=== PATIENT | male | born 1965 | race Caucasian/White ===

== ENCOUNTER 2020-03-29 07:06 | Inpatient (IN) | payer OTHER ==
[2020-03-29 07:54] LABS: Basophils % 0.8 % (0-1.3); Hematocrit 29.8 % (39.6-49.0); Lymphocytes % 14.6 % (15.3-44.8); MPV 10.1 fL (7.6-11.3); RBC Red Blood Cell Count 2.81 M/uL (4.33-5.43)
[2020-03-29 08:13] LABS: Albumin 3.3 g/dL (3.4-5.0); Bilirubin Direct 0.7 mg/dL (0-0.2); Bilirubin Total 1.1 mg/dL (0.2-1.0); Potassium 3.7 mmol/L (3.5-5.1); Protein, Total 8.2 g/dL (6.4-8.2)
--- NOTE | 2020-03-29 09:00 | RAD REPORT ---
EXAM DESCRIPTION: CT - Chest Abd Pelvis Wo Con - 03/29/2020 8:40 am CLINICAL HISTORY: Chest and abdominal pain COMPARISON: None TECHNIQUE: Computed axial tomography of the chest, abdomen and pelvis was obtained. Oral contrast wa s given. IV contrast was not requested. All CT scans are performed using dose optimization technique as appropriate and may include automated exposure control or mA/KV adjustment according to patient size. FINDINGS: The evaluation of mediastinum, matthieu, vessels and solid organs is limited secondary to the lack of IV contrast administration No mediastinal or hilar lymphadenopathy is seen. A pleural effusion is not present. A pericardial effusion is not seen. A lung consolidation is not present. The lungs are essentially clear. The the liver is enlarged. Fatty infiltration is present. Several gallstones. Spleen, pancreas, adrenals and left kidney appear grossly normal. 23 millimeter right renal cyst susp ected There is no evidence of diverticulitis. . Limited evaluation of the appendix due to lack of oral cont rast. Mild stranding is present within the fat adjacent to the hepatic flexure of the colon. The adjacent c olon wall thickness and caliber appears normal IMPRESSION: Moderate hepatomegaly with fatty infiltration Cholelithiasis
--- NOTE | 2020-03-29 09:00 | RAD REPORT ---
EXAM DESCRIPTION: [place] Single View03/29/2020 7:47 am CLINICAL HISTORY: Chest pain COMPARISON: 2015 FINDINGS: The lungs appear clear of acute infiltrate. The heart is normal size IMPRESSION: No acute abnormalities displayed
[2020-03-29 09:10] LABS: Anisocytosis SLIGHT; Blood Morphology Comment NOTED (NOT SEEN); Macrocytosis 1+; Platelet Estimate ADEQ
--- NOTE | 2020-03-29 09:11 | EDPHYS ---
Physician Documentation [facility] Name: Koko Iniguez Age: 55 yrs Sex: Male : 1965 Arrival Date: 03/29/2020 Time: 07:06 Bed 4 Private MD: ED Physician Kash Michael HPI: 03/29 07:21 This 55 yrs old Male presents to ER via Unassigned with complaints of Side rn Pain. 07:21 The patient presents with abdominal pain in the right upper quadrant. Onset: The rn symptoms/episode began/occurred at 00:00. The symptoms do not radiate. Associated signs and symptoms: Pertinent positives: nausea and vomiting, Pertinent negatives: blood in stools, chest pain, fever, testicular pain, vomiting, vomiting blood. The symptoms are described as constant, sharp. Modifying factors: The symptoms are alleviated by nothing, the symptoms are aggravated by movement, touching the area. Severity of pain: At its worst the pain was moderate in the emergency department the pain is unchanged. The patient has not experienced similar symptoms in the past. The patient has not recently seen a physician. Reports woke up at midnight, right sided pain, no radiation, threw up once, no blood. No hx of gallbladder problems. Yesterday no fever or cough. Reports pain worse with inspiration, and touching area. Fell 2 days ago but fell onto left side. No bruising. No sob. . Historical: - Allergies: 07:21 No Known Allergies; aa5 - PMHx: 07:21 Hypertension; Thyroid problem; aa5 - Immunization history:: Adult Immunizations up to date. - Social history:: Smoking status: Patient denies any tobacco usage or history of. - Family history:: not pertinent. - Hospitalizations: : No recent hospitalization is reported. ROS: 07:21 Constitutional: Negative for fever, chills, and weight loss, Eyes: Negative for injury, rn pain, redness, and discharge, Neck: Negative for injury, pain, and swelling, Cardiovascular: Negative for chest pain, palpitations, and edema, Respiratory: Negative for shortness of breath, cough, wheezing Abdomen/GI: + RUQ abd pain MS/Extremity: Negative for injury and deformity, Skin: Negative for injury, rash, and discoloration, Neuro: Negative for headache, weakness, numbness, tingling, and seizure. Exam: 07:24 Constitutional: This is a well developed, well nourished patient who is awake, alert, rn and in no acute distress. Ambulatory to room without assistance or distress Head/Face: Normocephalic, atraumatic. Chest/axilla: Normal chest wall appearance and motion. Nontender with no deformity. No lesions are appreciated. Cardiovascular: Tachycardic, regular Respiratory: Lungs have equal breath sounds bilaterally, clear to auscultation. No increased work of breathing, no retractions or nasal flaring. Abdomen/GI: Soft, + RUQ tenderness, no rebound, neg padilla MS/ Extremity: Pulses equal, no cyanosis. Neurovascular intact. Full, normal range of motion. Equal circumference. Neuro: Awake and alert, GCS 15, oriented to person, place, time, and situation. Cranial nerves II-XII grossly intact. Motor strength 5/5 in all extremities. Sensory grossly intact. Cerebellar exam normal. Normal gait. 07:45 ECG was reviewed by the Attending Physician. rn Vital Signs: 07:07 BP 138 / 91; Pulse 109; Resp 18 S; Temp 98.3(O); Pulse Ox 100% on R/A; Weight 103.42 kg aa5 (R); Height 5 ft. 11 in. (180.34 cm) (R); Pain 8/10; 08:00 BP 131 / 73; Pulse 99; Resp 17; Pulse Ox 99% ; bp 09:00 BP 125 / 69; Pulse 103; Resp 18; Pulse Ox 99% ; bp 10:00 BP 119 / 77; Pulse 96; Resp 16; Pulse Ox 99% ; bp 11:00 BP 121 / 81; Pulse 99; Resp 16; Pulse Ox 99% ; bp 12:00 BP 113 / 88; Pulse 102; Resp 16; Pulse Ox 100% ; bp 13:28 BP 120 / 66; Pulse 97; Resp 17; Pulse Ox 100% on R/A; rb1 07:07 Body Mass Index 31.80 (103.42 kg, 180.34 cm) aa5 MDM: 07:07 Patient medically screened. rn 09:08 Differential diagnosis: cholecystitis, Cholelithiasis, gastritis, gastroesophageal rn reflux disease, Hepatitis, non-specific abd pain, pancreatitis, Peptic Ulcer Disease. Data reviewed: vital signs, nurses notes, lab test result(s), radiologic studies, CT scan, plain films, and as a result, I will admit patient. Counseling: I had a detailed discussion with the patient and/or guardian regarding: the historical points, exam findings, and any diagnostic results supporting the discharge/admit diagnosis, lab results, radiology results, the need for further work-up and treatment in the hospital. Admission orders: after a detailed discussion of the patient's condition and case, the admit orders are written by me. ED course: Pt admitted to Dr. Bearden for cholelithiasis, and more notably, KALYN, creatine 3.5. NO evidence of cholecystitis, awaiting call back from Dr. Zimmerman for consultation. . 09:24 ED course: Consulted with Dr. Zimmerman, will consult on patient. . rn 03/29 07:20 Order name: Basic Metabolic Panel; Complete Time: 08:17 rn 03/29 07:20 Order name: CBC with Diff; Complete Time: 09:11 rn 03/29 07:20 Order name: Hepatic Function; Complete Time: 08:17 rn 03/29 07:20 Order name: Lipase; Complete Time: 08:17 rn 03/29 09:10 Order name: Manual Differential; Complete Time: 09:11 EDLA 03/29 09:14 Order name: Hepatitis Panel eb 03/29 07:20 Order name: IV Saline Lock; Complete Time: 07:39 rn 03/29 07:20 Order name: XRAY Chest (1 view); Complete Time: 09:03 rn 03/29 07:20 Order name: EKG; Complete Time: 07:21 rn 03/29 08:20 Order name: Chest Abd Pelvis Wo Con; Complete Time: 09:03 EDLA 03/29 07:20 Order name: Labs collected and sent; Complete Time: 07:39 rn 03/29 07:20 Order name: EKG - Nurse/Tech; Complete Time: 07:39 rn EC:45 Rate is 101 beats/min. Rhythm is regular. QRS [place] is Normal. DE interval is normal. rn QRS interval is normal. QT interval is normal. No Q waves. T waves are Normal. No ST changes noted. Clinical impression: Sinus tachycardia. Interpreted by me. Reviewed by me. Administered Medications: 10:20 Drug: NS 0.9% 1000 ml Route: IV; Rate: 1000 ml; Site: right antecubital; bp 11:05 Follow up: IV Status: Completed infusion; IV Intake: 1000ml bp 11:21 Drug: Flagyl 500 mg Volume: 100 ml; Route: IVPB; Rate: 200 ml/hr; Infused Over: 30 bp mins; Site: right antecubital; 11:54 Follow up: IV Status: Completed infusion; IV Intake: 100ml bp 11:54 Drug: Cipro 400 mg Volume: 200 ml; Route: IVPB; Infused Over: 60 mins; Site: right bp antecubital; 13:39 Follow up: IV Status: Completed infusion; IV Intake: 200ml bp Disposition: 03/29/20 09:10 Hospitalization ordered by Kasie Bearden for Inpatient Admission. Preliminary diagnosis are Cholelithiasis, Acute kidney failure. - Bed requested for Telemetry/MedSurg (Inpatient). - Status is Inpatient Admission. bp - Condition is Stable. - Problem is new. - Symptoms are unchanged. Signatures: Dispatcher [employer] EDMS Kash Michael MD MD rn Calderon, Audri, RN RN aa5 Luiz Donahue RN RN Apolonia Crowell Corrections: (The following items were deleted from the chart) 08:20 07:21 Abdomen Pelvis W Con+CT.RAD.BRZ ordered. EDLA EDLA 13:00 09:10 Hospitalization Ordered by Kasie Bearden MD for Inpatient Admission. Preliminary eb diagnosis is Cholelithiasis; Acute kidney failure. Bed requested for Telemetry/MedSurg (Inpatient). Status is Inpatient Admission. Condition is Stable. Problem is new. Symptoms are unchanged. rn 13:20 13:00 03/29/2020 09:10 Hospitalization Ordered by Kasie Bearden MD for Inpatient eb Admission. Preliminary diagnosis is Cholelithiasis; Acute kidney failure. Bed requested for [facility] ER HOLD. Status is Inpatient Admission. Condition is Stable. Problem is new. Symptoms are unchanged. eb 14:15 13:20 03/29/2020 09:10 Hospitalization Ordered by Kasie Bearden MD for Inpatient bp Admission. Preliminary diagnosis is Cholelithiasis; Acute kidney failure. Bed requested for Telemetry/MedSurg (Inpatient). Status is Inpatient Admission. Condition is Stable. Problem is new. Symptoms are unchanged. eb
--- NOTE | 2020-03-29 09:11 | ER ---
Nurse's Notes [facility] Name: Koko Iniguez Age: 55 yrs Sex: Male : 1965 Arrival Date: 03/29/2020 Time: 07:06 Bed 4 Private MD: Diagnosis: Cholelithiasis;Acute kidney failure Presentation: 03/29 07:07 Chief complaint: Patient states: RUQ pain that woke him up at 0000. Pt denies aa5 nausea/vomiting. Pt states "I don't want pain medicine". Pt states "I also have an appointment with a home health care physician about 2 weeks from now because I've had a few fainting episodes". 07:07 Coronavirus screen: Proceed with normal triage. Patient denies a cough. Patient denies aa5 shortness of breath or difficulty breathing. Patient denies measured and/or subjective temperature greater than 100.4F prior to today's visit. Patient denies travel on a cruise ship or to a country the [facility] currently lists as an affected area. Patient denies contact with known and/or suspected case of COVID-19. Ebola Screen: Patient negative for fever greater than or equal to 101.5 degrees Fahrenheit, and additional compatible Ebola Virus Disease symptoms. Initial Sepsis Screen: Does the patient meet any 2 criteria? No. Patient's initial sepsis screen is negative. Does the patient have a suspected source of infection? No. Patient's initial sepsis screen is negative. Risk Assessment: Do you want to hurt yourself or someone else? Patient reports no desire to harm self or others. Onset of symptoms was March 29, 2020. 07:07 Acuity: VIRGILIO 3 aa5 07:07 Method Of Arrival: Ambulatory aa5 Triage Assessment: 07:10 General: Appears in no apparent distress. comfortable, Behavior is cooperative, bp appropriate for age, anxious. Pain: Complains of pain in posterior aspect of right lateral abdomen and right upper quadrant. EENT: No deficits noted. Neuro: No deficits noted. Cardiovascular: No deficits noted. Respiratory: No deficits noted. GI: No signs and/or symptoms were reported involving the gastrointestinal system. : No signs and/or symptoms were reported regarding the genitourinary system. Derm: No deficits noted. Musculoskeletal: No deficits noted. Historical: - Allergies: 07:21 No Known Allergies; aa5 - PMHx: 07:21 Hypertension; Thyroid problem; aa5 - Immunization history:: Adult Immunizations up to date. - Social history:: Smoking status: Patient denies any tobacco usage or history of. - Family history:: not pertinent. - Hospitalizations: : No recent hospitalization is reported. Screenin:10 Abuse screen: Denies threats or abuse. Denies injuries from another. Nutritional bp screening: No deficits noted. Tuberculosis screening: No symptoms or risk factors identified. Fall Risk None identified. Assessment: 07:10 General: SEE TRIAGE NOTE. bp 08:34 Reassessment: PT TO CT. bp 08:44 Reassessment: PT RETURNED FROM CT. bp 10:00 Reassessment: ADMIT INITIATED. VS STABLE ON MONITOR. bp 12:59 Reassessment: Called and left a voicemail for Dr. Bearden asking for pain medication per rb1 pt. request. 13:40 Reassessment: ADMIT COMPLETE. PT RINA TO 211, REPORT TO PRIYANK ALMEIDA. bp Vital Signs: 07:07 BP 138 / 91; Pulse 109; Resp 18 S; Temp 98.3(O); Pulse Ox 100% on R/A; Weight 103.42 kg aa5 (R); Height 5 ft. 11 in. (180.34 cm) (R); Pain 8/10; 08:00 BP 131 / 73; Pulse 99; Resp 17; Pulse Ox 99% ; bp 09:00 BP 125 / 69; Pulse 103; Resp 18; Pulse Ox 99% ; bp 10:00 BP 119 / 77; Pulse 96; Resp 16; Pulse Ox 99% ; bp 11:00 BP 121 / 81; Pulse 99; Resp 16; Pulse Ox 99% ; bp 12:00 BP 113 / 88; Pulse 102; Resp 16; Pulse Ox 100% ; bp 13:28 BP 120 / 66; Pulse 97; Resp 17; Pulse Ox 100% on R/A; rb1 07:07 Body Mass Index 31.80 (103.42 kg, 180.34 cm) aa5 ED Course: 07:06 Patient arrived in ED. ds1 07:07 Kash Michael MD is Attending Physician. rn 07:07 Arm band placed on Patient placed in an exam room, on a stretcher. aa5 07:10 Patient has correct armband on for positive identification. Bed in low position. Call bp light in reach. Side rails up X2. 07:17 Emmanuel Rothman, RN is Primary Nurse. rv 07:22 Primary Nurse role handed off by Emmanuel Rothman RN bp 07:22 Luiz Donahue, ELLE is Primary Nurse. bp 07:24 Triage completed. aa5 07:31 Radiology exam delayed due to lab results not completed at this time. (BUN/Creatinine). bq 07:35 Inserted saline lock: 20 gauge in right antecubital area, using aseptic technique. bp Blood collected. 07:38 EKG done, by ED staff, reviewed by Kash Michael MD. jb1 07:48 XRAY Chest (1 view) In Process Unspecified. EDMS 08:40 Chest Abd Pelvis Wo Con In Process Unspecified. EDMS 08:40 CT completed. Patient tolerated procedure well. Patient moved back from CT. bq 09:10 Kasie Bearden MD is Hospitalizing Provider. rn 13:39 No provider procedures requiring assistance completed. Patient admitted, IV remains in bp place. Administered Medications: 10:20 Drug: NS 0.9% 1000 ml Route: IV; Rate: 1000 ml; Site: right antecubital; bp 11:05 Follow up: IV Status: Completed infusion; IV Intake: 1000ml bp 11:21 Drug: Flagyl 500 mg Volume: 100 ml; Route: IVPB; Rate: 200 ml/hr; Infused Over: 30 bp mins; Site: right antecubital; 11:54 Follow up: IV Status: Completed infusion; IV Intake: 100ml bp 11:54 Drug: Cipro 400 mg Volume: 200 ml; Route: IVPB; Infused Over: 60 mins; Site: right bp antecubital; 13:39 Follow up: IV Status: Completed infusion; IV Intake: 200ml bp Intake: 11:05 IV: 1000ml; Total: 1000ml. bp 11:54 IV: 100ml; Total: 1100ml. bp 13:39 IV: 200ml; Total: 1300ml. bp Outcome: 09:10 Decision to Hospitalize by Provider. rn 13:39 Admitted to Med/surg accompanied by tech, via wheelchair, room 211, with chart, Report bp called to PRIYANK ALMEIDA 13:39 Condition: stable 13:39 Instructed on the need for admit. 14:15 Patient left the ED. bp Signatures: Dispatcher [employer] EDEctor Gómez jb1 Veronica Dorsey, Claudine ds1 Kash Michael MD MD rn Calderon, Penny RN RN aa5 Claudia Ho, RN RN rb1 Luiz Donahue RN RN bp Stephan, ELLE Benitez RN rv
[2020-03-29] MEDS ORDERED: NA CHLORIDE 0.9% 1,000 ML ONE (10:35)
[2020-03-29] MEDS ORDERED: METRONIDAZOLE 500mg IVPB 500 MG/100 ML BAG IV ONE (11:23)
[2020-03-29] MEDS ORDERED: CIPROFLOXACIN 400mg IV 400 MG/200 ML BAG IV ONE (11:23)
--- NOTE | 2020-03-29 14:03 | CON ---
Date of Consultation: 03/29/2020 Reason For Consultation: Abdominal pain. History Of Present Illness: Patient is a 55-year-old gentleman who presented to the emergency room w ith acute onset of right upper quadrant, right lateral quadrant abdominal pain which started at midni ght. He had some chicken last night and green beans. He had some nausea and vomiting this morning. No diarrhea or constipation. No blood in his stool. No dysuria or hematuria. No sore throat, runn y nose, cough, headaches. He does have some dizziness and he has had recent episodes of syncope abou t 3 times and as an outpatient, he has been referred to Cardiology for further workup which has not b een done and he has no fever or chills at this time. Review of Systems: Otherwise unremarkable. Past Medical History: Hypertension, high cholesterol, prediabetic. Past Surgical History: Negative. Allergies: NO ALLERGIES. Social History: He denies smoking or drinking. Family History: Significant for coronary artery disease. Physical Examination: Vital Signs: Pulse is 109, blood pressure is 138/91. He is afebrile. He is awake, alert, and orient ed x3. Head and neck: Cranial nerves 2 through 12 grossly within normal limits. No neck masses. No JVD. Throat clear. Neck is supple. Chest: Clear. Heart: S1 and S2. Abdomen: Soft, nondistended, positive tenderness in the right upper quadrant, lateral to Killian's po int. No rebound, rigidity, or guarding. EXTREMITIES: Adequately perfused. Nontender. NEURO: Nonfocal. Diagnostic Data: CT of the chest, abdomen, pelvis reveals fatty infiltration, cholelithiasis, and mi ld stranding within the fat adjacent to the hepatic flexure of the colon. The adjacent colon wall th ickness however appears normal. Laboratory Data: White count is 6.9. There is no left shift. His MCV is 106.1. H and H are 10.2 a nd 29.8. Monocytes are 18. His chemistry reveals a BUN of 32, creatinine of 3.48, CO2 is 25. His gl ucose is 159, calcium is 9.8, his total bilirubin is 1.1, direct bilirubin is 0.7, AST is 117, ALT is 86, alkaline phosphatase is 206 albumin is 3.3, lipase is 290. Assessment: A 55-year-old gentleman with multiple medical problems, as well as abdominal pain, libby lithiasis, possibly some colitis, acute renal failure, and history of syncope. Recommendations: At this time, patient needs further workup with an evaluation of his kidneys with N ephrology consultation. His history of syncope needs to be evaluated as well. Perhaps the Cardiolog y or neurological or both evaluations need to be done. As far as the gallbladder, there is no radiog raphic evidence of acute cholecystitis; however, he is tender in the right upper quadrant that could be from the fat stranding, fat inflammation next to the colon, but with the liver functions being abn ormal, I would recommend getting an MRCP and GI evaluation. After the aforementioned workup is compl eted, we will make further recommendations. Patient should be on empiric antibiotics. Plan of care was discussed with Dr. Bearden and Dr. Michael. ROMÁN/MICHAEL Voice ID: [id number] Report ID: [id number]
[2020-03-29] MEDS ORDERED: D5.45NS W/KCL 20MEQ 1,000 ML IV SCH (14:44)
[2020-03-29] MEDS ORDERED: ONDANSETRON 4 MG/2 ML VIAL IV PRN (14:44)
[2020-03-29] MEDS ORDERED: ACETAMINOPHEN 500 MG TAB PO PRN (14:44)
[2020-03-29] MEDS: MORPHINE 2 MG/ML SYR IV PRN ×3 (15:19→23:38)
[2020-03-29 16:01] VITALS: BMI 32.7
[2020-03-29] MEDS: METRONIDAZOLE 500mg IVPB 500 MG/100 ML BAG IV SCH (16:04)
--- NOTE | 2020-03-29 16:39 | RAD REPORT ---
EXAM DESCRIPTION: US - Abdomen Exam Complete - 03/29/2020 4:09 pm CLINICAL HISTORY: Abdominal pain COMPARISON: none FINDINGS: The liver has an increased echotexture. The liver is enlarged Multiple gallstones. The gallbladder wall is thickened. . The biliary tree is normal caliber. The pancreas is normal in size and echotexture The right kidney measures 11 centimeters with a normal echotexture. The left kidney measures 13 centimeters with a normal echotexture. The spleen measures 14 centimeters. The abdominal aorta and inferior vena cava appear unremarkable IMPRESSION: Increased hepatic echotexture consistent with fatty infiltration. Hepatomegaly Cholelithiasis. Thickened gallbladder wall may indicate cholecystitis Mild splenomegaly
[2020-03-29] MEDS ORDERED: Ringers Lactate 1,000 ML IV SCH ×2 (18:00)
[2020-03-29] MEDS: CEFTRIAXONE/SWI 1gm 1 GM/10 ML SYR IVP SCH (20:39)
--- NOTE | 2020-03-29 22:00 | HP ---
Date of Admission: 03/29/2020 Primary Care Physician: Dr. Downs. Consultants: Dr. Loya with GI and Dr. Zimmerman with General Surgery. Chief Complaint: Right upper quadrant abdominal pain. History Of Present Illness: Patient is a 55-year-old male with past medical history of hypertension, hypothyroidism, hyperlipidemia, comes in to the hospital with acute right upper quadrant abdominal p ain. Patient states that he woke up around midnight with right upper quadrant abdominal pain which w as nonradiating, worse with movement. Patient denies any previous history of pain in the similar pos ition. Patient did report some nausea and vomiting associated with the pain. Otherwise, he denies a ny fevers, chills, or any recent exposure to the pandemic. Patient came into the ER for further eval uation. His symptoms were constant, moderate, progressively worsening. In the ER, his workup reveal ed normal white blood cell count. His liver enzymes showed a total bilirubin of 1.1, AST was 117, AL T 86, alkaline phosphatase 206. Hepatitis panel was obtained and is pending. CT scan of his chest, abdomen and pelvis shows moderate hepatomegaly with fatty infiltration and cholelithiasis and an inci dental right renal cyst. Lungs are clear. Patient was given pain medications, IV antibiotics and IV fluids and then referred for admission. When the patient was seen in the ER, he was awake, alert, o riented x3, not in some acute distress. Past Medical History: Hypertension, hypothyroidism, hyperlipidemia. Surgical History: None. Allergies: NO KNOWN DRUG ALLERGIES. Social History: Patient denies any tobacco use, alcohol use, or illicit drug use. Family History: Patient denies any history of gallbladder disease in the family. Review of Systems: Ten-point system reviewed, negative except as per HPI. Physical Examination: Vital Signs: Temperature 98.3, heart rate 109, respirations 18, blood pressure 138/91, O2 100% on ro om air. General: Awake, alert, oriented x3 obese male in some mild distress, ill-appearing. HEENT: Normocephalic, atraumatic. PERRLA, EOMI. Dry mucous membranes. Oropharynx is clear. Conju nctivae anicteric. Neck: Supple. No JVD trachea midline. CV: S1, S2. Sinus tachycardia. Peripheral pulses present. No murmurs. Respiratory: Moving air well bilaterally. No wheezing or stridor. No use of accessory muscles. Gastrointestinal: Abdomen is soft. Tenderness to palpation in the right upper quadrant. There is s ome voluntary guarding. No rebound or rigidity. Positive bowel sounds. Extremities: No clubbing, cyanosis. Minimal pedal edema. No calf tenderness. Neuro: Cranial nerves 2 through 12 intact grossly. No focal neurological deficit. Speech is normal . Skin: No rashes. Normal skin turgor. Psych: Mood is okay. Affect is full. Insight and judgment are good. Laboratory Data: Sodium 137, potassium 3.7, chloride 101, CO2 of 25, BUN 32, creatinine 3.48, glucos e 159. T bilirubin 1.1, AST 117, ALT is 86, alkaline phosphatase 206, albumin 3.3. WBC 6.9, H and H 10.2 and 29.8, platelets 156, neutrophils 65%. Imaging Studies: CT chest, abdomen pelvis: Moderate hepatomegaly with fatty infiltration and cholel ithiasis, 23 mm right renal cyst. Chest x-ray shows no acute abnormalities, personally reviewed. Assessment And Plan: A 55-year-old male with 1.Acute cholelithiasis. Ultrasound not available. We will obtain MRCP. Patient has elevated total bilirubin. Rule out common bile duct stone. We will consult GI, Dr. oLya for possible ERCP. Dr. Zimmerman has been consulted. We will continue with empiric antibiotics, IV fluids. Keep n.p.o., antie metics and pain medications with IV morphine. 2.Fatty liver disease. Patient has been counseled. He will need a drastic change in his diet and e xercise regimen. He understands this may lead to liver cirrhosis if untreated for 10-20 years and ma y require liver transplant and may even result in . 3.Hyperbilirubinemia secondary to above. 4.Acute kidney injury, unclear etiology. Consult Nephrology. Patient will need workup. Last known creatinine from 2016 was normal. Patient denies any history of chronic kidney disease. We will nee d to query regarding NSAID use. We will start on IV fluids and monitor creatinine level. Avoid any NSAIDs. 5.Essential hypertension. Resume home medications as appropriate. 6.Hypothyroidism. Continue Synthroid. 7.Mixed hyperlipidemia, statin. 8.Deep vein thrombosis prophylaxis with SCDs and Lovenox. PLAN: Admit the patient to Med-Surg, place as inpatient. Length of stay greater than 2 midnights. BELÉN Voice ID: [id number]
[2020-03-29] MEDS: Ringers Lactate 1,000 ML IV SCH (23:36)
[2020-03-30] MEDS: METRONIDAZOLE 500mg IVPB 500 MG/100 ML BAG IV SCH ×3 (01:29→17:35)
--- NOTE | 2020-03-30 01:56 | CON ---
Date of Consultation: 03/29/2020 Chief Complaint: Acute on chronic kidney injury. History Of Present Illness: Patient has nonoliguric urine output. Patient is admitted to the hospital because of generalized weakness. Nephrology consultation is requested for severe acute kidney injury. BUN is 32, creatinine 3.48. Electrolytes show sodium 136, potassium 3.7, chloride 101, CO2 25, calcium 9.8, albumin 3.3, and total protein 8.2. Previous medical records review to assess kidney function and on previous occasion when patient was admitted to the hospital back in 2016, creatinine level was 0.86 and BUN was 17. The patient was evaluated by Surgical team for possible cholecystitis, this 55-year-old man with past medical history of hypertension, hypothyroidism, hyperlipidemia. He came to the hospital because of acute right upper quadrant abdominal pain associated with some nausea. He denied any worsening of the pain with bladder movement. Patient denies previous history of similar problems and he had some nausea, vomiting associated with right upper quadrant pain. He denies fever, chills. In ER, workup showed elevated AST up to 117, ALT 86, and bilirubin of 1.1. Hep panel was obtained. ALP was 206. CT scan of the chest, abdomen and pelvis with non-contrast study showed moderate hepatomegaly with fatty infiltration and cholelithiasis, incidental finding of the right kidney cyst. Lungs were clear. Patient was started on antibiotics, was evaluated by Surgical team for cholecystitis. Past Medical History: Hypertension, hypothyroidism, hyperlipidemia. Surgical History: None. Social History: Denies tobacco, alcohol, or illicit drugs. Family History: Denies history of kidney disease in the family. Review of Systems: Constitutional: Denies syncope. Denies fever, chills. Eyes: Denies vision changes. Ears, Nose, mouth and Throat: Denies sore throat, earache. Respiratory: Denies PND, orthopnea. Cardiovascular: Denies chest pain, palpitation. GI: Has nausea, vomiting, and right upper quadrant abdominal pain. : Denies dysuria, hematuria. All other systems reviewed and all are negative. Physical Examination: General: Oriented x3 and follows commands. Eyes: Anicteric sclerae. EOMI. Ears, Nose, mouth and Throat: Oral mucosa moist. No pallor. Neck: Supple. No bruits. Lungs: Clear to auscultation bilaterally. Heart: S1, S2. No pericardial friction rub ABDOMEN: Soft, benign. Right upper quadrant tenderness. No rebound. No guarding. Extremities: No edema. No clubbing. No cyanosis. SKIN: no oozing , no drainage Laboratory Data: Sodium 137, potassium 3.7, chloride 101, CO2 of 25, BUN 32, creatinine 3.48, glucose 159. Total bilirubin of 1.1, AST 117, ALT 86, ALP 206, albumin 3.3. WBC 6.9, hemoglobin 10.2, platelet count 156,000. CT scan of the chest shows moderate hepatomegaly with fatty infiltration and cholelithiasis, 23 mm right renal cyst. No hydronephrosis. Chest x-ray did not show acute changes. Assessment And Plan: Patient was found to have severe acute kidney injury. There is no available records to assess most recent baselines, although on previous occasion, he did not have abnormal finding as far as a kidney profile. Patient will have renal ultrasound to assess for possible chronic kidney disease. The plan is to monitor renal function and electrolytes and advance IV fluids. Avoid nonsteroidal anti-inflammatory medication. Assess CK level to rule out rhabdomyolysis. Patient has acute tubular necrosis and prerenal azotemia due to renal hypoperfusion in setting of hypovolemia related to decreased p.o. intake. Patient was found to have elevated liver function test. Patient may need an a endoscopic retrograde cholangiopancreatography. Primary team is ordering MRCP. Acute kidney injury. Monitor urine output. Patient may require dialysis if renal function does not improve. LATISHA/MICHAEL Voice ID: [id number] Report ID: [id number] ELYSSA
[2020-03-30] MEDS: MORPHINE 2 MG/ML SYR IV PRN ×3 (04:22→20:43)
[2020-03-30 06:32] LABS: Absolute Lymphocytes (CBC) 0.6 K/uL (0.7-4.9); Basophils % 1.4 % (0-1.3); Hematocrit 25.9 % (39.6-49.0); Lymphocytes % 13.8 % (15.3-44.8); MPV 9.8 fL (7.6-11.3); RBC Red Blood Cell Count 2.44 M/uL (4.33-5.43)
[2020-03-30 06:34] LABS: Albumin 2.7 g/dL (3.4-5.0); Bilirubin Total 0.8 mg/dL (0.2-1.0); Magnesium 1.6 mg/dL (1.8-2.4); Phosphorus 2.1 mg/dL (2.5-4.9); Potassium 3.6 mmol/L (3.5-5.1); Protein, Total 7.3 g/dL (6.4-8.2)
[2020-03-30] MEDS: Ringers Lactate 1,000 ML IV SCH ×3 (08:42→20:42)
[2020-03-30] MEDS: CEFTRIAXONE/SWI 1gm 1 GM/10 ML SYR IVP SCH ×2 (08:45→20:43)
[2020-03-30] MEDS: ENOXAPARIN 30 MG/0.3 ML SQ SCH (08:45)
[2020-03-30] MEDS ORDERED: KCL 20 MEQ/100 mL IVPB 20 MEQ/100 ML BAG IV ONE (09:00)
[2020-03-30] MEDS ORDERED: MAGNESIUM SULFATE 1 gm IVPB 1 GM/100 ML BAG IV ONE (09:00)
[2020-03-30] MEDS ORDERED: KCL 20 MEQ/100 mL IVPB 20 MEQ/100 ML BAG IV SCH (09:00)
[2020-03-30] MEDS ORDERED: ENOXAPARIN 40 MG/0.4 ML SQ SCH (09:00)
--- NOTE | 2020-03-30 10:26 | PN ---
Subjective: Patient is awake, alert, says he has no pain when he is sitting still but if he tries to move he does feel pain in the right lateral upper quadrant. No nausea or vomiting. He h ad an ultrasound, which showed cholelithiasis. MRCP is still pending and nephrology consultation was appreciated. Cardiology consultation is pending. Physical Examination: Vital Signs: Stable. He is afebrile. Abdomen: Soft, nondistended. Positive bowel sounds. Positive right upper and right lateral quadran t tenderness, minimal rebound. No rigidity or guarding. Extremity: Adequately perfused. Nontender. Neuro: Nonfocal. Laboratory Data: Shows a normal white count, and there is no left shift. His H and H however with h ydration have down to 8.6 and 25.9. MCV is 106.4. Chemistry shows BUN and creatinine are 32 and 2.7 4 which is improved and his AST, ALT and alkaline phosphatase have also improved but they are not com pletely normal yet. Assessment: Likely acute cholecystitis and cholelithiasis. The patient with a history of syncope an d acute renal failure. Recommendations: Continue antibiotics. Await MRCP and Cardiology evaluation and if cleared by Cardi ology and MRCP is negative, we will proceed with laparoscopic cholecystectomy tomorrow. Plan of care discussed in detail with the patient and Dr. Bearden. ROMÁN/MICHAEL Voice ID: [id number] Report ID: [id number]
[2020-03-30] MEDS ORDERED: ALBUTEROL 2.5 MG/3 ML NEB SOL NEB PRN (11:09)
[2020-03-30 11:14] LABS: Folic Acid, (Folate) > 20.0 ng/mL (3.1-17.5)
[2020-03-30] MEDS ORDERED: ALBUTEROL 2.5 MG/3 ML NEB SOL ONE (11:20)
--- NOTE | 2020-03-30 13:10 | EKG ---
Test Date: 2020-03-29 Test Time: 07:35:37 Rehab Department Manager: ANGEL MEASUREMENT RESULTS: Intervals: Rate: 101 MN: 128 QRSD: 90 QT: 358 QTc: 464 [place]: P: 32 MN: 128 QRS: 3 T: -7 INTERPRETIVE STATEMENTS: Sinus tachycardia Nonspecific ST abnormality Abnormal ECG No previous ECG available for comparison Electronically Signed On 03-30-20 13:10:04 CDT by Binh Lan
--- NOTE | 2020-03-30 14:07 | PN ---
Date of Progress Note: 03/30/2020 Subjective: Patient seen and examined. Chart reviewed and case discussed with RN and Dr. Zimmerman. Avery albert still complaining of significant pain in the right upper quadrant. Abdominal ultrasound showed acute cholecystitis yesterday. Patient continues to have nausea requiring antiemetics and IV pain m edications. Medications: List reviewed. Physical Examination: Vital Signs: Temperature 97.8, heart rate 98, blood pressure 127/74, respirations 20, O2 of 96% on r oom air. General: Awake, alert, oriented x3, in some mild distress due to pain. Obese male. CV: S1, S2. Regular rate and rhythm. Peripheral pulses present. Respiratory: Moving air well bilaterally. No wheezing or stridor. Gastrointestinal: Abdomen is distended. Tenderness to palpation in the right upper quadrant. Patie nt has some voluntary guarding. No rebound tenderness. Extremities: No clubbing, cyanosis, or edema. Neurologic: Nonfocal. Laboratory Data: Sodium 142, potassium 3.6, chloride 106, CO2 of 24, BUN 32, creatinine 2.74, glucos e 113, calcium 8, phosphorus 2.1, magnesium 1.6, AST 81, ALT 58, alkaline phosphatase 160. CK is 177 . Albumin 2.7. WBC 4.4, H and H 8.6 and 25.9, platelets 133, MCV is 106.4. Abdominal ultrasound sh ows increased hepatic echotexture consistent with fatty infiltration, hepatomegaly, cholelithiasis, t hickened gallbladder wall may indicate cholecystitis. Mild splenomegaly. Assessment And Plan: 55-year-old male with; 1.Acute cholecystitis. Ultrasound was able to be done yesterday. No CBD dilatation. MRCP pending, will be obtained tomorrow, unable to be done on the weekend. Appreciate Dr. Zimmerman's input. Dr. Riggs att also on board. We will continue with empiric antibiotics, keep n.p.o. and continue IV fluids. P atient is still having significant amount of pain. Once MRCP is negative, the patient will go for [facility] after cardiac clearance. 2.Prior history of syncopal episodes. We will need cardiac clearance. May be related to dehydratio n. Patient work outside building houses. Cardiology consultation has been obtained. We will obtain carotid ultrasound. 3.Acute kidney injury, likely due to prerenal azotemia. Appreciate Nephrology input. Continue IV f luids. Patient's kidney function is improving. Ultrasound is pending for kidneys. Patient does use NSAIDs every now and then. We will continue to avoid. CK level is normal. No rhabdomyolysis. 4.Fatty liver disease. Outpatient GI workup. 5.Essential hypertension, stable. We will continue hydralazine p.r.n. 6.Hypothyroidism. 7.Mixed hyperlipidemia. P.o. medications on hold at this time. 8.Anemia, megaloblastic, likely partly related to dilution as the patient is on significant amount o f fluids. We will check vitamin B12 level and folate level. Patient did not report any significant chronic alcohol use at this time. /MICHAEL Voice ID: [id number] Report ID: [id number]
--- NOTE | 2020-03-30 14:47 | P.PN ---
Subjective Date of Service: 03/30/20 Chief Complaint: RUQ pain Subjective: Improving (Feels better today with increased urination and less RUQ pain, down slightly. U/S abdomen revealed cholecystitis, cholelithiasis, and fatty liver. Cr has improved from 3.5 to 2.7 overnight with increased IVFs.) Review of Systems 10-point ROS is otherwise unremarkable General: Weakness (Improved) Gastrointestinal: Abdominal Pain (Less RUQ pain) Physical Examination - Vital Signs Temperature: 97.8 F Blood Pressure: 127/74 Pulse: 98 Respirations: 20 Pulse Ox (%): 96 - Physical Exam General: Alert, In no apparent distress, Oriented x3, Cooperative HEENT: Atraumatic, Normocephalic, PERRLA, EOMI, Sclerae nonicteric Neck: Supple Respiratory: Normal air movement Cardiovascular: Normal pulses Gastrointestinal: No rebound, Tenderness (RUQ), Guarding Neurological: Normal speech, Normal strength at 5/5 x4 extr Assessment And Plan - Current Problems (Diagnosis) (1) RUQ abdominal pain Current Visit: Yes Status: Acute (2) Abnormal CT of the abdomen Current Visit: Yes Status: Acute (3) Abnormal ultrasound of abdomen Current Visit: Yes Status: Acute (4) Cholecystitis with cholelithiasis Current Visit: Yes Status: Acute (5) Abnormal transaminases Current Visit: Yes Status: Acute (6) Renal failure Current Visit: Yes Status: Acute Comment: Improved with increased IVFs. (7) Fatty liver Current Visit: Yes Status: Acute - Plan REC: 1) continue IVFs 2) continue prn pain medications and anti-emetics 3) lap libby as per surgery 4) monitor labs 5) outpatient w/u of fatty liver
[2020-03-30] MEDS: POTASS/SODIUM PHOSPHATE 1 PKT POWD.PACK PO SCH ×3 (17:35→20:43)
--- NOTE | 2020-03-30 18:11 | RAD REPORT ---
EXAM DESCRIPTION: - CP - 03/30/2020 6:00 pm CLINICAL HISTORY: syncope Headache, drowsiness COMPARISON: Chest Abd Pelvis Wo Con dated 03/29/2020; Abdomen Exam Complete dated 03/29/2020 TECHNIQUE: Real-time sonographic evaluation of both carotid systems was performed. Doppler interroga tion was performed with waveform tracing bilaterally. FINDINGS: Normal high resistance waveforms are noted in both external carotid arteries. The common c arotid arteries and internal carotid arteries show normal low resistance waveforms. No significant plaque formation is seen. Peak systolic and end diastolic velocity values and the ICA/ CCA ratios are in the non-hemodynamically significant range. Antegrade flow noted in the left vertebral artery. Right vertebral artery was not clearly identified. IMPRESSION: No significant atherosclerotic changes noted. No evidence of a hemodynamically significant stenosis.
--- NOTE | 2020-03-30 23:53 | PN ---
Date of Progress Note: 03/30/2020 Chief Complaint: Acute on chronic kidney injury. History Of Present Illness: Patient has nonoliguric urine output. Patient was admitted to the hospital because of generalized weakness. Nephrology consultation was requested for severe acute kidney injury. BUN was 32, creatinine 3.48. Electrolytes showed sodium 136, potassium 3.7, chloride 101, CO2 25, calcium 9.8, albumin was 3.3, total protein 8.2. Review of previous medical records showed creatinine 0.86 back in 2016. Patient was started on IV fluids and renal function gradually improved. CT scan of the chest abdomen and pelvis with noncontrast study showed moderate hepatomegaly with fatty infiltration of the liver and cholelithiasis, incidental finding to the right kidney cyst, although there was no hydronephrosis present. There is no evidence of obstructive uropathy. Review of Systems: Denies fever, chills. Physical Examination: Lungs: Clear to auscultation bilaterally. Heart: S1, S2. Abdomen: Soft, benign. Extremities: No edema. Impression And Plan: Acute on chronic kidney injury. Renal function has improved. BUN today is 32, creatinine 2.74, phosphorus 2.1. Plan is to monitor electrolytes and plan replacement for hypophosphatemia as needed. There is no evidence of rhabdomyolysis. CK level is 117. Hypoalbuminemia is present, although this may represent a poor p.o. intake and underlying chronic liver disease. Patient has acute cholecystitis and there is no CBD dilatation and MRCP is pending. GI consulted. Acute kidney injury with prerenal azotemia. Continue IV fluids. Ultrasound of the kidneys was ordered to rule out chronic kidney disease. Avoid nephrotoxic medication. CK level is normal at this point. Patient will continue IV fluids as tolerated. EB/MODL Voice ID: [id number] Report ID: [id number] ELYSSA
[2020-03-31] MEDS: MORPHINE 2 MG/ML SYR IV PRN ×2 (00:30→04:57)
[2020-03-31] MEDS: METRONIDAZOLE 500mg IVPB 500 MG/100 ML BAG IV SCH ×3 (00:30→16:26)
[2020-03-31] MEDS: Ringers Lactate 1,000 ML IV SCH ×5 (01:40→21:35)
[2020-03-31 06:35] LABS: Absolute Lymphocytes (CBC) 0.6 K/uL (0.7-4.9); Basophils % 1.4 % (0-1.3); Hematocrit 27.3 % (39.6-49.0); Lymphocytes % 13.3 % (15.3-44.8); RBC Red Blood Cell Count 2.57 M/uL (4.33-5.43)
[2020-03-31 07:39] LABS: Albumin 2.8 g/dL (3.4-5.0); Bilirubin Direct 0.6 mg/dL (0-0.2); Bilirubin Total 0.9 mg/dL (0.2-1.0); Magnesium 1.9 mg/dL (1.8-2.4); Phosphorus 2.3 mg/dL (2.5-4.9); Potassium 3.5 mmol/L (3.5-5.1); Protein, Total 7.3 g/dL (6.4-8.2)
[2020-03-31] MEDS ORDERED: POTASSIUM PHOS IN 0.9 % NACL 15 MMOL/250 ML BAG IV ONE (07:44)
[2020-03-31] MEDS: CEFTRIAXONE/SWI 1gm 1 GM/10 ML SYR IVP SCH ×2 (07:58→20:56)
--- NOTE | 2020-03-31 09:26 | RAD REPORT ---
EXAM DESCRIPTION: MRICholangiogram03/31/2020 8:44 am CLINICAL HISTORY: Abdominal pain COMPARISON: November 2018 cat scan and ultrasound TECHNIQUE: Magnetic resonance cholangiogram was performed.3D MIP reconstruction performed FINDINGS: Images are degraded as the patient had difficulty suspending respiration. Multiple gallstones. The gallbladder wall is thickened. The biliary tree is normal caliber without a filling defect visualized. Pancreatic duct is normal caliber Small right pleural effusion IMPRESSION: Cholelithiasis. Thickened gallbladder wall probably indicates cholecystitis
--- NOTE | 2020-03-31 11:28 | ECHO ---
HEIGHT: 5 ft 10 in WEIGHT: 228 lb 0 oz DATE OF STUDY: 03/31/[address]: Kasie Bearden MD 2-DIMENSIONAL: YES M.MODE: YES DOPPLER: YES COLOR FLOW: YES TDS: NO PORTABLE: NO DEFINITY: NO BUBBLE STUDY: NO DIAGNOSIS: SYNCOPE CARDIAC HISTORY: CATHERIZATION: NO SURGERY: NO PROSTHETIC VALVE: NO PACEMAKER: NO MEASUREMENTS (cm) DIASTOLIC (NORMALS) SYSTOLIC (NORMALS) IVSd 0.8 (0.6-1.2) LA Diam 3.2 (1.9-4.0) LVEF 63% LVIDd 5.4 (3.5-5.7) LVIDs 3.6 (2.0-3.5) %FS 35% LVPWd 0.9 (0.6-1.2) Ao Diam 2.9 (2.0-3.7) 2 DIMENSIONAL ASSESSMENT: RIGHT ATRIUM: NORMAL LEFT ATRIUM: NORMAL RIGHT VENTRICLE: NORMAL LEFT VENTRICLE: NORMAL TRICUSPID VALVE: NORMAL MITRAL VALVE: NORMAL PULMONIC VALVE: NORMAL AORTIC VALVE: NORMAL PERICARDIAL EFFUSION: NONE AORTIC ROOT: NORMAL LEFT VENTRICULAR WALL MOTION: NORMAL DOPPLER/COLOR FLOW: NORMAL COMMENTS: NORMAL 2D ECHOCARDIOGRAM WITH DOPPLER. NO WALL MOTION ABNORMALITY. NO EFFUSION. TECHNOLOGIST: Lilo ASHLEY
[2020-03-31] MEDS ORDERED: MIDAZOLAM HCL 2 MG/2 ML INJ ONE (11:51)
[2020-03-31] MEDS ORDERED: FENTANYL CITR 100 MCG/2 ML ONE ×3 (11:51→12:49)
[2020-03-31] MEDS ORDERED: ROCURONIUM 50 MG/5 ML VIAL IV ONE (11:51)
[2020-03-31] MEDS ORDERED: propofoL 200 MG/20 ML VIAL IV ONE (11:51)
[2020-03-31] MEDS ORDERED: LIDOCAINE 1% MPF 5 ML VIAL ONE (11:51)
[2020-03-31] MEDS ORDERED: BUPIVACAINE 0.5% PF 10 ML VIAL ONE (12:08)
[2020-03-31] MEDS ORDERED: NA CHLORIDE 0.9% 1,000 ML ONE (12:29)
[2020-03-31] MEDS ORDERED: NEOSTIGMINE 1 MG/ML -5 ML ONE (12:52)
[2020-03-31] MEDS ORDERED: KETOROLAC 30 MG/ML INJ ONE (12:52)
[2020-03-31] MEDS ORDERED: GLYCOPYRROLATE 0.2 MG/ML SYR ONE (12:52)
[2020-03-31] MEDS ORDERED: ONDANSETRON 4 MG/2 ML VIAL ONE ×2 (12:53→13:34)
--- NOTE | 2020-03-31 13:02 | P.OP ---
Horseradish Maker: Shelia DASILVA Preoperative diagnosis: Acute cholecystitis and cholelithiasis Postoperative diagnosis: same Primary procedure: Lap Gabriella Anesthesia: Gen Estimated blood loss: min Specimen: GB Findings: as above Complications: None Transferred to: Recovery Room Condition: Good
[2020-03-31] MEDS ORDERED: Mastisol Adhesive Liq ONE (13:13)
--- NOTE | 2020-03-31 13:18 | PN ---
Date of Progress Note: 03/31/2020 Subjective: Patient seen and examined. Chart reviewed and case discussed with RN, Cardiology, as well as Dr. Zimmerman. Patient is still having some pain. Abdomen is distended, going for surgery today. Had echocardiogram done earlier this morning as well as MRCP, was cleared for surgery by Dr. Lan. Medications: List reviewed. Physical Examination: Vital Signs: Temp 98.7, heart rate 92, blood pressure 122/69, respirations 15, O2 97% on room air. GENERAL: Awake, alert, oriented x3, in some mild distress due to pain, obese male, slightly ill-appearing. Cardiovascular: S1, S2. Regular rate and rhythm. Respiratory: Moving air well bilaterally. No wheezing or stridor. Gastrointestinal: Abdomen is distended, tenderness to palpation in the right upper quadrant. No rebound or guarding. Positive bowel sounds. Extremities: No clubbing, cyanosis, or edema. Neurologic: Nonfocal. Laboratory Data: Sodium 138, potassium 3.5, chloride 106, CO2 23, BUN 2.05, glucose 135, phosphorus 2.3, magnesium 1.9, AST 79, ALT 51, alkaline phosphatase 162. WBC 4.8, H and H 9.2 and 27.3, platelets 177, neutrophils 63%. MRCP shows acute cholecystitis and cholelithiasis. Biliary tree is normal without a filling defect. Assessment And Plan: A 55-year-old male with. 1. Acute cholecystitis. MRCP is negative for choledocholithiasis. It shows cholelithiasis only and no filling defect. Patient will be going for laparoscopic cholecystectomy today. He was cleared by Cardiology. Echocardiogram was normal. 2. Prior history of syncopal episodes. Echocardiogram normal. Low to moderate risk in terms of his other medical comorbidities. Carotid artery ultrasound did not show any significant atherosclerotic changes, may be due to his dehydration and working out doors. 3. Acute kidney injury likely prerenal azotemia versus acute tubular necrosis. Appreciate Nephrology input. Continue IV fluids. Creatinine is improving. We will continue to monitor. Avoid NSAIDs. 4. Fatty liver disease. Follow up with GI. 5. Essential hypertension, stable. 6. Hypothyroidism. 7. Hyperlipidemia, p.o. medications on hold at this time. 8. Anemia, macrocytic, may be related to alcohol use. Vitamin B12 and folate level are normal. Would recommend further workup as an outpatient by Hematology. Plan likely discharge in next 24-48 hours once surgery is complete and kidney function improves and cleared by Nephrology. /MICHAEL Voice ID: [id number] Report ID: [id number] MTDD
[2020-03-31] MEDS ORDERED: PROMETHAZINE INJ 25 MG/ML AMP ONE (13:34)
[2020-03-31] MEDS ORDERED: HYDROMORPHONE HCL 1 MG/ML INJ ONE (13:53)
[2020-03-31] MEDS ORDERED: HYDROCODONE/APAP 7.5/325 MG TAB PO PRN (13:55)
[2020-03-31] MEDS ORDERED: HYDROMORPHONE HCL 1 MG/ML INJ IV PRN (13:55)
--- NOTE | 2020-03-31 23:43 | OP ---
Date of Procedure: 03/31/2020 Surgeon: Hamilton Zimmerman MD Poultry Dresser: VIDYA Marin. Preoperative Diagnosis: Acute cholecystitis and cholelithiasis. Postoperative Diagnosis: Acute cholecystitis and cholelithiasis. Procedure Performed: Laparoscopic cholecystectomy. Estimated Blood Loss: Minimal. Specimen: Gallbladder. Finding: Liver showed evidence of extensive fatty infiltration, possible early cirrhosis. Anesthesia: General. Complications: None. Disposition: Patient tolerated the procedure in stable condition, taken to Recovery in good general condition. Brief History: Patient is a 55-year-old gentleman with acute cholecystitis and cholelithiasis. MRCP was negative. He had elevated liver function tests, and cardiology clearance was obtained. Echo wa s negative. EKG was within normal limits, therefore informed consent for a laparoscopic cholecystect drew was done. Patient understood the risks, benefits, and alternatives and agrees to procedure. Procedure In Detail: Patient was brought to the OR and placed in supine position. General anesthesi a was begun. Patient was prepped and draped in the usual sterile fashion. Marcaine 0.5% was infiltr ated locally. A 15-blade was used to make a 1 cm supraumbilical midline incision. Subcutaneous tiss ue was divided. Fascia was identified and divided. #1 Vicryl stay suture was placed. Peritoneal ca vity entered with sharp and blunt dissection. A 12 mm trocar was placed into the peritoneal cavity u nder direct vision. Pneumoperitoneum was established. Three 5 mm trocars were placed, 1 in the epig astrium just to the right of midline and 2 in the right subcostal region. Laparoscopy revealed a nod ular fatty infiltrated liver, hard, possibly early cirrhosis. Gallbladder had some adhesions to it, which were taken down with sharp and blunt dissection, and the fundus was identified and retracted tripathi periorly. Infundibulum was identified and retracted inferolaterally. Cystic duct and cystic artery were clearly identified with blunt dissection. Clips were placed. Both sutures were divided. Caute ry was used to remove the gallbladder from the liver bed. Bleeding on the liver bed was controlled w ith cautery. Gallbladder retrieved through the umbilicus via an EndoCatch bag. Right upper quadrant was irrigated. Effluent was clear. No evidence of bleeding or bile leakage appreciated. Subsequen tly, all trocars were removed under direct vision. Stay sutures were tied to each other to reapproxi mate the fascial defect. Subcutaneous wounds were irrigated. Bleeding controlled with cautery. 3-0 chromic used to reapproximate the subcutaneous tissue and close the skin. Sterile dressing was appli ed. Patient was awakened and taken to Recovery in good general condition. /MODBry Voice ID: [id number] Report ID: [id number]
[2020-04-01] MEDS: METRONIDAZOLE 500mg IVPB 500 MG/100 ML BAG IV SCH ×2 (00:03→08:33)
--- NOTE | 2020-04-01 03:35 | PN ---
Date of Progress Note: 03/31/2020 Subjective: Acute on chronic kidney injury. Patient has nonoliguric urine output. He was admitted to the hospital because of generalized weakness. Nephrology consultation was requested for elevated BUN and creatinine. Patient was found to have severe acute kidney injury. BUN was 32, creatinine 3. 48. The patient was started on IV fluids. Previous records showed that creatinine level back in 201 6, was 0.86. Patient denies history of chronic kidney disease. The patient was started on IV fluids and renal function gradually improved. CT scan of the chest and abdomen with and without contrast showed moderate hepatomegaly, fatty infiltration of the liver, and cholelithiasis. Incidental finding was right kidney cyst. Review of Systems: Denies fever, chills. Physical Examination: Lungs: Clear to auscultation bilaterally. Heart: S1, S2. Abdomen: Soft, benign. Nontender. Extremities: No rebound, no guarding. Impression And Plan: 1.Acute on chronic kidney injury, nonoliguric. Continue IV fluids. Renal function is gradually imp roving. There is no evidence of metabolic acidosis, there is no rhabdomyolysis, hypoalbuminemia like ly due to poor p.o. intake. Patient will continue high-protein diet as tolerated. 2.Acute cholecystitis. Patient is awaiting MRCP. 3.Avoid nephrotoxic medication. Monitor blood pressure closely. LATISHA/MICHAEL Voice ID: [id number] Report ID: [id number]
[2020-04-01 05:45] LABS: Absolute Lymphocytes (CBC) 0.5 K/uL (0.7-4.9); Basophils % 1.3 % (0-1.3); Hematocrit 28.2 % (39.6-49.0); Lymphocytes % 8.7 % (15.3-44.8); MPV 9.2 fL (7.6-11.3); RBC Red Blood Cell Count 2.64 M/uL (4.33-5.43)
[2020-04-01 06:01] LABS: Albumin 2.7 g/dL (3.4-5.0); Bilirubin Total 0.9 mg/dL (0.2-1.0); Potassium 4.3 mmol/L (3.5-5.1)
[2020-04-01] MEDS ORDERED: LEVOTHYROXINE SOD 0.075 MG TAB PO SCH (07:30)
[2020-04-01 08:23] VITALS: O2SAT 97
[2020-04-01] MEDS: CEFTRIAXONE/SWI 1gm 1 GM/10 ML SYR IVP SCH (08:27)
[2020-04-01] MEDS: ENOXAPARIN 30 MG/0.3 ML SQ SCH (08:28)
[2020-04-01 08:31] VITALS: BP 138/82
[2020-04-01] MEDS ORDERED: METOPROLOL TAR 50 MG TAB PO SCH (09:00)
[2020-04-01] MEDS ORDERED: MULTIVITAMIN TAB PO SCH (09:00)
[2020-04-01 09:26] VITALS: TEMP 98.7
--- NOTE | 2020-04-01 10:39 | P.DS ---
Admission Date: 03/29/20 Discharge Date: 04/01/20 Primary Care Provider: Dr. Chen Disposition: ROUTINE DISCHARGE Discharge Condition: GOOD Reason for Admission: RUQ pain Consultations: Surgery-Dr. Zimmerman GI-Dr. Loya Nephrology-Dr. Elizondo Cardiology-Dr. Lan Procedures: ABUS: FINDINGS: The liver has an increased echotexture. The liver is enlarged Multiple gallstones. The gallbladder wall is thickened. . The biliary tree is normal caliber. The pancreas is normal in size and echotexture The right kidney measures 11 centimeters with a normal echotexture. The left kidney measures 13 centimeters with a normal echotexture. The spleen measures 14 centimeters. The abdominal aorta and inferior vena cava appear unremarkable IMPRESSION: Increased hepatic echotexture consistent with fatty infiltration. Hepatomegaly Cholelithiasis. Thickened gallbladder wall may indicate cholecystitis Mild splenomegaly MRCP: FINDINGS: Images are degraded as the patient had difficulty suspending respiration. Multiple gallstones. The gallbladder wall is thickened. The biliary tree is normal caliber without a filling defect visualized. Pancreatic duct is normal caliber Small right pleural effusion IMPRESSION: Cholelithiasis. Thickened gallbladder wall probably indicates cholecystitis ECHO: EF 63% LEFT VENTRICULAR WALL MOTION: NORMAL DOPPLER/COLOR FLOW: NORMAL COMMENTS: NORMAL 2D ECHOCARDIOGRAM WITH DOPPLER. NO WALL MOTION ABNORMALITY. NO EFFUSION. Surgery: Laparoscopic cholecystectomy Medical Problem List: Acute cholecystitis with cholelithiasis status post laparoscopic cholecystectomy Prior history of syncopal episode Acute kidney injury likely pre renal azotemia Fatty liver disease Hypertension Hypothyroidism Hyperlipidemia Macrocytic anemia Brief History of Present Illness: 55-year-old male presented to emergency room with right upper quadrant abdominal pain. Patient found to have acute cholecystitis with cholelithiasis. Patient was admitted for further evaluation and treatment. Hospital Course: Patient presented with acute cholecystitis with cholelithiasis. Patient was seen and evaluated by GI and surgery. MRCP was negative for choledocholithiasis. Surgical intervention was required. Laparoscopic cholecystectomy was done. Patient was cleared by surgery. Echocardiogram unremarkable. The patient has done well post surgically. Patient will continue with postop instructions. Prescription for pain medication will be provided by surgery. No heavy lifting, pushing or pulling is recommended. Recommend follow up with surgery within 1 week to follow up this hospitalization and surgery. Patient with history of syncopal episode. Echocardiogram unremarkable. Carotid Doppler showed no acute findings. Patient will follow up with cardiology as an outpatient to further monitor and address. Patient may require Holter monitor. Patient also presented with acute renal injury likely from pre renal azotemia. This has improved with IV fluids. Nephrology was consulted. Recommend no further use of nonsteroidal anti-inflammatories. At discharge will hold his losartan medication. Recommend to recheck lab-CMP within 1 week to monitors progress. Patient may follow up with nephrology as an outpatient to further monitor and address. Patient with hypertension. This has remained stable. As recommended above. Losartan has been discontinued. At discharge he will continue with Norvasc 5 mg daily and metoprolol 50 mg 1 pill twice daily. Recommend to monitor his blood pressure daily. If his blood pressure remains below 120 systolic he may have to hold his blood pressure medication. Recommend to maintain blood pressure less 150/80. Further adjustment in medication can be done by cardiology. Patient will follow up with cardiology to further address. Patient with hypothyroidism. This has remained stable. At discharge patient will continue with levothyroxine 75 mcg daily. Patient with hyperlipidemia. This has remained stable. At discharge patient will continue with Crestor 10 mg daily. Further adjustment can be done by his PCP. Patient found to have microcytic anemia. Etiology unknown. It is recommended the patient see Hematology as an outpatient to further evaluate. Recommend to recheck CBC in 1-2 weeks to monitors progress. Patient found to have fatty liver as noted by surgery. GI was consulted. Hepatitis panel pending at discharge. Education on fatty liver will be provided. Recommend follow up with GI to further monitor and address. Vital Signs/Physical Exam: Temp Pulse Resp BP Pulse Ox 98.7 F 100 H 16 138/82 96 04/01/20 08:00 04/01/20 08:28 04/01/20 08:00 04/01/20 08:28 04/01/20 08:00 General: Alert, In no apparent distress, Oriented x3 HEENT: Atraumatic Neck: Supple Respiratory: Clear to auscultation bilaterally, Normal air movement Cardiovascular: Normal pulses, Regular rate/rhythm Gastrointestinal: Normal bowel sounds, No tenderness, No masses, No rebound, No guarding Musculoskeletal: No erythema, No tenderness, No warmth Integumentary: No tenderness/swelling, No erythema, No warmth, No cyanosis Neurological: Normal speech, Normal strength at 5/5 x4 extr, Normal tone, Normal affect Laboratory Data at Discharge: WBC 6.3 K/uL (4.3-10.9) D 04/01/20 05:18 Hgb 9.4 g/dL (13.6-17.9) L 04/01/20 05:18 Hct 28.2 % (39.6-49.0) L 04/01/20 05:18 Plt Count 201 K/uL (152-406) 04/01/20 05:18 Sodium 138 mmol/L (136-145) 04/01/20 05:18 Potassium 4.3 mmol/L (3.5-5.1) 04/01/20 05:18 BUN 18 mg/dL (7-18) 04/01/20 05:18 Creatinine 1.56 mg/dL (0.55-1.3) H 04/01/20 05:18 Glucose 126 mg/dL (74-106) H 04/01/20 05:18 Phosphorus 2.3 mg/dL (2.5-4.9) L 03/31/20 06:18 Magnesium 1.9 mg/dL (1.8-2.4) 03/31/20 06:18 Total Bilirubin 0.9 mg/dL (0.2-1.0) 04/01/20 05:18 AST 101 U/L (15-37) H 04/01/20 05:18 ALT 52 U/L (12-78) 04/01/20 05:18 Alkaline Phosphatase 151 U/L (45-117) H 04/01/20 05:18 Amylase 30 U/L (25-115) 03/31/20 06:18 Lipase 110 U/L (73-393) 03/31/20 06:18 Home Medications: Amlodipine Besylate [Norvasc] 1 tab PO BEDTIME 03/29/20 Levothyroxine Sodium 1 tab PO DAILY 03/29/20 Loratadine [Claritin*] 1 tab PO DAILY 03/29/20 Metoprolol Tartrate [Lopressor] 0.5 tab PO BID 03/29/20 Multivitamin [Multiple Vitamins] 1 tab PO DAILY 03/29/20 Rosuvastatin [Crestor*] 1 tab PO BEDTIME 03/29/20 Patient Discharge Instructions: 1. Recommend follow up with PCP in 1 week to follow up this hospitalization. 2. Patient presented with acute cholecystitis with cholelithiasis. Patient was seen and evaluated by GI and surgery. MRCP was negative for choledocholithiasis. Surgical intervention was required. Laparoscopic cholecystectomy was done. Patient was cleared by surgery. Echocardiogram unremarkable. The patient has done well post surgically. Patient will continue with postop instructions. Prescription for pain medicatio n will be provided by surgery. No heavy lifting, pushing or pulling is recommended. Recommend follow up with surgery within 1 week to follow up this hospitalization and surgery. Remove outer dressing in am and shower. Keep steri- strips on at all times. 3. Patient with history of syncopal episode. Echocardiogram unremarkable. Carotid Doppler showed no acute findings. Patient will follow up with cardiology as an outpatient to further monitor and address. Patient may require Holter monitor. 4. Patient also presented with acute renal injury likely from pre renal azotemia. This has improved with IV fluids. Nephrology was consulted. Recommend no further use of nonsteroidal anti- inflammatories. At discharge will hold his losartan medication. Recommend to recheck lab-CMP within 1 week to monitors progress. Patient may follow up with nephrology as an outpatient to further monitor and address. 5. Patient with hypertension. This has remained stable. As recommended above. Losartan has been discontinued. At discharge he will continue with Norvasc 5 mg daily and metoprolol 50 mg 1 pill twice daily. Recommend to monitor his blood pressure daily. If his blood pressure remains below 120 systolic he may have to hold his blood pressure medication. Recommend to maintain blood pressure less 150/80. Further adjustment in medication can be done by cardiology. Patient will follow up with cardiology to further address. 6. Patient with hypothyroidism. This has remained stable. At discharge patient will continue with levothyroxine 75 mcg daily. 7. Patient with hyperlipidemia. This has remained stable. At discharge patient will continue with Crestor 10 mg daily. Further adjustment can be done by his PCP. 8. Patient found to have microcytic anemia. Etiology unknown. It is recommended the patient see Hematology as an outpatient to further evaluate. Recommend to recheck CBC in 1-2 weeks to monitors progress. 9. Patient found to have fatty liver as noted by surgery. GI was consulted. Hepatitis panel pending at discharge. Education on fatty liver will be provided. Recommend follow up with GI to further monitor and address. Diet: Low sodium Activity: No lifting more than 10 lbs Followup: Hamilton Zimmerman MD [ACTIVE - CAN ADMIT] - 1 Week Time spent managing pt's care (in minutes): 55
--- NOTE | 2020-04-01 13:36 | PN ---
Date of Progress Note: 04/01/2020 History: Patient was admitted with acute kidney injury secondary to prerenal. Upon arrival to the [facility]ital, creatinine was 3.4 with GFR of 19. After hydration, creatinine down to 1.5, GFR of 47. Pat ient still has decrease intake. No nausea or vomiting. Patient's LFTs still elevated. Hepatitis pa karishma is still pending. Physical Examination: Vital Signs: When I saw the patient, blood pressure 138/82, pulse of 100, afebrile. Patient had goo d urine output of 800. Chest: Clear to auscultation. Heart: S1, S2. Regular. Abdomen: Mild tenderness on the epigastric area. Extremities: No edema. Neurological: Alert and oriented x3. No focal. Laboratory Data: Sodium 138, potassium 4.3, bicarb 24, BUN 18, creatinine down to 1.5, GFR of 46, ca lcium 8.1, albumin 2.7, folate more than 20. H and H 9.4/28.2. Abdominal ultrasound, 10/10 on the k idneys, no hydronephrosis. Current Medications: The patient on is: 1.IV fluid normal saline 150 per hour. 2.Periactin. 3.Metronidazole. 4.Amlodipine. 5.Metoprolol. 6.LR at 150 per hour. 7.Levothyroxine. 8.KCl. Assessment And Plan: 1.Acute kidney injury secondary to prerenal, secondary to gastrointestinal loss. Normal size kidney s. Superimposed with ARB, on the recovery, nonoliguric. I am going to go ahead and discontinue IV f luid for the time being and we will monitor the patient. Patient cleared from the renal standpoint f or discharge planning, to follow up in the office in 2-3 weeks with chemistry. 2.Hypertension, currently controlled optimal with the presence of recent acute kidney injury, I am g oing to be keep holding the losartan for the time being. 3.Elevation of transaminases, possible secondary to fatty liver/hepatitis. We will follow up with morelia zaragoza. 4.Gastroenteritis. Continue symptomatic treatment. Patient is tolerating diet. We will discontinu e IV fluids. 5.hypokalemia, resolved. Discontinue LR. MA/MODL Voice ID: [id number] Report ID: [id number]
--- NOTE | 2020-04-01 20:42 | CON ---
Date of Consultation: 03/30/2020 Reason For Consultation: Cardiac risk assessment prior to gallbladder surgery. History Of Present Illness: This is a 55-year-old male with abdominal pain, has gallbladder disease and scheduled for surgery to be done on Tuesday. I was asked to evaluate the patient's cardiac risk b efore this non-cardiac surgery. Patient has history of hypertension, dyslipidemia, and hypothyroidis m. No other cardiac history. Denies having chest pain very active. His exercise capacity is excell ent. He can climb more than 3 or 4 flight of stairs without chest pain or shortness of breath. Gilbert myke, about a month ago, he had few episodes of syncopal episodes upon rising from siting position and never had any further problems and never had any workup done. Denies having any chest pain or short ness of breath or any cardiac history. Past Medical History: As outlined above in the HPI. Medications: Refer reconciliation sheet for detailed list. Allergies: NO KNOW DRUG ALLERGIES. Social History: Does not smoke or drink. Does not use any drugs. Family History: No premature coronary artery disease or cancer. Review of Systems: All systems reviewed. They were negative except above mentioned in HPI. Physical Examination: Vital Signs: Temperature is 98.2, pulse is 94, breathing at 18, blood pressure 133/80, saturating 96 % on room air. General: Pleasant middle-aged male in no apparent distress. Head and Neck: Pupils are equal and reactive to light. Intact eye movements. No JVD. No cervical lymphadenopathy. Neck is supple. Thyroid is not enlarged. Lungs: Clear to auscultation bilaterally. No rhonchi, rales, or crackles. No accessory muscle use. Heart: Regular rate and rhythm. No extra sounds. Abdomen: Soft, tender in right upper quadrant. No rigidity found. Extremities: No edema, clubbing, or cyanosis. Intact pulses. Skin: No rashes or lesions. Neuro: Alert, awake, oriented x3. No acute focal deficit appreciated. Investigations: Labs were reviewed. Assessment And Plan: 1.Cardiac preop risk assessment. Patient has an excellent exercise capacity. No cardiac history. The only risk factor is hypertension and he claimed having syncopal episodes about a month ago that a ppears to be orthostatic and dehydration related. I recommend to obtain echocardiogram to evaluate t he heart structure by proceeding to surgery. If echocardiogram is normal, no further cardiac workup will be needed and it will put him at low risk for this intraabdominal surgery. 2.Hypertension. Blood pressure is controlled. Thank you for the courtesy of this consultation. /MICHAEL Voice ID: [id number] Report ID: [id number]
[2020-04-01] MEDS ORDERED: ROSUVASTATIN 10 MG TAB PO SCH (21:00)
[2020-04-01] MEDS ORDERED: AMLODIPINE 5 MG TAB PO SCH (21:00)
--- NOTE | 2020-04-01 23:54 | PN ---
Date of Progress Note: 04/01/2020 Mr. Iniguez was seen by Dr. Lujan over the weekend for cardiac clearance for cholecystectomy. Cholecys tectomy was done on 03/31/2020. The patient has acute on chronic kidney injury. He had initially ca me in with syncope. We saw him initially for cardiac clearance. He has had a normal echo. He has h ypertension and hypothyroidism. Postoperatively, there is no evidence of congestive heart failure or arrhythmia. The patient is doing well. I think he has been discharged today. If he has any more s yncopal episode down the road we will see him as an outpatient and have him do an event monitor and a stress test. For now, we will sign off his case. NB/MODL Voice ID: [id number] Report ID: [id number]
[2020-04-02 12:11] LABS: HBsAG Nonreactive (Nonreactive)
== END 2020-04-01 11:17 | disposition home or self-care (01) | DRG 418 ==
LOC: ER 07:06 → ERHOLD 09:16 → 2ND 13:59
PROVIDERS: ADMIT Family Medicine; ATTEND Family Medicine
PROC: 0FT44ZZ Resection of Gallbladder, Percutaneous Endoscopic Approach (ICD-10-PCS; principal; 2020-03-31 12:15)
DX: K80.00 Calculus of gallbladder with acute cholecystitis without obstruction (principal); N17.9 Acute kidney failure, unspecified; K76.0 Fatty (change of) liver, not elsewhere classified; E03.9 Hypothyroidism, unspecified; E78.2 Mixed hyperlipidemia; I12.9 Hypertensive chronic kidney disease with stage 1 through stage 4 chronic kidney disease, or unspecified chronic kidney disease; N18.9 Chronic kidney disease, unspecified; E86.1 Hypovolemia; D50.9 Iron deficiency anemia, unspecified; K52.9 Noninfective gastroenteritis and colitis, unspecified; E87.6 Hypokalemia; D53.1 Other megaloblastic anemias, not elsewhere classified; Z79.890 Hormone replacement therapy; R79.89 Other specified abnormal findings of blood chemistry; Z79.899 Other long term (current) drug therapy
CPT/HCPCS: 36415; 71045; 71250; 74176; 74181; 76700; 80048; 80053; 80074; 80076; 82150; 82248; 82550; 82607; 82746; 83690; 83735; 84100; 85025; 88304; 93005; 93306; 93880; 94640; 94760; 96361; 96365; 96367; 99285; J0696; J0744; J1170; J1650; J2250; J2270; J2405; J2550; J2704; J2710; J3010; J3475; J7030; J7120

== ENCOUNTER 2020-04-03 08:17 | Emergency (ER) | payer OTHER ==
--- NOTE | 2020-04-03 08:58 | ER ---
Nurse's Notes [facility] Name: Koko Iniguez Age: 55 yrs Sex: Male : 1965 Arrival Date: 04/03/2020 Time: 08:18 Bed 4 Private MD: Alexandre Downs Diagnosis: Post Op seroma drainiage from umbilical surgical site Presentation: 04/03 08:29 Chief complaint: Patient states: had gallbladder removed [address] Zimmerman, one iw of the surgical sites started leaking fluid last night around midnight. Coronavirus screen: Proceed with normal triage. Patient denies a cough. Patient denies shortness of breath or difficulty breathing. Patient denies measured and/or subjective temperature greater than 100.4F prior to today's visit. Patient denies travel on a cruise ship or to a country the [facility] currently lists as an affected area. Patient denies contact with known and/or suspected case of COVID-19. Ebola Screen: Patient negative for fever greater than or equal to 101.5 degrees Fahrenheit, and additional compatible Ebola Virus Disease symptoms Patient denies exposure to infectious person. Patient denies travel to an Ebola-affected area in the 21 days before illness onset. No symptoms or risks identified at this time. Initial Sepsis Screen: Does the patient meet any 2 criteria? No. Patient's initial sepsis screen is negative. Does the patient have a suspected source of infection? No. Patient's initial sepsis screen is negative. Risk Assessment: Do you want to hurt yourself or someone else? Patient reports no desire to harm self or others. Onset of symptoms was April 03, 2020. 08:29 Method Of Arrival: Ambulatory iw 08:29 Acuity: VIRGILIO 3 iw Triage Assessment: 08:30 General: Appears in no apparent distress. comfortable, Behavior is calm, cooperative, bp appropriate for age. Pain: Denies pain. EENT: No deficits noted. Neuro: No deficits noted. Cardiovascular: No deficits noted. 08:30 Respiratory: No deficits noted. GI: No signs and/or symptoms were reported involving bp the gastrointestinal system. : No signs and/or symptoms were reported regarding the genitourinary system. Derm: No deficits noted. Musculoskeletal: No signs and/or symptoms reported regarding the musculoskeletal system. Injury Description: [employer] WOUNDS NOTED TO ABD S/P LAP MARCELLE. Historical: - Allergies: 08:33 PENICILLINS; iw - PMHx: 08:33 Hypertension; Thyroid problem; Hyperlipidemia; iw - PSHx: 08:33 Cholecystectomy; iw - Immunization history:: Adult Immunizations. - Social history:: Smoking status: Patient denies any tobacco usage or history of. Screenin:44 Abuse screen: Denies threats or abuse. Denies injuries from another. Nutritional bp screening: No deficits noted. Tuberculosis screening: No symptoms or risk factors identified. Fall Risk None identified. Assessment: 08:30 General: SEE TRIAGE NOTE. bp 09:09 Reassessment: PT D/C HOME AMBULATORY, DX WITH SEROMA. bp Vital Signs: 08:29 BP 153 / 101; Pulse 92; Resp 16; Temp 97.9; Pulse Ox 98% on R/A; iw 09:02 BP 135 / 94; Pulse 83; Resp 16; Temp 98; Pulse Ox 100% ; bp ED Course: 08:18 Patient arrived in ED. ag5 08:19 Yaya Mcknight MD is Private Physician. ag5 08:19 Alexandre Downs MD is Private Physician. ag5 08:22 Chris Craig MD is Attending Physician. kdr 08:31 Triage completed. iw 08:33 Arm band placed on. iw 08:39 Luiz Donahue, ELLE is Primary Nurse. bp 08:44 Patient has correct armband on for positive identification. Bed in low position. Call bp light in reach. Side rails up X2. 08:55 Hamilton Zimmerman MD is Referral Physician. kdr 09:01 Patient did not have IV access during this emergency room visit. Wound care: to bp puncture located on abdomen was dressed with 4X4s, Patient tolerated well. 09:09 No provider procedures requiring assistance completed. bp Administered Medications: No medications were administered Outcome: 08:57 Discharge ordered by . kdr 09:09 Discharged to home ambulatory. bp 09:09 Condition: stable 09:09 Discharge instructions given to patient, Instructed on discharge instructions, follow up and referral plans. wound care, Demonstrated understanding of instructions, follow-up care, wound care. 09:10 Patient left the ED. bp Signatures: Chris Craig MD MD kdr Taylor Jauregui RN RN iw Luiz Donahue RN RN Sujey Salas ag5 Corrections: (The following items were deleted from the chart) 08:43 08:30 General: Appears bp bp
--- NOTE | 2020-04-03 08:58 | EDPHYS ---
Physician Documentation [facility] Name: Koko Iniguez Age: 55 yrs Sex: Male : 1965 Arrival Date: 04/03/2020 Time: 08:18 Bed 4 Private MD: Alexandre Downs ED Physician Chris Craig HPI: 04/03 08:45 This 55 yrs old Male presents to ER via Ambulatory with complaints of Post kdr Surgical Problem. 08:45 Since surgery, the patient has been having intermittent drainage from the umbilical kdr surgical site. Last night, it seemed to be worse. He denies any fever, increased pain or other associated s/s. He does have diffuse abdominal pain but this is not worsening since the surgery. Onset: The symptoms/episode began/occurred gradually, 4 day(s) ago. Severity of symptoms: At their worst the symptoms were mild in the emergency department the symptoms are unchanged. The patient has not experienced similar symptoms in the past. The patient has been recently been admitted at [facility], by Dr. Zimmerman. Historical: - Allergies: 08:33 PENICILLINS; iw - PMHx: 08:33 Hypertension; Thyroid problem; Hyperlipidemia; iw - PSHx: 08:33 Cholecystectomy; iw - Immunization history:: Adult Immunizations. - Social history:: Smoking status: Patient denies any tobacco usage or history of. ROS: 08:45 Constitutional: Negative for fever, chills, and weight loss, Eyes: Negative for injury, kdr pain, redness, and discharge, Neck: Negative for injury, pain, and swelling, Cardiovascular: Negative for chest pain, palpitations, and edema, Respiratory: Negative for shortness of breath, cough, wheezing, and pleuritic chest pain, Back: Negative for injury and pain, : Negative for injury, bleeding, discharge, and swelling, MS/Extremity: Negative for injury and deformity. 08:45 Abdomen/GI: Positive for abdominal pain, Several operative sites noted corresponding to surgical procedure performed.. Exam: 08:45 Constitutional: This is a well developed, well nourished patient who is awake, alert, kdr and in no acute distress. 08:45 Abdomen/GI: Inspection: obese Bowel sounds: diminished, in all quadrants, Palpation: soft, mild abdominal tenderness, in all quadrants, There is small amount of clear gisella drainage from the umbilical instrument site. No evidence of surrounding erythema/cellulitis or purulent drainage. All other sites are dry. The patient has minimal diffuse abdominal pain that is not worsening but appears to be following typical post op resolution pattern. Vital Signs: 08:29 BP 153 / 101; Pulse 92; Resp 16; Temp 97.9; Pulse Ox 98% on R/A; iw 09:02 BP 135 / 94; Pulse 83; Resp 16; Temp 98; Pulse Ox 100% ; bp MDM: 08:45 Data reviewed: vital signs, nurses notes. Counseling: I had a detailed discussion with kdr the patient and/or guardian regarding: the historical points, exam findings, and any diagnostic results supporting the discharge/admit diagnosis, the need for outpatient follow up. Physician consultation: Hamilton Zimmerman MD was called at 08:54, was contacted at 08:54, regarding consult, patient's condition, need to evaluate the patient as soon as possible, outpatient follow-up, and will see patient in office, later today. 08:57 Patient medically screened. kdr 04/03 08:45 Order name: [facility]. Order: Re-dress surgical sites with extra 4x4 at umbilicus; Complete kdr Time: 09:01 Administered Medications: No medications were administered Disposition: 04/03/20 08:57 Discharged to Home. Impression: Post Op seroma drainiage from umbilical surgical site. - Condition is Stable. - Discharge Instructions: Seroma. - Medication Reconciliation Form, Thank You Letter form. - Follow up: Hamilton Zimmerman MD; When: Today; Reason: Further diagnostic work-up, Recheck today's complaints, Continuance of care, Re-evaluation by your physician. - Problem is an ongoing problem. - Symptoms have improved. - Notes: Call Dr. Zimmerman office upon discharge to arrange an appointment later today. Signatures: Chris Craig MD MD kdr Taylor Jauregui, RN RN iw Luiz Donahue RN RN bp Corrections: (The following items were deleted from the chart) 09:10 08:57 04/03/2020 08:57 Discharged to Home. Impression: Post Op seroma drainiage from bp umbilical surgical site. Condition is Stable. Forms are Medication Reconciliation Form, Thank You Letter, Antibiotic Education, Prescription Opioid Use. Follow up: Dr. Hamilton Zimmerman; When: Today; Reason: Further diagnostic work-up, Recheck today's complaints, Continuance of care, Re-evaluation by your physician. Problem is an ongoing problem. Symptoms have improved. kdr
[2020-04-03 21:27] VITALS: BP 135/94; TEMP 98; O2SAT 100
== END 2020-04-03 09:10 | disposition home or self-care (01) ==
LOC: ER 08:17
DX: K91.872 Postprocedural seroma of a digestive system organ or structure following a digestive system procedure (principal); I10 Essential (primary) hypertension; Z88.0 Allergy status to penicillin; Z90.49 Acquired absence of other specified parts of digestive tract
CPT/HCPCS: 99283

== ENCOUNTER 2020-04-20 16:57 | Emergency (ER) | payer OTHER ==
[2020-04-20 18:34] LABS: Basophils % 0.7 % (0-1.3); Lymphocytes % 9.5 % (15.3-44.8); MPV 9.3 fL (7.6-11.3); RBC Red Blood Cell Count 3.55 M/uL (4.33-5.43)
[2020-04-20 18:47] LABS: Protime INR 1.32
[2020-04-20 18:54] LABS: ALT/SGPT 38 U/L (12-78); AST/SGOT 90 U/L (15-37); Albumin 2.7 g/dL (3.4-5.0); Alkaline Phosphatase 292 U/L (45-117); BUN Blood Urea Nitrogen 11 mg/dL (7-18); Bicarbonate 27 mmol/L (21-32); Bilirubin Direct 0.3 mg/dL (0-0.2); Bilirubin Total 0.6 mg/dL (0.2-1.0); Glucose Level 108 mg/dL (74-106); Lipase 223 U/L (73-393); Potassium 3.9 mmol/L (3.5-5.1); Sodium Level 136 mmol/L (136-145)
[2020-04-20 20:08] LABS: Urine Blood 3+ (NEG); Urine Glucose NEGATIVE (NEG); Urine Protein 2+ (NEG); Urine Specific Gravity >1.030 (1.005-1.030); Urine pH 5.5 (5.0-7.0)
--- NOTE | 2020-04-20 20:30 | RAD REPORT ---
EXAM DESCRIPTION: CT - Abdomen Pelvis W Contrast - 04/20/2020 8:18 pm CLINICAL HISTORY: ABD PAIN, abdominal bloating, diarrhea, cholecystectomy 3 weeks earlier COMPARISON: Abdomen Pelvis W Contrast dated 04/09/2020; Cholangiogram dated 03/31/2020 TECHNIQUE: Biphasic, helical CT imaging of the abdomen and pelvis was performed following 100 ml non -ionic IV contrast. No oral contrast. All CT scans are performed using dose optimization technique as appropriate and may include automated exposure control or mA/KV adjustment according to patient size. FINDINGS: No suspicious findings in the lung bases. No focal liver lesion. Portal vein shows normal enhancement. Pancreas and spleen show no suspicious f indings. Patient has accessory splenic nodules along the anterior margin. Cholecystectomy clips are present. Small amount of fluid is present in the gallbladder fossa. A gall bladder fossa fluid is similar to comparison. Symmetric renal function is seen with no hydronephrosis or suspicious renal mass. No pyelonephritis o r acute parenchymal process. Upper pole right renal cyst is unchanged. Urinary bladder is fully contr acted limiting assessment. No adrenal abnormalities. No gastric dilatation or wall thickening. No dilated large or small bowel loops. No appendicitis find ings. Diverticulosis is mild without diverticulitis. No free air or pneumatosis. Small amount of stranding is present in the fatty tissues along the rig ht colic gutter and lateral margin of the liver. A small to moderate amount of ascites present. Volum e of intraperitoneal fluid has increased since April 09. No hernia, mass or bulky lymphadenopathy. No suspicious bony findings. IMPRESSION: A small to moderate amount of ascites or intraperitoneal fluid is present increased from the April 09 examination. A small loculated collection of fluid is present lateral abdomen just infe rior to the liver. A bile leak cannot be excluded given the history of recent cholecystectomy. Liver is not grossly abno rmal. No additional findings the would explain a source for increased intraperitoneal fluid. No acute GI or finding.
--- NOTE | 2020-04-20 21:29 | ER ---
Nurse's Notes [facility] Name: Koko Iniguez Age: 55 yrs Sex: Male : 1965 Arrival Date: 04/20/2020 Time: 16:59 Bed 15 Private MD: Diagnosis: Ascites;Upper abdominal pain, unspecified Presentation: 04/20 17:13 Chief complaint: Patient states: Abdominal bloating for 3 days. "Upset stomach" today ll1 with 1 diarrhea stool. No fever. Cholecystectomy 3 weeks ago here with Dr. Zimmerman. Coronavirus screen: Proceed with normal triage. Patient denies a cough. Patient denies shortness of breath or difficulty breathing. Patient denies measured and/or subjective temperature greater than 100.4F prior to today's visit. Patient denies travel on a cruise ship or to a country the [facility] currently lists as an affected area. Patient denies contact with known and/or suspected case of COVID-19. Ebola Screen: Patient denies travel to an Ebola-affected area in the 21 days before illness onset. Initial Sepsis Screen: Does the patient meet any 2 criteria? HR > 90 bpm. No. Patient's initial sepsis screen is negative. Does the patient have a suspected source of infection? No. Patient's initial sepsis screen is negative. Risk Assessment: Do you want to hurt yourself or someone else? Patient reports no desire to harm self or others. Onset of symptoms was April 18, 2020. 17:13 Method Of Arrival: Ambulatory 1 17:13 Acuity: VIRGILIO 3 ll1 Historical: - Allergies: 17:16 PENICILLINS; ll1 - PMHx: 17:16 Hyperlipidemia; Hypertension; Thyroid problem; ll1 - PSHx: 17:16 Cholecystectomy; ll1 - Immunization history:: Adult Immunizations up to date. - Social history:: Smoking status: Patient denies any tobacco usage or history of. Patient/guardian denies using alcohol, street drugs, tobacco products. Screenin:00 Abuse screen: Denies threats or abuse. Nutritional screening: No deficits noted. vc Tuberculosis screening: No symptoms or risk factors identified. Fall Risk None identified. Assessment: 18:00 General: Appears in no apparent distress. uncomfortable, Behavior is calm, cooperative, vc appropriate for age. Pain: Complains of pain in abdomen Pain currently is 2 out of 10 on a pain scale. Neuro: Level of Consciousness is awake, alert, obeys commands, Oriented to person, place, time, situation, Appropriate for age. Cardiovascular: Capillary refill < 3 seconds Patient's skin is warm and dry. Respiratory: Airway is patent Respiratory effort is even, unlabored, Respiratory pattern is regular, symmetrical. GI: Bowel sounds present X 4 quads. Abdomen is tender to palpation Reports bloating, diarrhea, Patient currently denies nausea. : Reports inability to void, Denies burning with urination. EENT: No signs and/or symptoms were reported regarding the EENT system. Derm: Skin is intact, is healthy with good turgor, Skin temperature is warm. Musculoskeletal: Circulation, motion, and sensation intact. Range of motion: intact in all extremities. 18:30 Reassessment: Patient refuses naidu, he states "I hurt for several days after the last vc naidu I had." MD notified. 18:45 Reassessment: Patient agrees to naidu placement after speaking with Dr. sauer 18:45 Reassessment: Attempted to place naidu with resistance, patient states that he decided vc he doesn't want it anymore. MD notified. 19:00 Reassessment: Patient appears in no apparent distress at this time. Patient and/or vc family updated on plan of care and expected duration. Pain level reassessed. Patient is alert, oriented x 3, equal unlabored respirations, skin warm/dry/pink. 20:00 Reassessment: Patient appears in no apparent distress at this time. Patient and/or vc family updated on plan of care and expected duration. Pain level reassessed. Patient is alert, oriented x 3, equal unlabored respirations, skin warm/dry/pink. 21:00 Reassessment: Patient appears in no apparent distress at this time. Patient and/or vc family updated on plan of care and expected duration. Pain level reassessed. Patient is alert, oriented x 3, equal unlabored respirations, skin warm/dry/pink. Patient standing up in beside bed, no complaints at this time. Patient denies pain at this time. Vital Signs: 17:13 BP 122 / 79; Pulse 91; Resp 18; Temp 98.3; Pulse Ox 97% ; Pain 2/10; ll1 ED Course: 16:59 Patient arrived in ED. bp1 17:15 Triage completed. ll1 17:16 Arm band placed on Patient notified of wait time. ll1 17:58 Andriy Foley MD is Attending Physician. 7 18:00 Patient has correct armband on for positive identification. Pulse ox on. NIBP on. vc 19:03 Izabela Rocha, RN is Primary Nurse. vc 19:41 Attending Physician role handed off by Andriy Foley MD ms3 19:41 Cruzito Rebolledo DO is Attending Physician. ms3 20:18 CT Abd/Pelvis - IV Contrast Only In Process Unspecified. EDMS 21:21 No provider procedures requiring assistance completed. vc Administered Medications: No medications were administered Outcome: 21:28 ER care complete, transfer ordered by . ms3 22:31 Patient left the ED. mw2 Signatures: Dispatcher [employer] EDNJ Cem Oakes mw2 Izabela Rocha, Hemalatha Díaz RN, vc, RN RN 1 Cruzito Rebolledo DO DO ms3 [facility] Adnriy Foley MD MD [facility]
--- NOTE | 2020-04-20 21:29 | EDPHYS ---
Physician Documentation [facility] Name: Koko Iniguez Age: 55 yrs Sex: Male : 1965 Arrival Date: 04/20/2020 Time: 16:59 Bed 15 Private MD: ED Physician Cruzito Rebolledo HPI: 04/20 18:15 This 55 yrs old Male presents to ER via Ambulatory with complaints of mh7 Abdominal Swelling. 18:15 The patient presents with abdominal distention that is diffuse. Onset: The mh7 symptoms/episode began/occurred 2 day(s) ago. The symptoms do not radiate. Associated signs and symptoms: Pertinent negatives: nausea, vomiting, and diarrhea, nausea and vomiting, anorexia, blood in stools, chest pain, constipation, diarrhea, dysuria, fever, headache, hematuria, nausea, palpitations, shortness of breath, testicular pain, vomiting, vomiting blood. The symptoms are described as no pain. Modifying factors: The symptoms are alleviated by nothing, the symptoms are aggravated by nothing. Historical: - Allergies: 17:16 PENICILLINS; ll1 - PMHx: 17:16 Hyperlipidemia; Hypertension; Thyroid problem; ll1 - PSHx: 17:16 Cholecystectomy; ll1 - Immunization history:: Adult Immunizations up to date. - Social history:: Smoking status: Patient denies any tobacco usage or history of. Patient/guardian denies using alcohol, street drugs, tobacco products. ROS: 18:15 Constitutional: Negative for fever, chills, and weight loss, Eyes: Negative for injury, mh7 pain, redness, and discharge, ENT: Negative for injury, pain, and discharge, Neck: Negative for injury, pain, and swelling, Cardiovascular: Negative for chest pain, palpitations, and edema, Respiratory: Negative for shortness of breath, cough, wheezing, and pleuritic chest pain, Back: Negative for injury and pain, : Negative for injury, bleeding, discharge, and swelling, MS/Extremity: Negative for injury and deformity, Skin: Negative for injury, rash, and discoloration, Neuro: Negative for headache, weakness, numbness, tingling, and seizure, Psych: Negative for depression, anxiety, suicide ideation, homicidal ideation, and hallucinations, Allergy/Immunology: Negative for hives, rash, and allergies, Endocrine: Negative for neck swelling, polydipsia, polyuria, polyphagia, and marked weight changes, Hematologic/Lymphatic: Negative for swollen nodes, abnormal bleeding, and unusual bruising. Exam: 18:15 Constitutional: This is a well developed, well nourished patient who is awake, alert, mh7 and in no acute distress. Head/Face: Normocephalic, atraumatic. Eyes: Pupils equal round and reactive to light, extra-ocular motions intact. Lids and lashes normal. Conjunctiva and sclera are non-icteric and not injected. Cornea within normal limits. Periorbital areas with no swelling, redness, or edema. Neck: Trachea midline, no thyromegaly or masses palpated, and no cervical lymphadenopathy. Supple, full range of motion without nuchal rigidity, or vertebral point tenderness. No Meningismus. Chest/axilla: Normal chest wall appearance and motion. Nontender with no deformity. No lesions are appreciated. Cardiovascular: Regular rate and rhythm with a normal S1 and S2. No gallops, murmurs, or rubs. Normal PMI, no JVD. No pulse deficits. Respiratory: Lungs have equal breath sounds bilaterally, clear to auscultation and percussion. No rales, rhonchi or wheezes noted. No increased work of breathing, no retractions or nasal flaring. 18:15 Back: No spinal tenderness. No costovertebral tenderness. Full range of motion. Skin: Warm, dry with normal turgor. Normal color with no rashes, no lesions, and no evidence of cellulitis. MS/ Extremity: Pulses equal, no cyanosis. Neurovascular intact. Full, normal range of motion. Neuro: Awake and alert, GCS 15, oriented to person, place, time, and situation. Cranial nerves II-XII grossly intact. Motor strength 5/5 in all extremities. Sensory grossly intact. Cerebellar exam normal. Normal gait. Psych: Awake, alert, with orientation to person, place and time. Behavior, mood, and affect are within normal limits. 18:15 Abdomen/GI: Inspection: distension, that is mild, Bowel sounds: normal, in all quadrants, Palpation: abdomen is soft and non-tender, in all quadrants, Rectal exam: the exam is deferred, because of patient request, Indicators: McBurney's point is not tender, Killian's sign is negative, Rovsing's sign is negative, Obturator sign is negative, Psoas sign is negative, Liver: no appreciated palpable abnormalities, Hernia: not appreciated. Vital Signs: 17:13 BP 122 / 79; Pulse 91; Resp 18; Temp 98.3; Pulse Ox 97% ; Pain 2/10; ll1 MDM: 18:11 Patient medically screened. [facility] 19:00 Transition of care: Care assumed from Andriy Foley MD. ms3 19:00 ED course: Discussed case with Dr Zimmerman and pt will need transfer due to GI services ms3 not being available at [facility]. Discussed case with Dr Purvis, GI, at [facility]. Recommends calling surgery for transfer.. 21:26 Data reviewed: vital signs, nurses notes, lab test result(s), radiologic studies. ms3 Counseling: I had a detailed discussion with the patient and/or guardian regarding: the historical points, exam findings, and any diagnostic results supporting the discharge/admit diagnosis, lab results, radiology results, the need to transfer to another facility, [facility] does not immediately have the required specialist. ED course: Discussed case with Dr Armijo and he accepts pt at [facility].. 04/20 18:13 Order name: CBC with Diff; Complete Time: 19:41 [facility] 04/20 18:13 Order name: Basic Metabolic Panel; Complete Time: 19:41 [facility] 04/20 18:13 Order name: LFT's; Complete Time: 19:41 [facility] 04/20 18:13 Order name: Protime (+inr); Complete Time: 19:41 [facility] 04/20 18:13 Order name: Ptt, Activated; Complete Time: 19:41 [facility] 04/20 18:13 Order name: Lipase; Complete Time: 19:41 [facility] 04/20 18:13 Order name: Saline Lock; Complete Time: 19:42 [facility] 04/20 18:13 Order name: Urine Dipstick-Ancillary (obtain specimen); Complete Time: 19:42 [facility] 04/20 19:43 Order name: CT Abd/Pelvis - IV Contrast Only; Complete Time: 20:36 [facility] 04/20 19:44 Order name: Urine Dipstick--Ancillary (enter results); Complete Time: 20:09 ds4 Administered Medications: No medications were administered Disposition: 04/20/20 21:28 Transfer ordered to [facility]. Diagnosis are Ascites, Upper abdominal pain, unspecified. - Reason for transfer: Higher level of care. - Accepting physician is Zofia. - Condition is Stable. - Problem is new. - Symptoms are unchanged. Signatures: Dispatcher [employer] EDMS Ronak Mckeon PA PA jmm [place], MyKena mw2 Izabela Rocha RN RN Hemalatha Matthews RN RN ll1 Cruzito Rebolledo DO DO ms3 Andriy Foley MD MD mh7 Corrections: (The following items were deleted from the chart) 22:31 21:28 04/20/2020 21:28 Transfer ordered to [facility]. mw2 Diagnosis is Ascites; Upper abdominal pain, unspecified. Reason for transfer: Higher level of care. Accepting physician is Zofia. Condition is Stable. Problem is new. Symptoms are unchanged. ms3
[2020-04-20 22:46] VITALS: BP 122/79; TEMP 98.3; O2SAT 97
== END 2020-04-20 22:31 | disposition short-term general hospital (02) ==
LOC: ER 16:57
DX: R18.8 Other ascites (principal); Z88.0 Allergy status to penicillin
CPT/HCPCS: 85025; 80048; 36415; 85610; 80076; 85730; 81003; 83690; 74177; 99285; Q9967

== ENCOUNTER 2020-12-09 18:19 | Emergency (ER) | payer OTHER ==
--- OUTSIDE RECORDS SUMMARY | 2020-12-09 18:22 | XMS REPORT | Clinical Summary ---
:1965 Author Organization [facility] Address [address] [place] [address] Care Team Providers Name Role Phone Unavailable Primary Care Provider Unavailable Allergies Active Allergy Reactions Severity Noted Date Comments Penicillins Other (See Comments) Medium 04/21/2020 Medications Medication Sig Dispensed Refills Start Date End Date Status amLODIPine Take 5 mg by 0 Active (NORVASC) 5 MG mouth tabletIndications: nightly. hypertension rosuvastatin Take 10 mg 0 Active (CRESTOR) 10 MG by mouth tabletIndications: nightly. hyperlipidemia metoprolol tartrate Take 100 mg by mouth 2 (two) times daily 1/2 tab i n AM 0 Active (LOPRESSOR) 100 MG 1/2 tab at HS . tabletIndications: hypertension levothyroxine Take 75 mcg 0 Acti ve (SYNTHROID, by mouth LEVOTHROID) 75 MCG Every tabletIndications: morning on hypothyroidism an empty stomach. ciprofloxacin HCl Take 500 mg 0 Discontinued (CIPRO) 500 MG by mouth 2 0 (Sto p Taking at tablet (two) times Discharg e) daily. tamsulosin (FLOMAX) Take 1 30 capsule 0 04/22/2020 04/23/20 2 Discontinued 0.4 mg Cap 24 hr capsule (0.4 0 (Reorder) capsule mg total) by mouth daily for 30 days. tamsulosin (FLOMAX) Take 1 30 capsule 2 04/23/2020 05/23/20 2 0.4 mg Cap 24 hr capsule (0.4 0 capsule mg total) by mouth daily for 30 days. Active Problems Problem Noted Date Biliary anastomotic leak 04/21/2020 Encounters Date Type Specialty Care Team Description 04/21/2020 Surgery Gastroenterology Freddie Rojas, ERCP,TIFFANIE IARY STENT 04/21/2020 Anesthesia Event Gastroenterology Watters, MD Kiran Bishop, Cherelle Wise, [employer] 04/21/2020 Travel 04/20/2020 - Hospital General Internal Zofia, Serge, Biliary 04/23/2020 Encounter Medicine MD remedios headley after 12/09/2019 Social History Tobacco Use Types Packs/Day Years Used Date Never Smoker Smokeless Tobacco: Never Used Alcohol Use Drinks/Week oz/Week Comments No Alcohol Habits Answer Date Recorded How often do you have a drink containing alcohol? Never 04/21/2020 How many drinks containing alcohol do you have on a typical Not asked day when you are drinking? How often do you have six or more drinks on one occasion? No t asked Sex Assigned at Date Recorded Not on file Last Filed Vital Signs Vital Sign Reading Time Taken Comments Blood Pressure 123/76 04/23/2020 3:50 PM CDT Pulse 78 04/23/2020 3:50 PM CDT Temperature 36.6 C (97.8 F) 04/23/2020 3:50 PM CDT Respiratory Rate 16 04/23/2020 3:50 PM CDT Oxygen Saturation 100% 04/23/2020 3:50 PM CDT Inhaled Oxygen Concentration - - Weight 103.4 kg (227 lb 15.3 oz) 04/21/2020 12:26 AM CDT Height 177.8 cm (5' 10") 04/21/2020 12:26 AM CDT Body Mass Index 32.71 04/21/2020 12:26 AM CDT Plan of Treatment Health Maintenance Due Date Last Done Comments COLON CANCER SCREENING COLONOSCOPY 1965 LIPID PANEL 2002 INFLUENZA VACCINE (#1) 2020 DEPRESSION SCREENING (12+) 11/28/2020 Implants Implanted Type Area Contour Stitcher Device Shelf Model / Identifier Expiration Date Ser ial / Lot Stent Bili Duodenal [id number] - [id number] IMPLANTS JEFFRY STON SCI:ENDO [id number] / Implanted: Qty: 1 on 04/21/2020 by Freddie Brennan MD at [facility] / Procedures Procedure Name Priority Date/Time Associated Comments Diagnosis US PARACENTESIS Routine 04/23/2020 2:47 Results for this PM CDT procedure are i n the results section. CBC W/PLT COUNT & Routine 04/23/2020 10:19 Result s for this AUTO DIFFERENTIAL AM CDT procedure are in the results section. PT/APTT Routine 04/23/2020 10:19 Results for this AM CDT procedure are i n the results section. CBC W/PLT COUNT & Routine 04/23/2020 10:19 Result s for this AUTO DIFFERENTIAL AM CDT procedure are in the results section. BASIC METABOLIC PANEL Routine 04/23/2020 4:23 Re sults for this (7) AM CDT procedure are i n the results section. CT ABDOMEN/PELVIS STAT 04/22/2020 5:51 Result s for this WITH IV CONTRAST PM CDT procedure a re in the results section. VANCOMYCIN LEVEL, Timed 04/22/2020 1:55 Result s for this TROUGH PM CDT procedure are i n the results section. HEPATIC FUNCTION Routine 04/22/2020 4:15 Results for this PANEL AM CDT procedure are i n the results section. PHOSPHORUS Routine 04/22/2020 4:15 Results for this AM CDT procedure are i n the results section. MAGNESIUM Routine 04/22/2020 4:15 Results for this AM CDT procedure are i n the results section. PT/APTT Routine 04/22/2020 4:15 Results for this AM CDT procedure are i n the results section. BASIC METABOLIC PANEL Routine 04/22/2020 4:15 Re sults for this (7) AM CDT procedure are i n the results section. FL ERCP Routine 04/21/2020 1:15 Results for this PM CDT procedure are i n the results section. REPORT OF PROCEDURE - 04/21/2020 1:14 ENDOSCOPY URL PM CDT PROCEDURE W/ C-ARM 04/21/2020 1:00 Bile leak PM CDT ERCP,BILIARY STENT 04/21/2020 1:00 Bile leak PM CDT CBC W/PLT COUNT & Routine 04/21/2020 4:29 Result s for this AUTO DIFFERENTIAL AM CDT procedure are in the results section. CBC W/PLT COUNT & Routine 04/21/2020 4:29 Result s for this AUTO DIFFERENTIAL AM CDT procedure are in the results section. HEPATIC FUNCTION Routine 04/21/2020 4:29 Results for this PANEL AM CDT procedure are i n the results section. PHOSPHORUS Routine 04/21/2020 4:29 Results for this AM CDT procedure are i n the results section. MAGNESIUM Routine 04/21/2020 4:29 Results for this AM CDT procedure are i n the results section. PT/APTT Routine 04/21/2020 4:29 Results for this AM CDT procedure are i n the results section. BASIC METABOLIC PANEL Routine 04/21/2020 4:29 Re sults for this (7) AM CDT procedure are i n the results section. after 12/09/2019 Results US paracentesis (04/23/2020 2:47 PM CDT) Specimen Narrative Performed At FINAL REPORT [facility] Ultrasound guided paracentesis Clinical History: Ascites. Sedation: None. Cotton Machine Operator: Audrey Becerra PA-C Supervising Physician: Kvng Stevenson MD Straightedge Machine Operator Helper: None. Estimated Blood Loss: < 1 mL. Specimen: 5100 mL of clear yellow fluid, samples sent to laboratory. Technique: Informed consent was obtain ed. The risks of pain, bleeding, infection, bowel perforation, injury to adjacent structures, and adverse medication react ions were discussed with the patient. After informed consent was o btained, the patient's abdomen was scanned. The right lower quadrant of the abdomen was selected for paracentesis. After the largest fl uid pocket area was marked, and the anterior abdominal wall was eval uated with color Doppler to exclude presence of blood vessels betina sing the area, the skin was prepped and draped in the usual sterile manner. After local anesthesia was achieved with lidocaine, a 5 Malaysian one-step catheter was advanced into the peritoneal cavity under ultrasound guidance. After completion of drainage, the cathet er was removed. There was no evidence of complication. Impression: Successful ultrasound guided paracentesi s. Signed: Kvng Stevenson MD Report Verified Date/Time: 04/25/2020 09:48:02 Reading Location: [facility] [id number] [facility] Reading Room Procedure Note Interface, External Ris In - 04/25/2020 9:50 AM CDT FINAL REPORT Ultrasound guided paracentesis Clinical History: Ascites. Sedation: None. Cotton Machine Operator: Audrey Becerra PA-C Supervising Physician: Kvng Stevenson MD Straightedge Machine Operator Helper: None. Estimated Blood Loss: < 1 mL. Specimen: 5100 mL of clear yellow fluid, samples sent to laboratory. Technique: Informed consent was obtaine d. The risks of pain, bleeding, infection, bowel perforation, injury to adjacent structures, and adverse medication react ions were discussed with the patient. After informed consent was ob tained, the patient's abdomen was scanned. The right lower quadrant o f the abdomen was selected for paracentesis. After the largest flu id pocket area was marked, and the anterior abdominal wall was eval uated with color Doppler to exclude presence of blood vessels betina sing the area, the skin was prepped and draped in the usual sterile manner. After local anesthesia was achieved with lidocaine, a 5 Malaysian one-step catheter was advanced into the peritoneal cavity under ultrasound guidance. After completion of drainage, the cathet er was removed. There was no evidence of complication. Impression: Successful ultrasound guided paracentesi s. Signed: Kvng Stevenson MD Report Verified Date/Time: 04/25/2020 0 9:48:02 Reading Location: [facility] [id number] [facility] Reading Room Performing Organization Address City/State/[facility] Phone Number [facility] PT/aPTT (04/23/2020 10:19 AM CDT)Only the most recent of3 resultswithin the time period is included. Pathologist Sig nature Protime 16.8 (H) 11.9 - 14.2 seconds [facility] INR 1.4 <=5.9 [facility] PTT 43.8 (H) 22.5 - 36.0 seconds [facility] Specimen Blood Narrative Performed At Effective 04/25/2019: PT Reference Range [facility] Change New: 11.9-14.2 Previous: 11.7-14.7 RECOMMENDED COUMADIN/WARFARIN INR THERAPY RANGES STANDARD DOSE: 2.0-3.0 Includes: PROPHYLAXIS for venous thrombosis, systemic embolization; TREATMENT for venous thrombosis and/or pulmonary embolus. HIGH RISK: Target INR is 2.5-3.5 for patients wiht mechanical heart valves. Performing Organization Address City/State/Zipcode Phone Number [facility] [address] [place] [address] CENTER CBC with platelet count + automated diff (04/23/2020 10:19 AM CDT)Only the most recent of2 resultswithin the time period is included. Pathologist Sig nature WBC 8.0 3.5 - 10.5 [facility] K/L [facility] RBC 3.17 (L) 4.63 - 6.08 [facility] M/L [facility] Hemoglobin 10.4 (L) 13.7 - 17.5 [facility] GM/DL [facility] Hematocrit 32.4 (L) 40.1 - 51.0 % [facility] MCV 102.2 (H) 79.0 - 92.2 fL [facility] MCH 32.8 (H) 25.7 - 32.2 pg [facility] MCHC 32.1 (L) 32.3 - 36.5 [facility] GM/DL [facility] RDW 14.0 11.6 - 14.4 % [facility] Platelets 212 150 - 450 K/CU [facility] MPV 10.8 9.4 - 12.4 fL [facility] nRBC 0 0 - 0 /100 WBC [facility] % Neutros 78 % [facility] % Lymphs 8 % [facility] % Monos 9 % [facility] % Eos 3 % [facility] % Baso 1 % [facility] # Neutros 6.22 (H) 1.78 - 5.38 [facility] # Lymphs 0.65 (L) 1.32 - 3.57 [facility] # Monos 0.73 0.30 - 0.82 [facility] # Eos 0.22 0.04 - 0.54 [facility]/L [facility] # Baso 0.07 0.01 - 0.08 [facility] Immature 1 0 - 1 % [facility] Granulocytes-Relativ [facility] Specimen Blood Performing Organization Address City/[facility]/Zipcode Phone Number [facility] [address] [place] [address] [place] Basic metabolic panel (04/23/2020 4:23 AM CDT)Only the most recent of3 results within the time period is included. Sodium 139 136 - 145 meq/L [facility] Potassium 4.2 3.5 - 5.1 meq/L [facility] Chloride 108 (H) 98 - 107 meq/L [facility] CO2 28 22 - 29 meq/L [facility] BUN 9 7 - 21 mg/dL [facility] Creatinine 0.77 0.57 - 1.25 [facility] mg/dL [facility] Glucose 102 70 - 105 mg/dL [facility] Calcium 8.4 8.4 - 10.2 [facility] mg/dL [facility] EGFR 106Comment: mL/min/1.73 sq [facility] ESTIMATED GFR IS NOT [facility] ACCURATE CENTER CREATININE CLEARANCE IN PREDICTING GLOMERULAR FILTRATION RATE. ESTIMATED GFR IS NOT APPLICABLE FOR DIALYSIS PATIENTS. Specimen Blood Narrative Performed At Roofing Tile Sorter ID - [facility] Performing Organization Address City/[facility]/Zipcode Phone Number [facility] [address] [place] [address] [place] [address] abdomen/pelvis with IV contrast (04/22/2020 5:51 PM CDT) Specimen Narrative Performed At FINAL REPORT [facility] TECHNIQUE: CT of the abdomen and pelvis WITH intravenous contrast and WITH oral contrast. Dose modulation, ite rative reconstruction, and/or weight-based adjustment of the mA/kV was utilized to reduce the radiation dose to as low as reasonably a chievable. INDICATION: Abdominal infection. COMPARISON: None. FINDINGS: LOWER THORAX: Trace right-sided pleural effusion with right lower lobe atelectasis. HEPATOBILIARY: No focal hepatic lesions. Status post cholecystectomy.. Common bile duct stent is in place. No biliary ductal dilation.. There is a small colle ction in the gallbladder surgical bed measuring 5.7 x 3.2 cm. SPLEEN: No splenomegaly. Incidental note is made of two splenules anterior and inferior to the spleen. PANCREAS: No focal masses or ductal dila tation. ADRENALS: No adrenal nodules. KIDNEYS/URETERS: No hydronephrosis, ston es, or solid mass lesions. 2.6 cm cyst in the upper pole of the rig ht kidney. PELVIC ORGANS/BLADDER: Unremarkable. PERITONEUM/RETROPERITONEUM: Moderate asc ites. No free intraperitoneal air.. LYMPH NODES: No lymphadenopathy. VESSELS: Unremarkable. GI TRACT: No distention or wall thickeni ng. Colonic diverticulosis without CT evidence of acute diverticuli tis. The appendix is normal. BONES AND SOFT TISSUES: Unremarkable. IMPRESSION: Status post cholecystectomy and placemen t of common bile duct stent. There is a small collection in the gallb ladder surgical bed which may represent biloma or seroma. In addition there is moderate ascites. There is concern for bile leak further e valuation with HIDA may be helpful. Trace right-sided pleural effusion. Signed: Teena Vasquez MD Report Verified Date/Time: 04/22/2020 19:21:15 Reading Location: [facility] C013Y CT Body R [facility] Room Procedure Note Interface, External Ris In - 04/22/2020 7:24 PM CDT FINAL REPORT TECHNIQUE: CT of the abdomen and pelvis WITH intravenous contrast and WITH oral contrast. Dose modulation, ite rative reconstruction, and/or weight-based adjustment of the mA/kV was utilized to reduce the radiation dose to as low as reasonably a chievable. INDICATION: Abdominal infection. COMPARISON: None. FINDINGS: LOWER THORAX: Trace right-sided pleural effusion with right lower lobe atelectasis. HEPATOBILIARY: No focal hepatic lesions. Status post cholecystectomy.. Common bile duct stent is in place. No biliary ductal dilation.. There is a small colle ction in the gallbladder surgical bed measuring 5.7 x 3.2 cm. SPLEEN: No splenomegaly. Incidental note is made of two splenules anterior and inferior to the spleen. PANCREAS: No focal masses or ductal dila tation. ADRENALS: No adrenal nodules. KIDNEYS/URETERS: No hydronephrosis, ston es, or solid mass lesions. 2.6 cm cyst in the upper pole of the rig ht kidney. PELVIC ORGANS/BLADDER: Unremarkable. PERITONEUM/RETROPERITONEUM: Moderate asc ites. No free intraperitoneal air.. LYMPH NODES: No lymphadenopathy. VESSELS: Unremarkable. GI TRACT: No distention or wall thickeni ng. Colonic diverticulosis without CT evidence of acute diverticuli tis. The appendix is normal. BONES AND SOFT TISSUES: Unremarkable. IMPRESSION: Status post cholecystectomy and placemen t of common bile duct stent. There is a small collection in the gallb ladder surgical bed which may represent biloma or seroma. In addition there is moderate ascites. There is concern for bile leak further e valuation with HIDA may be helpful. Trace right-sided pleural effusion. Signed: Teena Vasquez MD Report Verified Date/Time: 04/22/2020 9:21:15 Reading Location: [facility] B1 C013Y CT Body R eading Room Performing Organization Address City/State/Zipcode Phone Number [facility] Vancomycin level, trough (04/22/2020 1:55 PM CDT) Pathologist Sig nature Vancomycin Tr 11.5 10.0 - 20.0 ug/mL [facility] Specimen Blood Narrative Performed At [employer]ofing Tile Sorter ID - [facility] Performing Organization Address City/State/Zipcode Phone Number [facility] [address] [place] [address] CENTER Phosphorus (04/22/2020 4:15 AM CDT)Only the most recent of2 resultswithin the time period is included. Pathologist Sig nature Phosphorus 3.4 2.3 - 4.7 mg/dL [facility] Specimen Blood Narrative Performed At [facility]ofing Tile Sorter ID - [facility] Performing Organization Address City/State/Zipcode Phone Number [address] [address] CENTER Magnesium (04/22/2020 4:15 AM CDT)Only the most recent of2 resultswithin the time period is included. Pathologist Sig nature Magnesium 1.9 1.6 - 2.6 mg/dL [facility] Specimen Blood Narrative Performed At [employer] [place] - [facility] Performing Organization Address City/[facility]/Zipcode Phone Number [address] [address] [place] Hepatic function panel (04/22/2020 4:15 AM CDT)Only the most recent of2 results within the time period is included. Pathologist Sig nature Protein, Total 5.7 (L) 6.0 - 8.3 gm/dL [facility] Albumin 3.0 (L) 3.5 - 5.0 g/dL [facility] Total Bilirubin 0.5 0.2 - 1.2 mg/dL [facility] Bilirubin, Direct 0.4 0.1 - 0.5 mg/dL [facility] Alkaline Phosphatase 240 (H) 40 - 150 U/L [facility] AST 71 (H) 5 - 34 U/L [facility] ALT 26 6 - 55 U/L [facility] Specimen Blood Narrative Performed At Roofing Tile Sorter [facility] Performing Organization Address City/[facility]/Zipcode Phone Number [address] [address] [place] ERCP (04/21/2020 1:15 PM CDT) Specimen Narrative Performed At FINAL REPORT [facility] A fluoroscopic unit was utilized for a p rocedure performed in the operating room. No interpretation was re quested. Please refer to the operative report regarding findings. Ple ase refer to PACS for patient radiation dose information. Signed: Gage Sinha MD Report Verified Date/Time: 04/21/2020 14:36:55 Reading Location: [facility] B1 C013Y CT Body R eading Room Procedure Note Interface, External Ris In - 04/21/2020 2:39 PM CDT FINAL REPORT A fluoroscopic unit was utilized for a p rocedure performed in the operating room. No interpretation was re quested. Please refer to the operative report regarding findings. Ple ase refer to PACS for patient radiation dose information. Signed: Gage Sinha MD Report Verified Date/Time: 04/21/2020 1 4:36:55 Reading Location: [facility] B1 C013Y CT Body R eading Room Performing Organization Address City/State/[facility] Phone Number [facility]IS REPORT OF PROCEDURE - ENDOSCOPY URL (04/21/2020 1:14 PM CDT) Narrative Performed At This result has an attachment that is no t available. after 12/09/2019 (Home) [place] [address] Advance Directives For more information, please contact: [phone] Code Status Date Activated Date Inactivated Comments Full Code 04/21/2020 1:25 AM 04/24/2020 12:47 AM This code status was determined by: Patient
--- OUTSIDE RECORDS SUMMARY | 2020-12-09 18:22 | XMS REPORT | Continuity of Care Document ---
:1965 Author Organization [facility] t Address [address] [place] [address] Care Team Providers Name Role Phone David SMITH Attending Clinician Crystal SMTIH Attending Clinician Abdirahman Watters MD Attending Clinician Billie Beck CRNA Attending Clinician DAVID Attending Clinician Unavailable DAVID Admitting Clinician Unavailable Payers Payer Name Policy Type Policy Effective Date Expiration Date Sour Number AMBETTERAMBETTER [id number] [address] [facility] [id number] 00:00:00 - Medical -Present Center Problems Condition Condition Condition Status Onset Resolution Last Treating Co mments Source Name Details Category Date Date Treatment Clinician Date Biliary Biliary Disease Active [facility] 5-25 Yolie kes - c leak c leak 00:00: Medical 00 Center Allergies, Adverse Reactions, Alerts Allergy Allergy Status Severity Reaction(s) Onset Inactive Treating Comm ents Source Name Type Date Date Clinician Penicill Propensi Active Other (See [facility] Comments) 5-25 [facility] - adverse 00:00: Medical reaction 00 Center s Social History Social Habit Start Date Stop Date Quantity Comments Source History SDOH [facility] - Alcohol Std Drinks Medica l Center History SDOH [facility] - Alcohol Binge Medical Sweta ter Sex Assigned At [facility] Tobacco use and 2020-04-22 2020-04-22 Never used [facility] Yolie kes - exposure 00:00:00 00:00:00 [facility] Alcohol intake 2020-04-22 2020-04-[address] [facility] - 00:00:00 00:00:00 non-drinker of Medical Ce nter alcohol (finding) History SDOH 2020-04-21 2020-04-[address] [facility] - Alcohol Frequency 00:0000 00:00:00 Medical Center Smoking Status Start Date Stop Date Source Never smoker [facility] M [facility]ical [facility] Medications Ordered Filled Start Stop Current Ordering Indication Dosage Frequency Signature Comments Components Source Medication Medication Date Date Medication? Clinician (SIG) Name Name amLODIPine Yes hypertensio 5mg QD Take [address] [facility] (NORVASC) 5 5-27 n by mouth Luke s - MG tablet 22:47: nightly. Medi adam 31 Center rosuvastati Yes hyperlipide 10mg QD Take [address] [facility] n (CRESTOR) 5-27 denis by mouth Luke s - 10 MG 22:47: nightly. Medical tablet 31 Center metoprolol Yes hypertensio 100mg Q.5D Take [address] [facility] [address] tartrate 5-27 n mg by [facility] - (LOPRESSOR) 22:47: mouth 2 Med ical 100 MG 31 (two) Center tablet times daily 1/2 tab in AM1/2 tab at HS . levothyroxi Yes hypothyroid 75ug Take [address] [facility] [address] ne 5-27 ism mcg by [facility] - (SYNTHROID, 22:47: mouth Medic al LEVOTHROID) 31 Every Center 75 MCG morning on tablet an empty stomach. ciprofloxac 2020- No 500mg Q.5D Take [address] in HCl 5-27 05-27 mg by [facility] - (CIPRO) 500 17:05: 00:00 mouth 2 Me dical MG tablet 49 :00 (two) Center times daily. tamsulosin 2019- 2020- No .4mg QD Take [address] [facility] [address] (FLOMAX) 5-27 06-26 capsule [facility] - 0.4 mg Cap 00:00: 23:59 (0.4 mg Med ical 24 hr 00 :00 total) by Center capsule mouth daily for 30 days. tamsulosin 2019- 2020- No .4mg QD Take [address] (FLOMAX) 5-26 05-27 capsule [facility] - 0.4 mg Cap 00:00: 00:00 (0.4 mg Med ical 24 hr 00 :00 total) by Center capsule mouth daily for 30 days. Vital Signs Vital Name Observation Time Observation Value Comments Source Systolic blood 2020-04-23 15:50:00 123 mm[Hg] [facility] Diastolic blood 2020-04-23 15:50:00 76 mm[Hg] [facility] Heart rate 2020-04-23 15:50:00 78 /min [facility] Body temperature 2020-04-23 15:50:00 36.56 Fani [facility] Respiratory rate 2020-04-23 15:50:00 16 /min [facility] Oxygen saturation in 2020-04-23 15:50:00 100 /min [facility] Arterial blood by Medical Ce nter Pulse oximetry Body height 2020-04-21 00:26:00 177.8 cm [facility] Body weight 2020-04-21 00:26:00 103.4 kg [facility] BMI 2020-04-21 00:26:00 32.71 kg/m2 [facility] Procedures Procedure Date / Time Performed Performing Clinician [facility] US PARACENTESIS 2020-04-23 14:47:00 Apolonia Fernando [facility] PT/APTT 2020-04-23 10:19:00 David [facility] CBC W/PLT COUNT & AUTO 2020-04-23 10:19:00 Serge Armijo [facility] BASIC METABOLIC PANEL 2020-04-23 04:23[facility] ABDOMEN/PELVIS WITH 2020-04-22 17:51:00 David Serge [facility] IV CONTRAST [facility] VANCOMYCIN LEVEL, TROUGH 2020-04-22 13:55:00 Thang Krishnamurthy [facility] BASIC METABOLIC PANEL 2020-04-22 04:15:00 Melissa Kern [facility] (7) [facility] PT/APTT 2020-04-22 04:15:00 Erlin [facility] MAGNESIUM 2020-04-22 04:15:00 [facility] PHOSPHORUS 2020-04-22 04:15:00 [facility] HEPATIC FUNCTION PANEL 2020-04-22 04:15:00 [facility] [place] ERCP 2020-04-21 13:15:00 Crystal [facility] REPORT OF PROCEDURE - 2020-04-21 13:14:45 Crystal Freddie [facility] - ENDOSCOPY [facility] ERCP,BILIARY STENT 2020-04-21 13:00:00 Crystal [facility] PROCEDURE W/ C-ARM 2020-04-21 13:00:00 Crystal [facility] BASIC METABOLIC PANEL 2020-04-21 04:29:00 [facility] () [facility] PT/APTT 2020-04-21 04:29:00 [facility] MAGNESIUM 2020-04-21 04:29:00 [facility] PHOSPHORUS 2020-04-21 04:29:00 [facility] HEPATIC FUNCTION PANEL 2020-04-21 04:29:00 [facility] CBC W/PLT COUNT & AUTO 2020-04-21 04:29:00 [facility] Plan of Care Planned Activity Planned Date Details Comments Source Future Scheduled 2020-11-[address] [facility] - Test 00:00:00 (12+) [code = [facility] DEPRESSION SCREENING (12+)] Future Scheduled 2020-07-[address] [facility] - Test 00:00:00 (#1) [code = [facility] INFLUENZA VACCINE (#1)] Future Scheduled [address] [facility] - Test 00:00:00 (procedure) [code = [facility] 16684790] Future Scheduled [address] [facility] - Test 00:00:00 malignant neoplasm of Medica l Center colon (procedure) [code = 061695430] Results Test Description Test Time Test Comments Results Result Sourc e Comments U/S, PARACENTESIS 2020-03-29 Labs to be FINAL REPORT 9 ordered:->No Labs PATIENT ID: [id number] NeededReason for [id number] Ultrasound exam:->concern guided paracentesis for bilious Clinical History: ascites, please Ascites. Sedation: tap and place None. intra-abdominalSh Service Coordinator: ould this be Audrey Becerra, performed at the PA-C Supervising bedside?->Yes Physician: Kvng Stevenson MD Administrative Coordinator: None. Estimated Blood Loss: < 1 mL. Specimen: 5100 mL of clear yellow fluid, samples sent to laboratory. Technique: Informed consent was obtained. The risks of pain, bleeding, infection, bowel perforation, injury to adjacent structures, and adverse medication reactions were discussed with the patient. After informed consent was obtained, the patient's abdomen was scanned. The right lower quadrant of the abdomen was selected for paracentesis. After the largest fluid pocket area was marked, and the anterior abdominal wall was evaluated with color Doppler to exclude presence of blood vessels traversing the area, the skin was prepped and draped in the usual sterile manner. After local anesthesia was achieved with lidocaine, a 5 Hungarian one-step catheter was advanced into the peritoneal cavity under ultrasound guidance. After completion of drainage, the catheter was removed. There was no evidence of complication. Impression:Successf ul ultrasound guided paracentesis. Signed: Kvng Stevenson MDReport Verified Date/Time: 04/25/2020 09:48:02 Reading Location: [address] Ultrasound Reading Room paracentesis 2020-03-29 Interface, External [facility] 9 [facility] In - 04/25/2020 [facility] - 09:48:00 9:50 AM CDTFINAL Medical REPORT PATIENT ID: Center [id number] Ultrasound guided paracentesis Clinical History: Ascites. Sedation: None. Service Coordinator: Audery Becerra PA-C Supervising Physician: Kvng Stevenson MD Administrative Coordinator: None. Estimated Blood Loss: < 1 mL. Specimen: 5100 mL of clear yellow fluid, samples sent to laboratory. Technique: Informed consent was obtained. The risks of pain, bleeding, infection, bowel perforation, injury to adjacent structures, and adverse medication reactions were discussed with the patient. After informed consent was obtained, the patient's abdomen was scanned. The right lower quadrant of the abdomen was selected for paracentesis. After the largest fluid pocket area was marked, and the anterior abdominal wall was evaluated with color Doppler to exclude presence of blood vessels traversing the area, the skin was prepped and draped in the usual sterile manner. After local anesthesia was achieved with lidocaine, a 5 Hungarian one-step catheter was advanced into the peritoneal cavity under ultrasound guidance. After completion of drainage, the catheter was removed. There was no evidence of complication. Impression:Successf ul ultrasound guided paracentesis. Signed: Kvng [place] Verified Date/Time: 04/25/2020 09:48:02 Reading Location: [address] Ultrasound Reading Room /aPTT 2020-04-23 10:43:00 Test Item Value Reference Range Interpretation Comme nts Protime (test code = 5902-2) 16.8 11.9- 14.2 seconds H INR (test code = 6301-6) 1.4 <=5.9 PTT (test code = 52862-1) 43.8 22.5- 36.0 seconds H CHRIS (test code = CHRIS) Effective 04/25/2019: PT Reference Range ChangeNew: 11.9-14.2 Previous: 11.7-14.7 RECOMMENDED COUMADIN/WARFARIN INR THERAPY RANGESSTANDARD DOSE: 2.0-3.0 Includes: PROPHYLAXIS for venous thrombosis, systemic embolization; TREATMENT for venous thrombosis and/or pulmonary embolus.HIGH RISK: Target INR is 2.5-3.5 for patients wiht mechanical heart valves. Lab Interpretation (test code = Abnormal 69089-9) [id number] 10:43:00 Test Item Value Reference Range Interpretation Comments PROTIME (BEAKER) (test code = 16.8 seconds 11.9-14.2 H 759) INR (BEAKER) (test code = 370) 1.4 <=5.9 PARTIAL THROMBOPLASTIN TIME 43.8 seconds 22.5-36.0 H (BEAKER) (test code = 760) Effective 04/25/2019: PT Reference Range ChangeNew: 11.9-14.2 Previous: 11.7- 14.7RECOMMENDED COUMADIN/WARFARIN INR THERAPY RANGESSTANDARD DOSE: 2.0-3.0 Includes: PROPHYLAXIS for venous thrombosis, systemic embolization; TREATMENT for venous thrombosis and/or pulmonary embolus.HIGH RISK: Target INR is2.5-3.5 for patients wiht mechanical heart valves.CBC with platelet count + automated [id number] 10:42:00 Test Item Value Reference Range Interpretation Comments WBC (test code = 6690-2) 8.0 3.5- 10.5 K/L RBC (test code = 789-8) 3.17 4.63- 6.08 M/L L MCHC (test code = 786-4) 32.1 32.3- 36.5 GM/DL L Hematocrit (test code = 4544-3) 32.4 % 40.1-51 L MCV (test code = 787-2) 102.2 fL 79-92.2 H MCH (test code = 785-6) 32.8 pg 25.7-32.2 H RDW (test code = 788-0) 14.0 % 11.6-14.4 Platelets (test code = 777-3) 212 150- 450 K/CU MM MPV (test code = 11187-8) 10.8 fL 9.4-12.4 nRBC (test code = 413) 0 0- 0 /100 WBC % Neutros (test code = 429) 78 % % Lymphs (test code = 430) 8 % % Monos (test code = 431) 9 % % Eos (test code = 432) 3 % % Baso (test code = 437) 1 % # Neutros (test code = 670) 6.22 1.78- 5.38 K/L H # Lymphs (test code = 414) 0.65 1.32- 3.57 K/L L # Monos (test code = 415) 0.73 0.30- 0.82 K/L # Eos (test code = 416) 0.22 0.04- 0.54 K/L # Baso (test code = 417) 0.07 0.01- 0.08 K/L Immature Granulocytes-Relative 1 % 0-1 (test code = 2801) Lab Interpretation (test code = Abnormal 07189-3) [facility] W/PLT COUNT & AUTO [id number] 10:42:00 Test Item Value Reference Range Interpretation Comments WHITE BLOOD CELL COUNT (BEAKER) 8.0 K/ L 3.5-10.5 (test code = 775) RED BLOOD CELL COUNT (BEAKER) 3.17 M/ L 4.63-6.08 L (test code = 761) HEMOGLOBIN (BEAKER) (test code = 10.4 GM/DL 13.7-17.5 L 410) HEMATOCRIT (BEAKER) (test code = 32.4 % 40.1-51.0 L 411) MEAN CORPUSCULAR VOLUME (BEAKER) 102.2 fL 79.0-92.2 H (test code = 753) MEAN CORPUSCULAR HEMOGLOBIN 32.8 pg 25.7-32.2 H (BEAKER) (test code = 751) MEAN CORPUSCULAR HEMOGLOBIN CONC 32.1 GM/DL 32.3-36.5 L (BEAKER) (test code = 752) RED CELL DISTRIBUTION WIDTH 14.0 % 11.6-14.4 (BEAKER) (test code = 412) PLATELET COUNT (BEAKER) (test 212 K/CU MM 150-450 code = 756) MEAN PLATELET VOLUME (BEAKER) 10.8 fL 9.4-12.4 (test code = 754) NUCLEATED RED BLOOD CELLS 0 /100 WBC 0-0 (BEAKER) (test code = 413) NEUTROPHILS RELATIVE PERCENT 78 % (BEAKER) (test code = 429) LYMPHOCYTES RELATIVE PERCENT 8 % (BEAKER) (test code = 430) MONOCYTES RELATIVE PERCENT 9 % (BEAKER) (test code = 431) EOSINOPHILS RELATIVE PERCENT 3 % (BEAKER) (test code = 432) BASOPHILS RELATIVE PERCENT 1 % (BEAKER) (test code = 437) NEUTROPHILS ABSOLUTE COUNT 6.22 K/ L 1.78-5.38 H (BEAKER) (test code = 670) LYMPHOCYTES ABSOLUTE COUNT 0.65 K/ L 1.32-3.57 L (BEAKER) (test code = 414) MONOCYTES ABSOLUTE COUNT (BEAKER) 0.73 K/ L 0.30-0.82 (test code = 415) EOSINOPHILS ABSOLUTE COUNT 0.22 K/ L 0.04-0.54 (BEAKER) (test code = 416) BASOPHILS ABSOLUTE COUNT (BEAKER) 0.07 K/ L 0.01-0.08 (test code = 417) IMMATURE GRANULOCYTES-RELATIVE 1 % 0-1 PERCENT (BEAKER) (test code = 2801) Basic metabolic [id number] 05:55:00 Test Item Value Reference Range Interpretation Comments Sodium (test code = 139 meq/L 674-166 2178-2) Potassium (test code = 4.2 meq/L 3.5-5.1 2823-3) Chloride (test code = 108 meq/L 98-107 H 2075-0) CO2 (test code = 28 meq/L 22-29 8-9) BUN (test code = 9 mg/dL 7-21 3094-0) Creatinine (test code 0.77 mg/dL 0.57-1.25 = 2160-0) Glucose (test code = 102 mg/dL 70-105 2345-7) Calcium (test code = 8.4 mg/dL 8.4-10.2 52283-5) EGFR (test code = 106 mL/min/1.73 [place] [address]-9) NOT ACCURATE CREATININE CLEARANCE IN PREDICTING GLOMERULAR FILTRATION RATE . ESTIMATED GFR I S NOT APPLICABLE FOR DIALYSIS PATIENTS. CHRIS (test code = CHRIS) Display Carver ID - PIAYA L Lab Interpretation Abnormal (test code = 49258-5) [facility] METABOLIC [id number] 05:55:00 Test Item Value Reference Range Interpretation Comments SODIUM (BEAKER) 139 meq/L 136-145 (test code = 381) POTASSIUM (BEAKER) 4.2 meq/L 3.5-5.1 (test code = 379) CHLORIDE (BEAKER) 108 meq/L 98-107 H (test code = 382) CO2 (BEAKER) (test 28 meq/L 22-29 code = 355) BLOOD UREA NITROGEN 9 mg/dL 7-21 (BEAKER) (test code = 354) CREATININE (BEAKER) 0.77 mg/dL 0.57-1.25 (test code = 358) GLUCOSE RANDOM 102 mg/dL 70-105 (BEAKER) (test code = 652) CALCIUM (BEAKER) 8.4 mg/dL 8.4-10.2 (test code = 697) EGFR (ANGELES) (test 106 mL/min/1.73 ESTIM ATED GFR IS code = 1092) sq m NOT ACCURATE CREATININE CLEARANCE IN PREDICTING GLOMERULAR FILTRATION RATE . ESTIMATED GFR I S NOT APPLICABLE FOR DIALYSIS PATIEN TS. Display Carver ID - ANTOINE LCT, [id number] 19:21:00FINAL REPORT TECHNIQUE: CT of the abdomen and pelvis WITH intravenous contrast and WITH oral contrast. Dose modulation, iterative reconstruction, and/or weight- based adjustment of the mA/kV was utilized to reduce the radiation dose to as low as reasonably achievable. INDICATION:Abdominal infection. COMPARISON: None. FINDINGS: LOWER THORAX: Trace right-sided pleural effusion with right lower lobe atelectasis. HEPATOBILIARY: No focal hepatic lesions. Status post cholecystectomy.. Common bile duct stent is in place. No biliary ductal dilation.. There is a small collection in the gallbladder surgical bed measuring 5.7 x 3.2 cm.SPLEEN: No splenomegaly. Incidental note is made of two splenules anterior and inferior to the spleen.PANCREAS: No focal masses or ductal dilatation. ADRENALS: No adrenal nodules.KIDNEYS/URETERS: No hydronephrosis, stones, or solid mass lesions. 2.6 cmcyst in the upper pole of the right kidney.PELVIC ORGANS/BLADDER: Unremarkable. PERITONEUM/RETROPERITONEUM: Moderate ascites. No free intraperitoneal air..LYMPH NODES: No lymphadenopathy.VESSELS: Unremarkable. GI TRACT: No distention or wall thickening. Colonic diverticulosis without CT evidence of acute diverticulitis. The appendix is normal. BONES AND SOFT TISSUES: Unremarkable. IMPRESSION:Status post cholecystectomy and placement of common bile duct stent. There is a small collection in the gallb ladder surgical bed which may represent biloma or seroma. In addition there is moderate ascites. There is concern for bile leak further evaluation with HIDA may be helpful. Trace right-sided pleural effusion. Signed: Teena Bui MDReport Verified Date/Time: 04/22/2020 19:21:15 Reading Location: [facility] B1 C013Y CT Body Reading Room CT abdomen/pelvis with IV [id number] 19:21:00Interface, External Ris In - 04/22/2020 7:24 PM CDTFINAL REPORT TECHNIQUE: CT of the abdomen and pelvis WITH intravenous contrast and WITH oral contrast. Dose modulation, iterative reconstruction, and/or weight-based adjustment of the mA/kV was utilized to reduce the radiation dose to as low as reasonably achievable. INDICATION: Abdominal infection. COMPARISON: None. FINDINGS: LOWER THORAX: Trace right-sided pleural effusion with right lower lobe atelectasis. HEPATOBILIARY: No focal hepatic lesions. Status post cholecystectomy.. Common bile duct stent is in place. No biliary ductal dilation.. There is a small collection in the gallbladder surgical bed measuring 5.7 x 3.2 cm.SPLEEN: No splenomegaly. Incidental note is made of two splenules anterior and inferior to the spleen.PANCREAS: No focal masses or ductal dilatation. ADRENALS: No adrenal nodules.KIDNEYS/URETERS: No hydronephrosis, stones, or solid mass lesions. 2.6 cm cyst in the upper pole of the right kidney.PELVIC ORGANS/BLADDER: Unremarkable. PERITONEUM/RETROPERITONEUM: Moderate ascites. No free intraperitonealair..LYMPH NODES: No lymphadenopathy.VESSELS: Unremarkable. GI TRACT: No distention or wall thickening. Colonic diverticulosis without CT evidence of acute diverticulitis. The appendix is normal. BONESAND SOFT TISSUES: Unremarkable. IMPRESSION:Status post cholecystectomy and placement of common bileduct stent. There is a small collection in the gallbladder surgical bed which may represent biloma or seroma. In addition there is moderate ascites. There is concern for bile leak further evaluation with HIDA may be helpful. Trace right-sided pleural effusion. Signed: Teena Bui MDReport Verified Date/Time: 04/22/2020 19:21:15 Reading Location: [facility] B1 C013Y CT Body Reading [facility] [id number] 14:50:00 Test Item Value Reference Range Interpretation Comments Vancomycin Tr (test code = 11.5 ug/mL 09-16 4092-3) CHRIS (test code = CHRIS) Display Carver ID - BS Lab Interpretation (test Normal code = 15613-9) [facility], [id number] 14:50:00 Test Item Value Reference Range Interpretation Comments VANCOMYCIN TROUGH (BEAKER) (test 11.5 ug/mL 10.0-20.0 code = 522) Display Carver ID - BSHepatic function [id number] 05:22:00 Test Item Value Reference Range Interpretation Comments Protein, Total (test code = 5.7 6.0- 8.3 gm/dL L 2885-2) Albumin (test code = 3.0 g/dL 3.5-5 L 34434-6) Total Bilirubin (test code = 0.5 mg/dL 0.2-1.2 1974-2) Bilirubin, Direct (test code 0.4 mg/dL 0.1-0.5 = 1968-7) Alkaline Phosphatase (test 240 U/L 40-150 H code = 6768-6) AST (test code = 1920-8) 71 U/L 5-34 H ALT (test code = 1742-6) 26 U/L 6-55 CHRIS (test code = CHRIS) Display Carver ID - LA Lab Interpretation (test Abnormal code = 11358-7) [facility] CenterMagnesium2020-05-26 05:22:00 Test Item Value Reference Range Interpretation Comments Magnesium (test code = 1.9 mg/dL 1.6-2.6 04786-3) CHRIS (test code = CHRIS) Display Carver ID - LA Lab Interpretation (test Normal code = 90843-4) [facility] Center[facility]osph[facility]2020-05-26 05:22:00 Test Item Value Reference Range Interpretation Comments Phosphorus (test code = 3.4 mg/dL 2.3-4.7 2777-1) CHRIS (test code = CHRIS) Display Carver ID - [place] Lab Interpretation (test Normal code = 13980-2) [facility] CenterPHOS[facility]US2020-05-26 05:22:00 Test Item Value Reference Range Interpretation Comments PHOSPHORUS (BEAKER) (test code = 3.4 mg/dL 2.3-4.7 604) Display Carver ID - [id number] 05:22:00 Test Item Value Reference Range Interpretation Comments MAGNESIUM (BEAKER) (test code = 1.9 mg/dL 1.6-2.6 627) Display Carver ID - LABASIC METABOLIC [id number] 05:22:00 Test Item Value Reference Range Interpretation Comments SODIUM (BEAKER) 137 meq/L 136-145 (test code = 381) POTASSIUM (BEAKER) 3.8 meq/L 3.5-5.1 (test code = 379) CHLORIDE (BEAKER) 108 meq/L 98-107 H (test code = 382) CO2 (BEAKER) (test 26 meq/L 22-29 code = 355) BLOOD UREA NITROGEN 10 mg/dL 7-21 (BEAKER) (test code = 354) CREATININE (BEAKER) 0.74 mg/dL 0.57-1.25 (test code = 358) GLUCOSE RANDOM 103 mg/dL 70-105 (BEAKER) (test code = 652) CALCIUM (BEAKER) 8.0 mg/dL 8.4-10.2 L (test code = 697) EGFR (BEAKER) (test 111 mL/min/1.73 ESTIM ATED GFR IS code = 1092) sq m NOT ACCURATE CREATININE CLEARANCE IN PREDICTING GLOMERULAR FILTRATION RATE . ESTIMATED GFR I S NOT APPLICABLE FOR DIALYSIS PATIEN TS. Display Carver ID - LAHEPATIC FUNCTION [id number] 05:22:00 Test Item Value Reference Range Interpretation Comments TOTAL PROTEIN (BEAKER) (test code = 5.7 gm/dL 6.0-8.3 L 770) ALBUMIN (BEAKER) (test code = 1145) 3.0 g/dL 3.5-5.0 L BILIRUBIN TOTAL (BEAKER) (test code 0.5 mg/dL 0.2-1.2 = 377) BILIRUBIN DIRECT (BEAKER) (test 0.4 mg/dL 0.1-0.5 code = 706) ALKALINE PHOSPHATASE (BEAKER) (test 240 U/L 40-150 H code = 346) AST (SGOT) (BEAKER) (test code = 71 U/L 5-34 H 353) ALT (SGPT) (BEAKER) (test code = 26 U/L 6-55 347) Display Carver ID - LAPT/[id number] 05:05:00 Test Item Value Reference Range Interpretation Comments PROTIME (BEAKER) (test code = 16.6 seconds 11.9-14.2 H 759) INR (BEAKER) (test code = 370) 1.4 <=5.9 PARTIAL THROMBOPLASTIN TIME 42.6 seconds 22.5-36.0 H (BEAKER) (test code = 760) Effective 04/25/2019: PT Reference Range ChangeNew: 11.9-14.2 Previous: 11.7- 14.7RECOMMENDED COUMADIN/WARFARIN INR THERAPY RANGESSTANDARD DOSE: 2.0-3.0 Includes: PROPHYLAXIS for venous thrombosis, systemic embolization; TREATMENT for venous thrombosis and/or pulmonary embolus.HIGH RISK: Target INR is2.5-3.5 for patients wiht mechanical heart valves.FL, [id number] 14:36:00Reason for exam:->CBD stonesFINAL REPORT A fluoroscopic unit was utilized for a procedure performed in the operating room. No interpretation was requested. Please refer to the operative report regarding findings. Please refer to PACS for patient radiation dose information. Signed: Gage Sinha Verified Date/Time: 04/21/2020 14:36:55 Reading Location: [facility] C013Y CT Body Reading Room [facility] [id number] 14:36:00Interface, External Ris In - 04/21/2020 2:39 PM CDTFINAL REPORT A fluoroscopic unit was utilized for a procedure performed in the operating room. No interpretation was requested. Please refer to the operative report regarding findings. Please refer to PACS for patient radiationdose information. Signed: Gage Sinha Verified Date/Time: 04/21/2020 14:36:55 Reading Location: [facility] B1 C013Y CT Body Reading Room [facility] CenterPHOSPHORUS2020-05-25 05:58:00 Test Item Value Reference Range Interpretation Comments PHOSPHORUS (BEAKER) (test code = 3.4 mg/dL 2.3-4.7 604) Display Carver ID - NEEMA [id number] 05:58:00 Test Item Value Reference Range Interpretation Comments MAGNESIUM (BEAKER) (test code = 2.0 mg/dL 1.6-2.6 627) Display Carver ID - NEEMA MBASIC METABOLIC [id number] 05:58:00 Test Item Value Reference Range Interpretation Comments SODIUM (BEAKER) 139 meq/L 136-145 (test code = 381) POTASSIUM (BEAKER) 4.2 meq/L 3.5-5.1 (test code = 379) CHLORIDE (BEAKER) 106 meq/L 98-107 (test code = 382) CO2 (BEAKER) (test 27 meq/L 22-29 code = 355) BLOOD UREA NITROGEN 10 mg/dL 7-21 (BEAKER) (test code = 354) CREATININE (BEAKER) 0.77 mg/dL 0.57-1.25 (test code = 358) GLUCOSE RANDOM 96 mg/dL 70-105 (BEAKER) (test code = 652) CALCIUM (BEAKER) 8.1 mg/dL 8.4-10.2 L (test code = 697) EGFR (BEAKER) (test 106 mL/min/1.73 ESTIM ATED GFR IS code = 1092) sq m NOT ACCURATE CREATININE CLEARANCE IN PREDICTING GLOMERULAR FILTRATION RATE . ESTIMATED GFR I S NOT APPLICABLE FOR DIALYSIS PATIEN TS. Display Carver ID - NEEMA MHEPATIC FUNCTION [id number] 05:58:00 Test Item Value Reference Range Interpretation Comments TOTAL PROTEIN (BEAKER) (test code = 5.7 gm/dL 6.0-8.3 L 770) ALBUMIN (BEAKER) (test code = 1145) 3.0 g/dL 3.5-5.0 L BILIRUBIN TOTAL (BEAKER) (test code 0.6 mg/dL 0.2-1.2 = 377) BILIRUBIN DIRECT (BEAKER) (test 0.4 mg/dL 0.1-0.5 code = 706) ALKALINE PHOSPHATASE (BEAKER) (test 227 U/L 40-150 H code = 346) AST (SGOT) (BEAKER) (test code = 77 U/L 5-34 H 353) ALT (SGPT) (BEAKER) (test code = 26 U/L 6-55 347) Display Carver ID - NEEMA [id number] 05:39:00 Test Item Value Reference Range Interpretation Comments PROTIME (BEAKER) (test code = 16.7 seconds 11.9-14.2 H 759) INR (BEAKER) (test code = 370) 1.4 <=5.9 PARTIAL THROMBOPLASTIN TIME 48.8 seconds 22.5-36.0 H (BEAKER) (test code = 760) Effective 04/25/2019: PT Reference Range ChangeNew: 11.9-14.2 Previous: 11.7- 14.7RECOMMENDED COUMADIN/WARFARIN INR THERAPY RANGESSTANDARD DOSE: 2.0-3.0 Includes: PROPHYLAXIS for venous thrombosis, systemic embolization; TREATMENT for venous thrombosis and/or pulmonary embolus.HIGH RISK: Target INR is2.5-3.5 for patients wiht mechanical heart valves.CBC W/PLT COUNT & AUTO [id number] 05:20:00 Test Item Value Reference Range Interpretation Comments WHITE BLOOD CELL COUNT (BEAKER) 7.8 K/ L 3.5-10.5 (test code = 775) RED BLOOD CELL COUNT (BEAKER) 3.10 M/ L 4.63-6.08 L (test code = 761) HEMOGLOBIN (BEAKER) (test code = 10.0 GM/DL 13.7-17.5 L 410) HEMATOCRIT (BEAKER) (test code = 31.9 % 40.1-51.0 L 411) MEAN CORPUSCULAR VOLUME (BEAKER) 102.9 fL 79.0-92.2 H (test code = 753) MEAN CORPUSCULAR HEMOGLOBIN 32.3 pg 25.7-32.2 H (BEAKER) (test code = 751) MEAN CORPUSCULAR HEMOGLOBIN CONC 31.3 GM/DL 32.3-36.5 L (BEAKER) (test code = 752) RED CELL DISTRIBUTION WIDTH 13.9 % 11.6-14.4 (BEAKER) (test code = 412) PLATELET COUNT (BEAKER) (test 230 K/CU MM 150-450 code = 756) MEAN PLATELET VOLUME (BEAKER) 10.8 fL 9.4-12.4 (test code = 754) NUCLEATED RED BLOOD CELLS 0 /100 WBC 0-0 (BEAKER) (test code = 413) NEUTROPHILS RELATIVE PERCENT 76 % (BEAKER) (test code = 429) LYMPHOCYTES RELATIVE PERCENT 10 % (BEAKER) (test code = 430) MONOCYTES RELATIVE PERCENT 9 % (BEAKER) (test code = 431) EOSINOPHILS RELATIVE PERCENT 3 % (BEAKER) (test code = 432) BASOPHILS RELATIVE PERCENT 1 % (BEAKER) (test code = 437) NEUTROPHILS ABSOLUTE COUNT 5.94 K/ L 1.78-5.38 H (BEAKER) (test code = 670) LYMPHOCYTES ABSOLUTE COUNT 0.79 K/ L 1.32-3.57 L (BEAKER) (test code = 414) MONOCYTES ABSOLUTE COUNT (BEAKER) 0.71 K/ L 0.30-0.82 (test code = 415) EOSINOPHILS ABSOLUTE COUNT 0.27 K/ L 0.04-0.54 (BEAKER) (test code = 416) BASOPHILS ABSOLUTE COUNT (BEAKER) 0.06 K/ L 0.01-0.08 (test code = 417) IMMATURE GRANULOCYTES-RELATIVE 1 % 0-1 PERCENT (BEAKER) (test code = 2809)
--- NOTE | 2020-12-09 18:35 | RAD REPORT ---
EXAM DESCRIPTION: CT - Ct Stroke Brain Wo Cont - 12/09/2020 6:25 pm CLINICAL HISTORY: Confusion/alteration of awareness COMPARISON: October 2020 TECHNIQUE: Computed axial tomography of the head was obtained. All CT scans are performed using dose optimization technique as appropriate and may include automated exposure control or mA/KV adjustment according to patient size. FINDINGS: An intracranial bleed is not seen . The ventricles are normal in caliber. No extra-axial fluid collection is noted. Mild to moderate low-density within periventricular, deep and subcortical white matter likely ischemi c changes secondary to small vessel disease Fluid within the sinuses/ mastoids is not seen. IMPRESSION: No acute intracranial abnormality is seen. If patient's symptoms persist MRI of the bra in would be recommended. Keke Alberts of the emergency room was notified at 6:29 p.m. December 09, 2020
[2020-12-09 18:42] LABS: Absolute Lymphocytes (CBC) 2.2 K/uL (0.7-4.9); Basophils % 3.8 % (0-1.3); Hematocrit 38.6 % (39.6-49.0); Lymphocytes % 36.8 % (15.3-44.8); MPV 8.5 fL (7.6-11.3); RBC Red Blood Cell Count 3.85 M/uL (4.33-5.43)
[2020-12-09 18:45] LABS: Protime INR 1.03
[2020-12-09] MEDS ORDERED: NA CHLORIDE 0.9% 250 ML ONE (18:54)
[2020-12-09] MEDS ORDERED: ALTEPLASE 100 ML IV ONE (18:54)
[2020-12-09 18:56] LABS: Potassium 3.2 mmol/L (3.5-5.1)
--- NOTE | 2020-12-09 19:00 | RAD REPORT ---
EXAM DESCRIPTION: [place] Single View12/09/2020 6:53 pm CLINICAL HISTORY: Hypertension/headache COMPARISON: March 2020 FINDINGS: The lungs appear clear of acute infiltrate. The heart is normal size IMPRESSION: No acute abnormalities displayed
--- NOTE | 2020-12-09 19:19 | ER ---
Nurse's Notes [facility] Name: Koko Iniguez Age: 55 yrs Sex: Male : 1965 Arrival Date: 12/09/2020 Time: 18:20 Bed 25 Private MD: Diagnosis: Weakness-Left Arm and Left Leg;Speech disturbances, not elsewhere classified Presentation: 12/09 18:20 Chief complaint: Spouse and/or significant other states: "He has been complaining of a ss bad headache all day then about 45 minutes ago, he just started not acting right.". Coronavirus screen: Client denies travel out of the [place] in the last 14 days. Onset of symptoms was December 09, 2020. 18:20 Method Of Arrival: Wheelchair ss 18:20 Acuity: VIRGILIO 2 ss 18:20 Ebola Screen: Patient negative for fever greater than or equal to 101.5 degrees vg1 Fahrenheit, and additional compatible Ebola Virus Disease symptoms. An acute neurological deficit is present. The charge nurse has been notified. 18:20 Initial Sepsis Screen: Does the patient meet any 2 criteria? No. Patient's initial vg1 sepsis screen is negative. Does the patient have a suspected source of infection? No. Patient's initial sepsis screen is negative. Risk Assessment: Do you want to hurt yourself or someone else? Patient reports no desire to harm self or others. Triage Assessment: 18:20 The onset of the patients symptoms was December 09, 2020 at 18:00. vg1 18:20 General: Appears in no apparent distress. vg1 Historical: - Allergies: 18:35 PENICILLINS; ss - PMHx: 18:35 Hyperlipidemia; Hypertension; Thyroid problem; ss - PSHx: 18:35 Cholecystectomy; ss - Immunization history:: Adult Immunizations up to date. - Social history:: Smoking status: Patient denies any tobacco usage or history of. Screenin:20 Abuse screen: Denies threats or abuse. Nutritional screening: No deficits noted. vg1 Tuberculosis screening: No symptoms or risk factors identified. Fall Risk No fall in past 12 months (0 pts). No secondary diagnosis (0 pts). IV access (20 points). Ambulatory Aid- None/Bed Rest/Nurse Assist (0 pts). Gait- Weak (10 pts.). Mental Status- Oriented to own ability (0 pts). Total [place] Fall Scale indicates Low Risk Score (25-44 pts). Fall prevention measures have been instituted. Side Rails Up X 2. Assessment: 18:19 VAN Scoring: Arm Drift: Minor drift Provider notified of bedside swallow screening vg1 results: Dank HEARN. T-PA (Activase) Screening: Indications: Definite evidence of stroke, ischemic, embolic, or hypertensive: Yes. Treatment will start within 4.5 hours onset of symptoms: Yes. Pain: Denies pain. 18:22 Reassessment: In CT now. ss 18:25 The patient has not been NPO before screening. The patient is alert, and able to follow ss commands. The patient exhibits slurred or garbled speech. The patient is exhibiting difficulty speaking. The patient does not exhibit difficulty understanding words. The patient is able to swallow own secretions with no drooling or need for suction. The patient failed the bedside swallow screening. The patient will be kept NPO until cleared by Speech Therapy or Physician. Reassessment: Pt is back from CT at this time. 18:25 General: Behavior is cooperative. Neuro: Intact . Reports reports that patient has vg1 had a severe headache over the past few days. . Denies blurred vision dizziness. Neuro: Level of Consciousness is awake, alert, Oriented to person, Speech garbled. Facial symmetry appears normal. Cardiovascular: Capillary refill < 3 seconds is brisk in bilateral fingers. Respiratory: Airway is patent Trachea midline Respiratory effort is even, unlabored, Respiratory pattern is regular, symmetrical. GI: Abdomen is non-distended, Patient currently denies abdominal pain, diarrhea, nausea, vomiting. : No signs and/or symptoms were reported regarding the genitourinary system. EENT: Nares are clear. Derm: Skin is intact, is healthy with good turgor, Skin is dry, Skin is pink, warm \\T\\ dry. normal. Musculoskeletal: Circulation, motion, and sensation intact. Range of motion: intact in all extremities. 20:15 Reassessment: Patient appears in no apparent distress at this time. Patient and/or vg1 family updated on plan of care and expected duration. Pain level reassessed. Patient is alert, oriented x 3, equal unlabored respirations, skin warm/dry/pink. Patient's chart has the t-Pa flow sheet. Patient denies pain at this time. Vital Signs: 18:30 BP 140 / 95; Pulse 80; Resp 14; Pulse Ox 95% on R/A; vg1 18:30 Weight 90.26 kg; vg1 18:51 Weight 90.72 kg (R); ss 19:15 BP 124 / 86; Pulse 71; Resp 16; Pulse Ox 100% on R/A; vg1 19:20 Temp 98.1(TE); vg1 19:30 BP 132 / 83; Pulse 78; Resp 16; Pulse Ox 100% on R/A; vg1 19:45 BP 135 / 99; Pulse 76; Resp 14; Pulse Ox 100% on R/A; vg1 20:00 BP 131 / 92; Pulse 85; Resp 16; Pulse Ox 100% on R/A; vg1 20:15 BP 157 / 98; Pulse 75; Resp 16; Pulse Ox 100% on R/A; vg1 NIH Stroke Scale Scores: 18:19 NIHSS Score: 2 vg1 18:40 NIHSS Score: 3 cp ED Course: 18:20 Patient arrived in ED. ag5 18:20 Patient has correct armband on for positive identification. Bed in low position. Call vg1 light in reach. Side rails up X2. Adult w/ patient. desk monitor on. Pulse ox on. NIBP on. 18:26 CT Stroke Brain w/o Contrast In Process Unspecified. EDMS 18:31 Dank Barbosa PA is PHCP. cp 18:31 Dank Santacruz MD is Attending Physician. cp 18:34 Triage completed. ss 18:35 Arm band placed on right wrist. ss 18:45 Patient maintains SpO2 saturation greater than 95% on room air. jp3 18:45 Initial lab(s) drawn, by me, sent to lab. Inserted saline lock: 20 gauge in left jp3 antecubital area, using aseptic technique. Blood collected. 18:51 initiated transfer to [facility], pt denied due to no icu beds at this time. bd per franci. 18:56 Stroke CXR 1 View In Process Unspecified. EDMS 19:00 initiated transfer to [facility]. bd 19:00 Missed attempt(s): 18 gauge in right antecubital area. Bleeding controlled, band aid jp3 applied, catheter tip intact. 19:09 Tyra James, RN is Primary Nurse. vg1 19:10 administrative approval given by Noah Desai/ patient has been accepted to [address] Department/ Dr. Hinson has accepted the patient in transfer/ report to be called to [phone]. 19:14 Inserted saline lock: 22 gauge in right hand, using aseptic technique. ,using aseptic vg1 technique. Insertion by Monisha Gutierrez RN. 20:17 No provider procedures requiring assistance completed. Patient transferred, IV remains vg1 in place. Administered Medications: 19:15 Drug: Alteplase (Bolus for Stroke) - Activase 0.09 mg/kg {Co-Signature: em (Melchor Kat vg1 RN).} {Note: 81 mg total dose.} Route: IV Thrombolytics; Infused Over: 1 mins; 19:19 Drug: foLIC Acid 1 mg Route: IVPB; Site: left antecubital; vg1 19:19 Drug: NS 0.9% 1000 ml Route: IV; Rate: 1 bolus; Site: left antecubital; vg1 Point of Care Testing: Blood Glucose: 18:20 Blood Glucose: 97 mg/dL; vg1 Ranges: Outcome: 19:18 ER care complete, transfer ordered by . cp 20:19 Transferred by ground EMS vg1 20:19 Condition: improved 20:19 Discharge instructions given to patient, family, Instructed on the need for transfer, Demonstrated understanding of instructions. 20:21 Patient left the ED. NIH Stroke Scale - NIH Stroke Score Date: 12/09/2020 Time: 18:19 Total Score = 2 1a. Level of Consciousness (LOC) - 0(Alert) 1b. Level of Consciousness (LOC) (Year \\T\\ Age) - 1(One) 1c. LOC Commands (Open \\T\\ Closes Eyes/Bilingual Speech Therapist) - 0(Both) 2. Best Gaze (Lateral Gaze Paresis) - 0(Normal) 3. Visual Field Loss - 0(No visual loss) 4. Facial Palsy - 0(Normal) 5a. Left Arm: Motor (10-second hold) - 1(Drift) 5b. Right Arm: Motor (10-second hold) - 0(No drift) 6a. Left Leg: Motor (5-second hold - always test supine) - 0(No drift) 6b. Right Leg: Motor (5-second hold - always test supine) - 0(No drift) 7. Limb Ataxia (finger/nose \\T\\ heel/espitia - test with eyes open) - 0(Absent) 8. Sensory Loss (pinprick arms/legs/face) - 0(Normal) 9. Best Language: Aphasia (description/naming/reading) - 0(No aphasia) 10. Dysarthria (speech clarity - read or repeat words) - 0(Normal) 11. Extinction and Inattention (visual/tactile/auditory/spatial/personal) - 0(No abnormality) Initials: vg1 NIH Stroke Scale - NIH Stroke Score Date: 12/09/2020 Time: 18:40 Total Score = 3 1a. Level of Consciousness (LOC) - 0(Alert) 1b. Level of Consciousness (LOC) (Year \\T\\ Age) - 0(Both) 1c. LOC Commands (Open \\T\\ Closes Eyes/Bilingual Speech Therapist) - 0(Both) 2. Best Gaze (Lateral Gaze Paresis) - 0(Normal) 3. Visual Field Loss - 0(No visual loss) 4. Facial Palsy - 0(Normal) 5a. Left Arm: Motor (10-second hold) - 1(Drift) 5b. Right Arm: Motor (10-second hold) - 0(No drift) 6a. Left Leg: Motor (5-second hold - always test supine) - 0(No drift) 6b. Right Leg: Motor (5-second hold - always test supine) - 0(No drift) 7. Limb Ataxia (finger/nose \\T\\ heel/espitia - test with eyes open) - 1(Present in one limb) 8. Sensory Loss (pinprick arms/legs/face) - 0(Normal) 9. Best Language: Aphasia (description/naming/reading) - 0(No aphasia) 10. Dysarthria (speech clarity - read or repeat words) - 1(Mild to Moderate) 11. Extinction and Inattention (visual/tactile/auditory/spatial/personal) - 0(No abnormality) Initials: cp Signatures: Dispatcher [employer] Ariana Rod Steven, RN ELLE Monisha Gutierrez RN RN ss Dank Barbosa PA PA cp Cem Oakes mw2 Barron Urena jp3 Sujey Liu ag5 Tyra James, ELLE RN vg1 Melchor Kat RN em
--- NOTE | 2020-12-09 19:19 | EDPHYS ---
Physician Documentation [facility] Name: Koko Iniguez Age: 55 yrs Sex: Male : 1965 Arrival Date: 12/09/2020 Time: 18:20 Bed 25 Private MD: ED Physician Dank Santacruz HPI: 12/09 18:47 This 55 yrs old Male presents to ER via Wheelchair with complaints of S/S of cp Possible Stroke. 18:47 The patient's problem is reported as weakness, in the left upper extremity, in the left cp lower extremity, slurred speech. Onset: The symptoms/episode began/occurred 45 minutes prior to arrival. Duration: This was a single incident. Associated signs and symptoms: Pertinent positives: confusion, Pertinent negatives: abdominal pain, chest pain. Patient's baseline: Neuro: alert and fully oriented, Motor: no deficits, Ambulation: walks without assistance, Speech: normal. Historical: - Allergies: 18:35 PENICILLINS; ss - PMHx: 18:35 Hyperlipidemia; Hypertension; Thyroid problem; ss - PSHx: 18:35 Cholecystectomy; ss - Immunization history:: Adult Immunizations up to date. - Social history:: Smoking status: Patient denies any tobacco usage or history of. ROS: 18:49 Eyes: Negative for injury, pain, redness, and discharge. cp 18:49 Constitutional: Negative for body aches, chills, fever, poor PO intake. 18:49 Cardiovascular: Negative for chest pain. 18:49 Abdomen/GI: Negative for abdominal pain, nausea, vomiting, and diarrhea. 18:49 Neuro: Positive for speech changes, weakness, of the left arm and left leg, Negative for altered mental status, syncope. 18:49 All other systems are negative. Exam: 18:40 Radiologist reports: no acute findings cp 18:45 ECG was reviewed by the Attending Physician. cp 18:50 Head/Face: Normocephalic, atraumatic. cp 18:50 Constitutional: The patient appears in no acute distress, alert, awake, non-diaphoretic, non-toxic, well developed, well nourished. 18:50 Eyes: Periorbital structures: appear normal, Pupils: equal, round, and reactive to light and accomodation, Extraocular movements: intact throughout, Conjunctiva: normal, no exudate, no injection, Lids and lashes: appear normal, bilaterally. 18:50 ENT: External ear(s): are unremarkable, Nose: is normal, Posterior pharynx: Airway: no evidence of obstruction, patent. 18:50 Neck: ROM/movement: is normal, is supple, without pain, no range of motions limitations. 18:50 Chest/axilla: Inspection: normal, Palpation: is normal, no crepitus, no tenderness. 18:50 Respiratory: the patient does not display signs of respiratory distress, Respirations: normal, no use of accessory muscles, no retractions, labored breathing, is not present, Breath sounds: are clear throughout, no decreased breath sounds, no stridor, no wheezing. 18:50 Abdomen/GI: Inspection: abdomen appears normal, Bowel sounds: active, all quadrants, Palpation: abdomen is soft and non-tender, in all quadrants. 18:50 Neuro: Orientation: to person, place \T\ time. Mentation: able to follow commands, slow to respond, Cerebellar function: Romberg testing is abnormal, left arm, the patient is unable to track left heel to right espitia, Motor: moves all fours, strength is 4/5 in the left arm and left leg, Sensation: is normal, Gait: is unsteady. Vital Signs: 18:30 BP 140 / 95; Pulse 80; Resp 14; Pulse Ox 95% on R/A; vg1 18:30 Weight 90.26 kg; vg1 18:51 Weight 90.72 kg (R); ss 19:15 BP 124 / 86; Pulse 71; Resp 16; Pulse Ox 100% on R/A; vg1 19:20 Temp 98.1(TE); vg1 19:30 BP 132 / 83; Pulse 78; Resp 16; Pulse Ox 100% on R/A; vg1 19:45 BP 135 / 99; Pulse 76; Resp 14; Pulse Ox 100% on R/A; vg1 20:00 BP 131 / 92; Pulse 85; Resp 16; Pulse Ox 100% on R/A; vg1 20:15 BP 157 / 98; Pulse 75; Resp 16; Pulse Ox 100% on R/A; vg1 NIH Stroke Scale Scores: 18:19 NIHSS Score: 2 vg1 18:40 NIHSS Score: 3 cp MDM: 18:40 Patient medically screened. 19:18 Physician consultation: was contacted at 19:05, regarding regarding transfer, to [facility]. patient's condition, accepting physician will be DR Butler, neurologist. 19:20 Data reviewed: vital signs, nurses notes, lab test result(s), radiologic studies, CT cp scan, I have discussed the patient's presentation/case with the attending Emergency Department Physician; and as a result, I will transfer patient. 19:30 Counseling: I had a detailed discussion with the patient and/or guardian regarding: the historical points, exam findings, and any diagnostic results supporting the discharge/admit diagnosis, radiology results, the need to transfer to another facility, for higher level of care. 12/09 18:22 Order name: Basic Metabolic Panel; Complete Time: 19:00 12/09 19:01 Interpretation: Normal except: K 3.2; GFR 69. 12/09 18:22 Order name: CBC with Diff 12/09 19:01 Interpretation: Normal except: RBC 3.85; HGB 13.1; HCT 38.6; MCV 100.2; PLT 129; BASO% cp 3.8. 12/09 18:22 Order name: Protime (+inr); Complete Time: 19:00 12/09 18:22 Order name: Ptt, Activated; Complete Time: 19:00 12/09 18:44 Order name: Glucose, Ancillary Testing; Complete Time: 19:00 EDMI 12/09 19:10 Order name: Troponin I 12/09 18:22 Order name: CT Stroke Brain w/o Contrast; Complete Time: 19:00 12/09 18:22 Order name: Stroke CXR 1 View; Complete Time: 19:07 12/09 18:22 Order name: EKG; Complete Time: 18:23 12/09 18:22 Order name: Accucheck; Complete Time: 19:03 12/09 18:22 Order name: Cardiac monitoring; Complete Time: 19:03 12/09 18:22 Order name: EKG - Nurse/Tech; Complete Time: 19:03 12/09 18:22 Order name: IV Saline Lock; Complete Time: 19:03 12/09 18:22 Order name: Labs collected and sent; Complete Time: 19:03 12/09 18:22 Order name: NPO; Complete Time: 19:03 ss 12 18:22 Order name: O2 Per Protocol; Complete Time: 19:03 ss 12 18:22 Order name: O2 Sat Monitoring; Complete Time: 19:03 ss 12/09 18:22 Order name: Stroke Swallow Screen; Complete Time: 19:20 ss EC:45 Rate is 76 beats/min. QRS [place] is Normal. TN interval is normal. QRS interval is cp normal. QT interval is normal. T waves are Inverted in leads III, aVF. Interpreted by me. Reviewed by me. Administered Medications: 19:15 Drug: Alteplase (Bolus for Stroke) - Activase 0.09 mg/kg {Co-Signature: em (Melchor Kat vg1 RN).} {Note: 81 mg total dose.} Route: IV Thrombolytics; Infused Over: 1 mins; 19:19 Drug: foLIC Acid 1 mg Route: IVPB; Site: left antecubital; vg1 19:19 Drug: NS 0.9% 1000 ml Route: IV; Rate: 1 bolus; Site: left antecubital; vg1 Point of Care Testing: Blood Glucose: 18:20 Blood Glucose: 97 mg/dL; vg1 Ranges: Critical Glucose Levels:Adult <50 mg/dl or >400 mg/dl <40 mg/dl or >180 mg/dl Disposition: 12/10 06:46 Co-signature as Attending Physician, Dank Santacruz MD I agree with the assessment and emanuel plan of care. Disposition: 12/09/20 19:18 Transfer ordered to [facility]. Diagnosis are Weakness - Left Arm and Left Leg, Speech disturbances, not elsewhere classified. - Reason for transfer: Higher level of care. - Accepting physician is DR Butler. - Condition is Fair. - Problem is new. - Symptoms are unchanged. NIH Stroke Scale - NIH Stroke Score Date: 12/09/2020 Time: 18:19 Total Score = 2 1a. Level of Consciousness (LOC) - 0(Alert) 1b. Level of Consciousness (LOC) (Year \T\ Age) - 1(One) 1c. LOC Commands (Open \T\ Closes Eyes/Mold Cleaner) - 0(Both) 2. Best Gaze (Lateral Gaze Paresis) - 0(Normal) 3. Visual Field Loss - 0(No visual loss) 4. Facial Palsy - 0(Normal) 5a. Left Arm: Motor (10-second hold) - 1(Drift) 5b. Right Arm: Motor (10-second hold) - 0(No drift) 6a. Left Leg: Motor (5-second hold - always test supine) - 0(No drift) 6b. Right Leg: Motor (5-second hold - always test supine) - 0(No drift) 7. Limb Ataxia (finger/nose \T\ heel/espitia - test with eyes open) - 0(Absent) 8. Sensory Loss (pinprick arms/legs/face) - 0(Normal) 9. Best Language: Aphasia (description/naming/reading) - 0(No aphasia) 10. Dysarthria (speech clarity - read or repeat words) - 0(Normal) 11. Extinction and Inattention (visual/tactile/auditory/spatial/personal) - 0(No abnormality) Initials: vg1 NIH Stroke Scale - NIH Stroke Score Date: 12/09/2020 Time: 18:40 Total Score = 3 1a. Level of Consciousness (LOC) - 0(Alert) 1b. Level of Consciousness (LOC) (Year \T\ Age) - 0(Both) 1c. LOC Commands (Open \T\ Closes Eyes/Mold Cleaner) - 0(Both) 2. Best Gaze (Lateral Gaze Paresis) - 0(Normal) 3. Visual Field Loss - 0(No visual loss) 4. Facial Palsy - 0(Normal) 5a. Left Arm: Motor (10-second hold) - 1(Drift) 5b. Right Arm: Motor (10-second hold) - 0(No drift) 6a. Left Leg: Motor (5-second hold - always test supine) - 0(No drift) 6b. Right Leg: Motor (5-second hold - always test supine) - 0(No drift) 7. Limb Ataxia (finger/nose \T\ heel/espitia - test with eyes open) - 1(Present in one limb) 8. Sensory Loss (pinprick arms/legs/face) - 0(Normal) 9. Best Language: Aphasia (description/naming/reading) - 0(No aphasia) 10. Dysarthria (speech clarity - read or repeat words) - 1(Mild to Moderate) 11. Extinction and Inattention (visual/tactile/auditory/spatial/personal) - 0(No abnormality) Initials: cp Signatures: Dispatcher [employer] Nadeem Brandon RN RN sg Dank Santacruz MD MD cha Smirch, Shelby RN RN ss Dank Barbosa PA PA cp Tyra James, RN RN vg1 Melchor Kat RN em Corrections: (The following items were deleted from the chart) 12/09 19:01 19:01 Normal except: RBC 3.85; HGB 13.1; HCT 38.6; MCV 100.2; PLT 129. cp cp 20:21 19:18 12/09/2020 19:18 Transfer ordered to [facility]. Diagnosis sg is Weakness - Left Arm and Left Leg; Speech disturbances, not elsewhere classified. Reason for transfer: Higher level of care. Accepting physician is DR Butler. Condition is Fair. Problem is new. Symptoms are unchanged. cp
[2020-12-09] MEDS ORDERED: FOLIC ACID 5 MG/ML VIAL ONE (19:32)
[2020-12-09] MEDS ORDERED: NA CHLORIDE 0.9% 1,000 ML ONE (19:33)
[2020-12-09 20:28] VITALS: BP 140/95; O2SAT 95
[2020-12-09 20:29] VITALS: TEMP 98.1
[2020-12-09 21:59] LABS: Blood Morphology Comment NOT SEEN (NOT SEEN); Platelet Estimate DECR
--- NOTE | 2020-12-10 06:09 | EKG ---
Test Date: 2020-12-09 Test Time: 18:36:24 Supplier Quality Manager: ANDRIY MEASUREMENT RESULTS: Intervals: Rate: 76 DE: 148 QRSD: 94 QT: 416 QTc: 468 [place]: P: 42 DE: 148 QRS: 33 T: -27 INTERPRETIVE STATEMENTS: Normal sinus rhythm Cannot rule out Anterior infarct, age undetermined ST & T wave abnormality, consider inferior ischemia Abnormal ECG Compared to ECG 03/29/2020 07:35:37 Myocardial infarct finding now present Possible ischemia now present Sinus tachycardia no longer present ST (T wave) deviation still present Electronically Signed On 12-10-20 06:08:53 GRANULATING MACHINE OPERATOR by Binh Lan
== END 2020-12-09 20:21 | disposition short-term general hospital (02) ==
LOC: ER 18:19
DX: R47.81 Slurred speech (principal); R29.703 NIHSS score 3; I10 Essential (primary) hypertension; Z88.0 Allergy status to penicillin
CPT/HCPCS: 92977; 93005; 85025; 80048; 36415; 85610; 82947; 85730; 84484; 70450; 71045; 96374; 99285; J2997; J7050; J7030

== ENCOUNTER 2021-01-07 14:39 | Emergency (ER) | payer OTHER ==
--- NOTE | 2021-01-07 15:25 | RAD REPORT ---
EXAM DESCRIPTION: CT - Head C Spine Mpr Wo Con - 01/07/2021 3:11 pm CLINICAL HISTORY: Head and neck injury status post fall. Head and neck pain. Syncope COMPARISON: November [address] TECHNIQUE: Computed axial tomography of the head and cervical spine was obtained. Sagittal and coronal reconstruction was performed. All CT scans are performed using dose optimization technique as appropriate and may include automated exposure control or mA/KV adjustment according to patient size. FINDINGS: An intracranial bleed is not seen. The ventricles are normal in caliber. An extra-axial fl uid collection is not noted.Fluid within the visualized sinuses and mastoids is not seen A cervical fracture is not visualized. No dislocation is noted. Spondylosis involves the cervical spi ne IMPRESSION: No acute intracranial abnormality is seen. A cervical fracture is not visualized. If the patient continues to have symptoms to suggest intracra nial /spinal cord pathology then MRI would be recommended
[2021-01-07 15:40] LABS: Urine Blood NEGATIVE (NEG); Urine Glucose NEGATIVE (NEG); Urine Protein NEGATIVE (NEG); Urine pH 5.5 (5.0-7.0)
[2021-01-07 15:42] LABS: Urine Bacteria NONE SEEN /HPF (NONE SEEN); Urine RBC NONE SEEN /HPF (NONE SEEN)
[2021-01-07 15:47] LABS: Barbiturates NEGATIVE (NEGATIVE); Benzodiazepines NEGATIVE (NEGATIVE); Cocaine NEGATIVE (NEGATIVE); METHAMPHETAM NEGATIVE (NEGATIVE); Methadone NEGATIVE (NEGATIVE); Opiates NEGATIVE (NEGATIVE); Phencyclidine NEGATIVE (NEGATIVE); THC Cannibis NEGATIVE (NEGATIVE)
[2021-01-07 16:13] LABS: Absolute Lymphocytes (CBC) 1.5 K/uL (0.7-4.9); Basophils % 0.2 % (0-1.3); Hematocrit 41.5 % (39.6-49.0); Lymphocytes % 29.6 % (15.3-44.8); RBC Red Blood Cell Count 4.01 M/uL (4.33-5.43)
[2021-01-07 16:22] LABS: Protime INR 1.03
[2021-01-07 16:29] LABS: ALT/SGPT 122 U/L (12-78); AST/SGOT 193 U/L (15-37); Albumin 3.8 g/dL (3.4-5.0); Alkaline Phosphatase 190 U/L (45-117); BUN Blood Urea Nitrogen 8 mg/dL (7-18); Bicarbonate 30 mmol/L (21-32); Bilirubin Direct 0.4 mg/dL (0-0.2); Bilirubin Total 0.6 mg/dL (0.2-1.0); Glucose Level 105 mg/dL (74-106); Magnesium 2.2 mg/dL (1.8-2.4); NT PRO-BNP 20 pg/mL (<125); Potassium 3.6 mmol/L (3.5-5.1); Protein, Total 8.2 g/dL (6.4-8.2); Sodium Level 146 mmol/L (136-145); Troponin (Emerg Dept Use Only) < 0.02 ng/mL (0.0-0.045)
--- NOTE | 2021-01-07 16:32 | RAD REPORT ---
EXAM DESCRIPTION: [place] Single View01/07/2021 3:32 pm CLINICAL HISTORY: Hypertension/syncope COMPARISON: November 2020 FINDINGS: The lungs appear clear of acute infiltrate. The heart is normal size IMPRESSION: No acute abnormalities displayed
[2021-01-07] MEDS ORDERED: NA CHLORIDE 0.9% 1,000 ML ONE (16:48)
--- OUTSIDE RECORDS SUMMARY | 2021-01-07 17:43 | XMS REPORT | Clinical Summary ---
:1965 Author Organization [facility] Address [address] [place] [address] Care Team Providers Name Role Phone Unavailable [...] Gastroenterology Watters, MD Kiran Bishop, Cherelle Wise, GEOLOGIST PETROLEUM 04/21/2020 Travel 04/20/2020 - Hospital General Internal Zofia, Serge, Biliary 04/23/2020 Encounter Medicine MD remedios headley after 01/07/2020 Social History Tobacco Use Types Packs/Day Years [...] SCREENING (12+) 11/28/2020 Implants Implanted Type Area Bleach Supervisor Device Shelf Model / Identifier Expiration Date Ser ial / Lot Stent Bili Duodenal [id number] - [id number] IMPLANTS JEFFRY STON SCI:ENDO [id number] / Implanted: Qty: 1 on 04/21/2020 by Freddie Brennan MD at [facility] / Procedures Procedure Name Priority Date/Time Associated [...] are i n the results section. after 01/07/2020 Results US paracentesis (04/23/2020 2:47 PM CDT) Specimen Narrative Performed At FINAL REPORT [facility] Ultrasound guided paracentesis Clinical History: Ascites. Sedation: None. Window [place]ade Ring Coverer: Audrey Becerra PA-C Supervising Physician: Kvng Stevenson MD Galvanometer Assembler: None. Estimated Blood Loss: < 1 mL. [...] anesthesia was achieved with lidocaine, a 5 Egyptian one-step catheter was advanced into the peritoneal cavity under ultrasound guidance. After completion of drainage, the cathet er was removed. There was no evidence of complication. Impression: Successful ultrasound guided paracentesi s. Signed: Kvng Stevenson MD Report Verified Date/Time: 04/25/2020 09:48:02 Reading Location: [facility] [id number] [facility] Reading Room Procedure Note Interface, External Ris In - 04/25/2020 9:50 AM CDT FINAL REPORT Ultrasound guided paracentesis Clinical History: Ascites. Sedation: None. Window Shade Ring Coverer: Audrey Becerra PA-C Supervising Physician: Kvng Stevenson MD Galvanometer Assembler: None. Estimated Blood Loss: < 1 mL. [...] anesthesia was achieved with lidocaine, a 5 Egyptian one-step catheter was advanced into the peritoneal cavity under ultrasound guidance. After completion of drainage, the cathet er was removed. There was no evidence of complication. Impression: Successful ultrasound guided paracentesi s. Signed: Kvng Stevenson MD Report Verified Date/Time: 04/25/2020 0 9:48:02 Reading Location: [facility] [id number] [facility] Reading Room Performing Organization Address City/State/[facility] Phone Number [facility] PT/aPTT (04/23/2020 10:19 AM CDT)Only the most recent of3 resultswithin the time period is included. Pathologist Sig nature Protime 16.8 (H) 11.9 - 14.2 seconds [facility] INR 1.4 <=5.9 [facility] PTT 43.8 (H) 22.5 - 36.0 seconds [facility] Specimen Blood Narrative Performed At Effective 04/25/2019: PT Reference Range [facility] Change New: 11.9-14.2 Previous: 11.7-14.7 RECOMMENDED COUMADIN/WARFARIN INR THERAPY RANGES STANDARD DOSE: 2.0-3.0 Includes: PROPHYLAXIS for venous thrombosis, systemic embolization; TREATMENT for venous thrombosis and/or pulmonary embolus. HIGH RISK: Target INR is 2.5-3.5 for patients wiht mechanical heart valves. Performing Organization Address City/State/Zipcode Phone Number [facility] [address] [place] [address] CENTER CBC with platelet count + automated diff (04/23/2020 10:19 AM CDT)Only the most recent of2 resultswithin the time period is included. Pathologist Sig nature WBC 8.0 3.5 - 10.5 [facility] K/L [facility] RBC 3.17 (L) 4.63 - 6.08 [facility] M/L [facility] Hemoglobin 10.4 (L) 13.7 - 17.5 [facility] GM/DL [facility] Hematocrit 32.4 (L) 40.1 - 51.0 % [facility] MCV 102.2 (H) 79.0 - 92.2 fL [facility] MCH 32.8 (H) 25.7 - 32.2 pg [facility] MCHC 32.1 (L) 32.3 - 36.5 [facility] GM/DL [facility] RDW 14.0 11.6 - 14.4 % [facility] Platelets 212 150 - 450 K/CU [facility] MPV 10.8 9.4 - 12.4 fL [facility] nRBC 0 0 - 0 /100 WBC [facility] % Neutros 78 % [facility] % Lymphs 8 % [facility] % Monos 9 % [facility] % Eos 3 % [facility] % Baso 1 % [facility] # Neutros 6.22 (H) 1.78 - 5.38 [facility] # Lymphs 0.65 (L) 1.32 - 3.57 [facility] # Monos 0.73 0.30 - 0.82 [facility] # Eos 0.22 0.04 - 0.54 [facility]/L [facility] # Baso 0.07 0.01 - 0.08 [facility] Immature 1 0 - 1 % [facility] Granulocytes-Relativ [facility] Specimen Blood Performing Organization Address City/[facility]/Zipcode Phone Number [facility] [address] [place] [address] [place] Basic metabolic panel (04/23/2020 4:23 AM CDT)Only the most recent of3 results within the time period is included. Sodium 139 136 - 145 meq/L [facility] Potassium 4.2 3.5 - 5.1 meq/L [facility] Chloride 108 (H) 98 - 107 meq/L [facility] CO2 28 22 - 29 meq/L [facility] BUN 9 7 - 21 mg/dL [facility] Creatinine 0.77 0.57 - 1.25 [facility] mg/dL [facility] Glucose 102 70 - 105 mg/dL [facility] Calcium 8.4 8.4 - 10.2 [facility] mg/dL [facility] EGFR 106Comment: mL/min/1.73 sq [facility] ESTIMATED GFR IS NOT [facility] ACCURATE CENTER CREATININE CLEARANCE IN PREDICTING GLOMERULAR FILTRATION RATE. ESTIMATED GFR IS NOT APPLICABLE FOR DIALYSIS PATIENTS. Specimen Blood Narrative Performed At [place] Utility Worker ID - PIAYA L [facility] Performing Organization Address City/[facility]/Zipcode Phone Number [facility] [address] [place] [address] abdomen/pelvis with IV contrast (04/22/2020 5:51 PM CDT) Specimen Narrative Performed At FINAL REPORT [facility] TECHNIQUE: CT of the abdomen and pelvis [...] Report Verified Date/Time: 04/22/2020 19:21:15 Reading Location: [facility] C013Y CT Body R [facility] Room Procedure Note Interface, External Ris In [...] Report Verified Date/Time: 04/22/2020 9:21:15 Reading Location: [facility] B1 C013Y CT Body R eading Room Performing Organization Address City/State/Zipcode Phone Number [facility] Vancomycin level, trough (04/22/2020 1:55 PM CDT) Pathologist Sig nature Vancomycin Tr 11.5 10.0 - 20.0 ug/mL [facility] Specimen Blood Narrative Performed At [place] Utility Worker ID - BS [facility] Performing Organization Address City/State/Zipcode Phone Number [facility] [address] [place] [address] CENTER Phosphorus (04/22/2020 4:15 AM CDT)Only the most recent of2 resultswithin the time period is included. Pathologist Sig nature Phosphorus 3.4 2.3 - 4.7 mg/dL [facility] Specimen Blood Narrative Performed At [place] Utility Worker ID - [facility] Performing Organization Address City/State/Zipcode Phone Number [address] [address] CENTER Magnesium (04/22/2020 4:15 AM CDT)Only the most recent of2 resultswithin the time period is included. Pathologist Sig nature Magnesium 1.9 1.6 - 2.6 mg/dL [facility] Specimen Blood Narrative Performed At [place] Utility Worker [place] - [facility] Performing Organization Address City/[facility]/Zipcode Phone Number [address] [address] [place] Hepatic function panel (04/22/2020 4:15 AM CDT)Only the most recent of2 results within the time period is included. Pathologist Sig nature Protein, Total 5.7 (L) 6.0 - 8.3 gm/dL [facility] Albumin 3.0 (L) 3.5 - 5.0 g/dL [facility] Total Bilirubin 0.5 0.2 - 1.2 mg/dL [facility] Bilirubin, Direct 0.4 0.1 - 0.5 mg/dL [facility] Alkaline Phosphatase 240 (H) 40 - 150 U/L [facility] AST 71 (H) 5 - 34 U/L [facility] ALT 26 6 - 55 U/L [facility] Specimen Blood Narrative Performed At [place] Utility Worker [facility] Performing Organization Address City/[facility]/Zipcode Phone Number [address] [address] [place] ERCP (04/21/2020 1:15 PM CDT) Specimen Narrative Performed At FINAL REPORT [facility] A fluoroscopic unit was utilized for a p rocedure performed in the operating room. No interpretation was re quested. Please refer to the operative report regarding findings. Ple ase refer to PACS for patient radiation dose information. Signed: Gage Sinha MD Report Verified Date/Time: 04/21/2020 14:36:55 Reading Location: [facility] B1 C013Y CT Body R eading [...] Verified Date/Time: 04/21/2020 1 4:36:55 Reading Location: [facility] B1 C013Y CT Body R eading Room Performing Organization Address City/State/[facility] Phone Number RIS REPORT OF PROCEDURE - ENDOSCOPY URL (04/21/2020 1:14 PM CDT) Narrative Performed At This result has an attachment that is no t available. after 01/07/2020 (Home) [place] [address] Advance Directives For more information, please contact: [phone] Code Status Date Activated Date Inactivated Comments Full Code 04/21/2020 1:25 AM 04/24/2020 12:47 AM This code status was determined by: Patient
--- OUTSIDE RECORDS SUMMARY | 2021-01-07 17:44 | XMS REPORT | Continuity of Care Document ---
:1965 Author Organization [facility] t Address [address] [place] [phone] Care Team Providers Name Role Phone David SMITH Attending Clinician Crystal SMITH Attending Clinician Abdirahman Watters MD Attending Clinician Billie Beck CRNA Attending Clinician DAVID Attending Clinician Unavailable DAVID Admitting Clinician Unavailable Payers Payer Name Policy Type Policy Effective Date Expiration Date Sour Number AMBETTERAMBETTER [id number] [facility] -Present Center Problems Condition Condition Condition Status Onset Resolution Last Treating Co mments Source Name Details Category Date Date Treatment Clinician Date Biliary Biliary Disease Active [facility] 04-21 Yolie kes - c leak c leak 00:00: Medical 00 Center Allergies, Adverse Reactions, Alerts Allergy Allergy Status Severity Reaction(s) Onset Inactive Treating Comm ents Source Name Type Date Date Clinician Penicill Propensi Active Other (See [facility] Comments) 04-21 [facility] - adverse 00:00: Medical reaction 00 Center s Social History Social Habit Start Date Stop Date Quantity Comments Source History SDOH [facility] - Alcohol Std Drinks Medica l Center History SDOH [facility] - Alcohol Binge Medical Sweta ter Sex Assigned At [facility] Alcohol intake 2020-04-22 2020[facility]04-22 [facility] non-drinker of Medical Ce nter alcohol (finding) Tobacco use and 2020-04-22 2020-04-[address] [facility] [address] Yolie kes - exposure 00:00:00 00:00:00 Medical Center History SDOH 2020-04-21 2020-04-[address] [facility] - Alcohol Frequency 00:00:00 00:00:00 Medical Center Smoking Status Start Date [...] .4mg QD Take [address] [facility] (FLOMAX) - 06-26 capsule [facility] - 0.4 mg Cap 00:00: 23:59 (0.4 mg Med ical 24 hr 00 :00 total) by Center capsule mouth daily for 30 days. tamsulosin 2019- 2020- No .4mg QD Take [address] [facility] (FLOMAX) -26 05-27 capsule [facility] - 0.4 mg Cap 00:00: 00:00 (0.4 mg Med ical 24 hr 00 :00 total) by Center capsule mouth daily for 30 days. Vital Signs Vital Name Observation Time Observation Value Comments Source Systolic blood 2020-04-23 15:50:00 123 mm[Hg] [facility] Diastolic blood 2020-04-23 15:50:00 76 mm[Hg] [facility] Heart rate 2020-04-23 15:50:00 78 /min [facility] Body temperature 2020-04-23 15:50:00 36.56 Fani [facility] Respiratory rate 2020-04-23 15:50:00 16 /min [facility] Oxygen saturation in 2020-04-23 15:50:00 100 /min [facility] Arterial blood by Medical Ce nter Pulse oximetry Body height 2020-04-21 00:26:00 177.8 cm [facility] Body weight 2020-04-21 00:26:00 103.4 kg [facility] BMI 2020-04-21 00:26:00 32.71 kg/m2 [facility] Procedures Procedure Date / Time Performed Performing Clinician [facility] e US PARACENTESIS 2020-04-23 14:47:00 Apolonia Fernando [facility] CBC W/PLT COUNT & AUTO 2020-04-23 10:19:00 Serge Armijo [facility] PT/APTT 2020-04-23 10:19:00 Serge Armijo [facility] BASIC METABOLIC PANEL 2020-04-23 04:23:00 Melissa Kern [facility] () [facility] CT ABDOMEN/PELVIS WITH 2020-04-22 17:51:00 Serge Armijo [facility] Arnaldo [facility] IV CONTRAST [facility] VANCOMYCIN LEVEL, TROUGH 2020-04-22 13:55:00 Thang Krishnamurthy [facility] BASIC METABOLIC PANEL 2020-04-22 04:15:00 Melissa Kern [facility] () [facility] PT/APTT 2020-04-22 04:15:00 Erlin, [facility] MAGNESIUM 2020-04-22 04:15:00 [facility] PHOSPHORUS 2020-04-22 04:15:00 [facility] HEPATIC FUNCTION PANEL 2020-04-22 04:15:00 [facility] [place] ERCP 2020-04-21 13:15:00 Crystal [facility] REPORT OF PROCEDURE - 2020-04-21 13:14:[address] [facility] ENDOSCOPY [facility] ERCP,BILIARY STENT 2020-04-21 13:00:00 Crystal [facility] PROCEDURE W/ C-ARM 2020-04-21 13:00:00 Crystal [facility] BASIC METABOLIC PANEL 2020-04-21 04:29:00 [facility] () [facility] PT/APTT 2020-04-21 04:29:00 [facility] MAGNESIUM 2020-04-21 04:29:00 [facility] PHOSPHORUS 2020-04-21 04:29:00 [facility] HEPATIC FUNCTION PANEL 2020-04-21 04:29:00 [facility] CBC W/PLT COUNT & AUTO 2020-04-21 04:29:00 [facility] Plan of Care Planned Activity Planned Date Details Comments Source Future Scheduled 2020-11-[address] [facility] - Test 00:00:00 (12+) [code = [facility] DEPRESSION SCREENING (12+)] Future Scheduled 2020-07-[address] [facility] - Test 00:00:00 (#1) [code = [facility] INFLUENZA VACCINE (#1)] Future Scheduled [address] - Test 00:00:00 (procedure) [code = [facility] 02555778] Future Scheduled [address] [facility] - Test 00:00:00 malignant neoplasm of Medica l Center colon (procedure) [code = 969048082] Results Test Description Test Time Test Comments Results Result [facility] e Comments U/S, PARACENTESIS 2020-03-29 Labs to be FINAL REPORT 9 ordered:->No Labs PATIENT ID: [id number] NeededReason for [id number] Ultrasound exam:->concern guided paracentesis for bilious Clinical History: ascites, please Ascites. Sedation: tap and place None. intra-abdominalSh [employer] Contact Printer: ould this be Audrey Becerra, performed at the PA-C Supervising bedside?->Yes Physician: Kvng Stevenson MD Type Inspector: None. Estimated Blood Loss: < 1 mL. [...] anesthesia was achieved with lidocaine, a 5 Solomon Islander one-step catheter was advanced into the peritoneal cavity under ultrasound guidance. After completion of drainage, the catheter was removed. There was no evidence of complication. Impression:Successf ul ultrasound guided paracentesis. Signed: Kvng Stevenson MDReport Verified Date/Time: 04/25/2020 09:48:02 Reading Location: [address] Ultrasound Reading Room paracentesis 2020-03-29 Interface, External [facility] St 9 [facility] In - 04/25/2020 [facility] - 09:48:00 9:50 AM CDTFINAL Medical REPORT PATIENT ID: Center [id number] Ultrasound guided paracentesis Clinical History: Ascites. Sedation: None. [employer] Contact Printer: Audrey Becerra PA-C Supervising Physician: Kvng Stevenson MD Type Inspector: None. Estimated Blood Loss: < 1 mL. [...] anesthesia was achieved with lidocaine, a 5 [place] Islander one-step catheter was advanced into the peritoneal cavity under ultrasound guidance. After completion of drainage, the catheter was removed. There was no evidence of complication. Impression:Successf ul ultrasound guided paracentesis. Signed: Kvng Stevenson Verified Date/Time: 04/25/2020 09:48:02 Reading Location: [facility] P006J Ultrasound Reading Room /aPTT 2020-04-23 10:43:00 Test Item Value Reference Range Interpretation Comme nts Protime (test code = 16.8 See_Comment H [Autom ated message] The 5902-2) system which [employer] nerated this result tra nsmitted reference range : 11.9 - 14.2 seconds. T he reference range was not used to interpr et this result as normal/abnormal . INR (test code = 1.4 See_Comment [Automated message] The 6301-6) system which [employer] nerated this result tra nsmitted reference range : <=5.9. The reference r andrade was not used to int erpret this result as normal/abnormal . PTT (test code = 43.8 See_Comment H [Automated message] The 67626-7) system which [employer] nerated this result tra nsmitted reference range : 22.5 - 36.0 seconds. T he reference range was not used to interpr et this result as normal/abnormal . CHRIS (test code = CHRIS) Effective 04/25/2019: PT Reference Range ChangeNew: 11.9-14.2 Previous: 11.7-14.7 RECOMMENDED COUMADIN/WARFARIN INR THERAPY RANGESSTANDARD DOSE: 2.0-3.0 Includes: PROPHYLAXIS for venous thrombosis, systemic embolization; TREATMENT for venous thrombosis and/or pulmonary embolus.HIGH RISK: Target INR is 2.5-3.5 for patients wiht mechanical heart valves. Lab Interpretation Abnormal (test code = 14698-0) [id number] 10:43:00 Test Item Value Reference Range Interpretation [...] heart valves.CBC with platelet count + automated [id number] 10:42:00 Test Item Value Reference Range Interpretation Comments WBC (test code = 6690-2) 8.0 See_Comment [A utomated message] The system [employer] generated this result transmitted ref erence range: 3.5 - 10 .5 K/L. The refe rence range was not u sed to interpret this result as normal/abnor mal. RBC (test code = 789-8) 3.17 See_Comment L [Au tomated message] The system [employer] generated this result transmitted ref erence range: 4.63 - 6 .08 M/L. The refe rence range was not u sed to interpret this result as normal/abnor mal. MCHC (test code = 786-4) 32.1 See_Comment L [A utomated message] The system [employer] generated this result transmitted ref erence range: 32.3 - 3 6.5 GM/DL. The refe rence range was not u sed to interpret this result as normal/abnor mal. Hematocrit (test code = 32.4 % 40.1-51 L 4544-3) MCV (test code = 787-2) 102.2 fL 79-92.2 H MCH (test code = 785-6) 32.8 pg 25.7-32.2 H RDW (test code = 788-0) 14.0 % 11.6-14.4 Platelets (test code = 212 See_Comment [Aut omated message] 777-3) The system [employer] generated this result transmitted ref erence range: 150 - 45 0 K/CU MM. The referen ce range was not u sed to interpret this result as normal/abnor mal. MPV (test code = 10.8 fL 9.4-12.4 13689-8) nRBC (test code = 413) 0 See_Comment [Aut omated message] The system [employer] generated this result transmitted ref erence range: 0 - 0 /1 00 WBC. The refere nce range was not u sed to interpret this result as normal/abnor mal. % Neutros (test code = 78 % 429) % Lymphs (test code = 8 % 430) % Monos (test code = 9 % 431) % Eos (test code = 432) 3 % % Baso (test code = 437) 1 % # Neutros (test code = 6.22 See_Comment H [Aut omated message] 670) The system [employer] generated this result transmitted ref erence range: 1.78 - 5 .38 K/L. The refe rence range was not u sed to interpret this result as normal/abnor mal. # Lymphs (test code = 0.65 See_Comment L [Auto mated message] 414) The system [employer] generated this result transmitted ref erence range: 1.32 - 3 .57 K/L. The refe rence range was not u sed to interpret this result as normal/abnor mal. # Monos (test code = 0.73 See_Comment [Autom ated message] 415) The system [employer] generated this result transmitted ref erence range: 0.30 - 0 .82 K/L. The refe rence range was not u sed to interpret this result as normal/abnor mal. # Eos (test code = 416) 0.22 See_Comment [Au tomated message] The system [employer] generated this result transmitted ref erence range: 0.04 - 0 .54 K/L. The refe rence range was not u sed to interpret this result as normal/abnor mal. # Baso (test code = 417) 0.07 See_Comment [A utomated message] The system [employer] generated this result transmitted ref erence range: 0.01 - 0 .08 K/L. The refe rence range was not u sed to interpret this result as normal/abnor mal. Immature 1 % 0-1 Granulocytes-Relative (test code = 2801) Lab Interpretation (test Abnormal code = 18538-1) [facility] W/PLT COUNT & AUTO [id number] 10:42:00 Test Item Value Reference Range Interpretation [...] (BEAKER) (test code = 2801) Basic metabolic [id number] 05:55:00 Test Item Value Reference Range Interpretation Comments Sodium (test code = 139 meq/L 570-321 5895-2) Potassium (test code = 4.2 meq/L 3.5-5.1 2823-3) Chloride (test code = 108 meq/L 98-107 H 5-0) CO2 (test code = 28 meq/L 22-29 2028-9) BUN (test code = 9 mg/dL 7-21 3094-0) Creatinine (test code 0.77 mg/dL 0.57-1.25 = 2160-0) Glucose (test code = 102 mg/dL 70-105 2345-7) Calcium (test code = 8.4 mg/dL 8.4-10.2 91944-2) EGFR (test code = 106 mL/min/1.73 sq [place] [address]-5) NOT ACCURATE CREATININE CLEARANCE IN PREDICTING GLOMERULAR FILTRATION RATE . ESTIMATED GFR I S NOT APPLICABLE FOR DIALYSIS PATIENTS. CHRIS (test code = CHRIS) Audio Video Technician ID - PIAYA L Lab Interpretation Abnormal (test code = 53819-6) [facility] METABOLIC [id number] 05:55:00 Test Item Value Reference Range Interpretation [...] mg/dL 8.4-10.2 (test code = 697) EGFR (BEAKER) (test 106 mL/min/1.73 ESTIM ATED GFR IS code = 1092) sq m NOT ACCURATE CREATININE CLEARANCE IN PREDICTING GLOMERULAR FILTRATION RATE . ESTIMATED GFR I S NOT APPLICABLE FOR DIALYSIS PATIEN TS. Audio Video Technician ID - JESSICAAYA HIT, [id number] 19:21:00FINAL REPORT TECHNIQUE: CT of the abdomen [...] MDReport Verified Date/Time: 04/22/2020 19:21:15 Reading Location: [facility] C013Y CT Body Reading Room CT abdomen/pelvis with IV [id number] 19:21:00Interface, External Ris In - 04/22/2020 7:24 [...] Trace right-sided pleural effusion. Signed: Teena Bui MDRlorenaort Verified Date/Time: 04/22/2020 19:21:15 Reading Location: [facility] B1 C013Y CT [facility], [id number] 14:50:00 Test Item Value Reference Range Interpretation Comments Vancomycin Tr (test code = 11.5 ug/mL 10-20 4092-3) CHRIS (test code = CHRIS) Audio Video Technician ID - BS Lab Interpretation (test Normal code = 68562-4) [facility], [id number] 14:50:00 Test Item Value Reference Range Interpretation Comments VANCOMYCIN TROUGH (BEAKER) (test 11.5 ug/mL 10.0-20.0 code = 522) Audio Video Technician ID - BSHepatic function [id number] 05:22:00 Test Item Value Reference Range Interpretation Comments Protein, Total (test 5.7 See_Comment L [Autom ated code = 2885-2) message] The system which generated this result transmit dov reference range : 6.0 - 8.3 gm/dL . The reference range was not u sed to interpret th is result as normal/abnormal . Albumin (test code = 3.0 g/dL 3.5-5 L 70790-9) Total Bilirubin (test 0.5 mg/dL 0.2-1.2 code = 1975-2) Bilirubin, Direct 0.4 mg/dL 0.1-0.5 (test code = 1968-7) Alkaline Phosphatase 240 U/L 40-150 H (test code = 6768-6) AST (test code = 71 U/L 5-34 H 1920-8) ALT (test code = 26 U/L 6-55 1742-6) CHRIS (test code = CHRIS) Audio Video Technician ID - [place] Lab Interpretation Abnormal (test code = 96384-4) [facility]esium2020-[facility] 05:22:00 Test Item Value Reference Range Interpretation Comments Magnesium (test code = 1.9 mg/dL 1.6-2.6 86808-1) CHRIS (test code = CHRIS) Audio Video Technician ID - LA Lab Interpretation (test Normal code = 18244-9) [facility]2020-[facility] 05:22:00 Test Item Value Reference Range Interpretation Comments Phosphorus (test code = 3.4 mg/dL 2.3-4.7 2777-1) CHRIS (test code = CHRIS) Audio Video Technician ID - [place] Lab Interpretation (test Normal code = 35218-5) [facility]2020-05-26 05:22:00 Test Item Value Reference Range Interpretation Comments PHOSPHORUS (BEAKER) (test code = 3.4 mg/dL 2.3-4.7 604) Audio Video Technician ID - [id number] 05:22:00 Test Item Value Reference Range Interpretation Comments MAGNESIUM (BEAKER) (test code = 1.9 mg/dL 1.6-2.6 627) Audio Video Technician ID - LABASIC METABOLIC [id number] 05:22:00 Test Item Value Reference Range Interpretation [...] S NOT APPLICABLE FOR DIALYSIS PATIEN TS. Audio Video Technician ID - LAHEPATIC FUNCTION [id number] 05:22:00 Test Item Value Reference Range Interpretation [...] (test code = 26 U/L 6-55 347) Audio Video Technician ID - [id number] 05:05:00 Test Item Value Reference Range Interpretation [...] INR is2.5-3.5 for patients wiht mechanical heart valves.OH, [id number] 14:36:00Reason for exam:->CBD stonesFINAL REPORT A fluoroscopic unit was utilized for a procedure performed in the operating room. No interpretation was requested. Please refer to the operative report regarding findings. Please refer to PACS for patient radiation dose information. Signed: Gage Sinha Verified Date/Time: 04/21/2020 14:36:55 Reading Location: [facility] C013Y CT Body Reading Room Y [facility] [id number] 14:36:00Interface, External Ris In - 04/21/2020 2:39 PM CDTFINAL REPORT A fluoroscopic unit was utilized for a procedure performed in the operating room. No interpretation was requested. Please refer to the operative report regarding findings. Please refer to PACS for patient radiationdose information. Signed: Gage Sinha Verified Date/Time: 04/21/2020 14:36:55 Reading Location: [facility] C013Y CT Body Reading Room [facility]2020-05-25 05:58:00 Test Item Value Reference Range Interpretation Comments PHOSPHORUS (BEAKER) (test code = 3.4 mg/dL 2.3-4.7 604) Audio Video Technician ID - NEEMA [id number] 05:58:00 Test Item Value Reference Range Interpretation Comments MAGNESIUM (BEAKER) (test code = 2.0 mg/dL 1.6-2.6 627) Audio Video Technician ID - NEEMA MBASIC METABOLIC [id number] 05:58:00 Test Item Value Reference Range Interpretation [...] S NOT APPLICABLE FOR DIALYSIS PATIEN TS. Audio Video Technician ID - NEEMA EPATIC FUNCTION [id number] 05:58:00 Test Item Value Reference Range Interpretation [...] (test code = 26 U/L 6-55 347) Audio Video Technician ID - NEEMA [id number] 05:39:00 Test Item Value Reference Range Interpretation [...] mechanical heart valves.CBC W/PLT COUNT & AUTO [id number] 05:20:00 Test Item Value Reference Range Interpretation [...] % 0-1 PERCENT (BEAKER) (test code = 7560)
[2021-01-07] MEDS ORDERED: NA CHLORIDE 0.9% 2,000 ML ONE (19:18)
--- NOTE | 2021-01-07 21:52 | EDPHYS ---
Physician Documentation [facility] Name: Koko Iniguez Age: 55 yrs Sex: Male : 1965 Arrival Date: 01/07/2021 Time: 14:50 Bed 17 Private MD: ED Physician Chris Craig HPI: 01/07 15:00 This 55 yrs old Male presents to ER via EMS with complaints of Syncope. cp 15:00 loss of consciousness. Onset: The symptoms/episode began/occurred just prior to cp arrival. Duration: This was a single episode, that lasted an unknown period of time. Context: occurred at home, Just prior to the episode the patient experienced no apparent symptoms. Associated injury: The patient did not suffer any apparent associated injury. Associated signs and symptoms: Pertinent positives: confusion, Pertinent negatives: abdominal pain, chest pain, diaphoresis. Current symptoms: confusion. Historical: - Allergies: 15:01 PENICILLINS; zb - PMHx: 15:01 Hyperlipidemia; Hypertension; Thyroid problem; zb - PSHx: 15:01 Cholecystectomy; zb - Immunization history:: Adult Immunizations up to date. - Social history:: Smoking status: Patient denies any tobacco usage or history of. ROS: 15:05 Constitutional: Negative for body aches, chills, fever, poor PO intake. cp 15:05 Eyes: Negative for injury, pain, redness, and discharge. cp 15:05 ENT: Negative for ear pain, sore throat, difficulty swallowing, difficulty handling secretions. 15:05 Cardiovascular: Negative for chest pain, edema, palpitations. 15:05 Respiratory: Negative for cough, shortness of breath, wheezing. 15:05 Abdomen/GI: Negative for abdominal pain, nausea, vomiting, and diarrhea, constipation, black/tarry stool, rectal bleeding. 15:05 Back: Negative for pain at rest, pain with movement. 15:05 Skin: Negative for rash. 15:05 Neuro: Positive for altered mental status, loss of consciousness, Negative for headache, seizure activity, weakness. 15:05 All other systems are negative. Exam: 15:03 ECG was reviewed by the Attending Physician. cp 15:07 Constitutional: The patient appears in no acute distress, alert, awake, comfortable, cp non-diaphoretic, non-toxic, well developed, well nourished. 15:07 Head/face: Noted is abrasion(s), that are mild, of the forehead. cp 15:07 Eyes: Periorbital structures: appear normal, Pupils: equal, round, and reactive to light and accomodation, Extraocular movements: intact throughout, Conjunctiva: normal, no exudate, no injection, Sclera: no appreciated abnormality, Lids and lashes: appear normal, bilaterally. 15:07 ENT: External ear(s): are unremarkable, Ear canal(s): are normal, clear, TM's: dullness, bilaterally, Nose: is normal, Mouth: Lips: moist, Oral mucosa: pink and intact, moist, Posterior pharynx: Airway: no evidence of obstruction, patent. 15:07 Neck: C-spine: vertebral tenderness, is not appreciated, crepitus, is not appreciated, ROM/movement: is normal, is supple, without pain, no range of motions limitations, nuchal rigidity, is not appreciated. 15:07 Chest/axilla: Inspection: normal, Palpation: is normal, no crepitus, no tenderness. 15:07 Cardiovascular: Rate: normal, Rhythm: regular, Heart sounds: murmur, not appreciated, Edema: is not appreciated, JVD: is not appreciated. 15:07 Respiratory: the patient does not display signs of respiratory distress, Respirations: normal, no use of accessory muscles, no retractions, labored breathing, is not present, Breath sounds: are clear throughout, no decreased breath sounds, no stridor, no wheezing. 15:07 Abdomen/GI: Inspection: abdomen appears normal, Bowel sounds: active, all quadrants, Palpation: abdomen is soft and non-tender, in all quadrants, rebound tenderness, is not appreciated, voluntary guarding, is not appreciated, involuntary guarding, is not appreciated. 15:07 Back: pain, is absent, ROM is normal. 15:07 Skin: cellulitis, is not appreciated, no rash present. 15:07 Neuro: Orientation: to person, situation, Mentation: able to follow commands, slow to respond, Motor: moves all fours, strength is normal, Sensation: is normal. Vital Signs: 14:51 BP 136 / 74; Pulse 74; Resp 18; Temp 98.7; Pulse Ox 96% ; Weight 86.18 kg; Height 5 ft. zb 10 in. (177.80 cm); 16:15 BP 111 / 64; Pulse 72; Resp 17; Pulse Ox 95% on R/A; mh5 17:50 BP 120 / 84; Pulse 80; Resp 16; Pulse Ox 97% on R/A; zb 19:19 BP 144 / 94; Pulse 64; Resp 18; Pulse Ox 96% on R/A; zb 20:11 BP 143 / 83; Pulse 74; Resp 16; Pulse Ox 98% on R/A; zb 21:19 BP 144 / 93; Pulse 77; Resp 18; Pulse Ox 100% on R/A; zb 22:30 BP 145 / 92; Pulse 71; Resp 16; Pulse Ox 97% on R/A; zb 23:17 BP 142 / 83; Pulse 87; Resp 16; Pulse Ox 97% on R/A; zb 14:51 Body Mass Index 27.26 (86.18 kg, 177.80 cm) zb MDM: 15:05 Patient medically screened. cp 21:30 Data reviewed: vital signs, nurses notes, lab test result(s), EKG, radiologic studies, cp CT scan, plain films, I have discussed the patient's presentation/case with the attending Emergency Department Physician;. 21:30 Differential Diagnosis: GI bleed, idiopathic syncope, seizure, sepsis, alcohol cp intoxication, illegal drug use. Test interpretation: by ED physician or midlevel provider: ECG, plain radiologic studies. Counseling: I had a detailed discussion with the patient and/or guardian regarding: the historical points, exam findings, and any diagnostic results supporting the discharge/admit diagnosis, lab results, radiology results. Physician consultation: Douglas HEARN was contacted at 21:25, regarding admission, to the telemetry unit. patient's condition, in the emergency department to see patient at 21:30, recommends discharge to home with who will continue to monitor patient. 23:10 ED course: VSS. Patient observed ambulating in ED unassisted. Appears non-toxic. cp Discussed elevated alcohol level. Will discharge home with who will continue to monitor patient. 01/07 14:56 Order name: Basic Metabolic Panel cp 01/07 14:56 Order name: CBC with Diff; Complete Time: 16:45 cp 01/07 16:45 Interpretation: Normal except: RBC 4.01; MCV 103.4; MN% 12.8. cp 02/ 14:56 Order name: LFT's cp 01/07 14:56 Order name: Magnesium cp 01/07 14:56 Order name: NT PRO-BNP; Complete Time: 16:45 cp 02/ 14:56 Order name: PT-INR; Complete Time: 16:45 cp 01/07 14:56 Order name: Troponin (emerg Dept Use Only); Complete Time: 16:45 cp 01/07 14:57 Order name: Basic Metabolic Panel; Complete Time: 16:45 EDMS 02 16:56 Interpretation: Normal except: NA 146. cp 01/07 14:57 Order name: Liver (Hepatic) Function; Complete Time: 16:45 EDMS 02 16:58 Interpretation: Normal except: AST 193; ALT 122; ALK 190; BILID 0.4; GLOB 4.4; A/G 0.9. cp 01/07 14:57 Order name: Magnesium; Complete Time: 16:45 EDMS 01/07 15:03 Order name: AMMONIA; Complete Time: 16:45 cp 01/07 15:03 Order name: ETOH Level; Complete Time: 16:45 cp 01/07 16:57 Interpretation: Abnormal: ETOH 429. cp 01/07 15:03 Order name: UDS; Complete Time: 16:15 cp 01/07 15:03 Order name: Procalcitonin; Complete Time: 16:45 cp 01/07 14:56 Order name: CT Head C Spine; Complete Time: 16:15 cp 01/07 16:15 Interpretation: Reviewed report. cp 01/07 14:56 Order name: XRAY Chest (1 view); Complete Time: 16:45 cp 01/07 14:56 Order name: EKG; Complete Time: 14:57 cp 01/07 14:56 Order name: Cardiac monitoring; Complete Time: 15:01 cp 01/07 14:56 Order name: EKG - Nurse/Tech; Complete Time: 15:01 cp 01/07 15:03 Order name: Lactate; Complete Time: 16:45 cp 01/07 16:57 Interpretation: Abnormal: LAC 2.5. cp / 15:03 Order name: Blood Culture Adult (2) cp 01/07 15:03 Order name: Urine Microscopic Only; Complete Time: 16:15 cp 01/07 15:37 Order name: Urine Dipstick--Ancillary (enter results) bd 01/07 15:38 Order name: Urine Dipstick-Ancillary; Complete Time: 16:15 EDMS 01/07 21:13 Order name: Lactate Sepsis 2 HR Follow-up; Complete Time: 21:24 EDMS 01/07 14:56 Order name: IV Saline Lock; Complete Time: 15:28 01/07 14:56 Order name: Labs collected and sent; Complete Time: 16:07 01/07 14:56 Order name: O2 Per Protocol; Complete Time: 15:27 01/07 14:56 Order name: O2 Sat Monitoring; Complete Time: 15:28 01/07 15:03 Order name: Urine Dipstick-Ancillary (obtain specimen); Complete Time: 16:30 cp EC:03 Rate is 73 beats/min. Rhythm is regular. MA interval is normal. QRS interval is normal. cp QT interval is normal. T waves are Inverted in leads III, aVR. Interpreted by me. Reviewed by me. Administered Medications: 16:00 Drug: NS 0.9% 1000 ml Route: IV; Rate: 1 bolus; Site: left antecubital; zb 22:34 Follow up: Response: No adverse reaction; IV Status: Completed infusion; IV Intake: zb 1000ml 17:08 Not Given (Duplicate Order): NS 0.9% 1000 ml IV at 1 bolus Per protocol; 1000 mL bolus zb 19:30 Drug: NS 0.9% 1000 ml Route: IV; Rate: 1 bolus; Site: right antecubital; zb 22:34 Follow up: Response: No adverse reaction; IV Status: Completed infusion; IV Intake: zb 1000ml 22:34 Drug: Lactulose 30 grams Volume: 45 ml; Route: PO; zb 23:00 Follow up: Response: No adverse reaction zb Disposition: 23:20 Chart complete. 01/08 16:57 Co-signature as Attending Physician, Chris Craig MD I agree with the assessment and kdr plan of care. Disposition: 01/07/21 23:11 Discharged to Home. Impression: Abnormal results of liver function studies, Hepatic Encephelopathy. - Condition is Stable. - Discharge Instructions: Hepatic Encephalopathy. - Medication Reconciliation Form, Thank You Letter, Antibiotic Education, Prescription Opioid Use form. - Follow up: Private Physician; When: 1 - 2 days; Reason: Recheck today's complaints. - Problem is new. - Symptoms have improved. Signatures: Dispatcher [employer] Chris Escamilla MD MD kdr Page, Corey, PA PA cp Brown, Zipporah RN RN zb Corrections: (The following items were deleted from the chart) 01/07 23:10 21:52 Hospitalization Ordered by Sony Carmona for Observation. Preliminary diagnosis cp is Hepatic Encephelopathy; Alcohol abuse with intoxication; Abnormal results of liver function studies. Bed requested for Telemetry/MedSurg (observation). Status is Observation. Condition is Stable. Problem is new. Symptoms have improved. cp 23:18 23:11 01/07/2021 23:11 Discharged to Home. Impression: Abnormal results of liver zb function studies; Hepatic Encephelopathy. Condition is Stable. Forms are Medication Reconciliation Form, Thank You Letter, Antibiotic Education, Prescription Opioid Use. Follow up: Private Physician; When: 1 - 2 days; Reason: Recheck today's complaints. Problem is new. Symptoms have improved. cp
--- NOTE | 2021-01-07 21:52 | ER ---
Nurse's Notes [facility] Name: Koko Iniguez Age: 55 yrs Sex: Male : 1965 Arrival Date: 01/07/2021 Time: 14:50 Bed 17 Private MD: Diagnosis: Abnormal results of liver function studies;Hepatic Encephelopathy Presentation: 01/07 14:51 Chief complaint: EMS states: pt was found unresponsive according to EMS coming from home, called EMS states fell in the restroom. EMS states the woke up within 30 sec of arrive aox 2. Pt has history of multiple syncopal episodes. No history of seizures. or seizure like activity noted at that time. When patient arrive to hospital aox4. hx of hepatic encephalopathy and HTN. Glucose 118. VSS. Coronavirus screen: At this time, the client does not indicate any symptoms associated with coronavirus-19. Ebola Screen: No symptoms or risks identified at this time. Initial Sepsis Screen: Does the patient meet any 2 criteria? No. Patient's initial sepsis screen is negative. Does the patient have a suspected source of infection? No. Patient's initial sepsis screen is negative. Risk Assessment: Do you want to hurt yourself or someone else? Patient reports no desire to harm self or others. Onset of symptoms was January 07, 2021. Care prior to arrival: IV initiated. 20 GA, in the left antecubital area. 14:51 Acuity: VIRGILIO 3 zb 14:51 Method Of Arrival: EMS: [facility] zb Historical: - Allergies: 15:01 PENICILLINS; zb - PMHx: 15:01 Hyperlipidemia; Hypertension; Thyroid problem; zb - PSHx: 15:01 Cholecystectomy; zb - Immunization history:: Adult Immunizations up to date. - Social history:: Smoking status: Patient denies any tobacco usage or history of. Screenin:58 Abuse screen: Denies threats or abuse. Denies injuries from another. Nutritional zb screening: No deficits noted. Tuberculosis screening: No symptoms or risk factors identified. Fall Risk Fall in past 12 months (25 points). No secondary diagnosis (0 pts). IV access (20 points). Ambulatory Aid- None/Bed Rest/Nurse Assist (0 pts). Gait- Normal/Bed Rest/Wheelchair (0 pts) Mental Status- Oriented to own ability (0 pts). [place] Fall Scale indicates Low Risk Score (25-44 pts). Fall prevention measures have been instituted. Side Rails Up X 2 Placed close to Nursing Station Frequent Obs/Assesments occuring As available Patient and Family Educated on Fall Prevention Program and strategies. Assessment: 15:00 General: Appears in no apparent distress. Behavior is calm, cooperative, appropriate zb for age, Smells of alcohol, history of multiple syncopal episodes. pt denies history of drinking.. Pain: Denies pain. Neuro: Level of Consciousness is awake, alert, obeys commands, Oriented to person, place, time, situation, Asphalt Still Operator are equal bilaterally Moves all extremities. Gait is steady, Speech is normal, Facial symmetry appears normal, Pupils are PERRLA, Intact. Cardiovascular: Heart tones S1 S2 present Capillary refill < 3 seconds in bilateral fingers Patient's skin is warm and dry. Rhythm is regular. Respiratory: Airway is patent Respiratory effort is even, unlabored, Respiratory pattern is regular, symmetrical. GI: Abdomen is round non-distended, Bowel sounds present X 4 quads. Abd is soft and non tender X 4 quads. : No signs and/or symptoms were reported regarding the genitourinary system. : No signs and/or symptoms were reported regarding the genitourinary system. EENT: Sclera/Cornea yellow tinted . Derm: Skin is intact, is healthy with good turgor, Skin is dry, Skin is normal, Skin temperature is warm. Musculoskeletal: Circulation, motion, and sensation intact. Capillary refill < 3 seconds, in bilateral Range of motion: intact in all extremities. 16:00 Reassessment: Patient appears in no apparent distress at this time. Patient and/or zb family updated on plan of care and expected duration. Pain level reassessed. Patient is alert, oriented x 3, equal unlabored respirations, skin warm/dry/pink. pt currently on the phone with his . 17:17 Reassessment: pt states he is ready to go home. wanted to leave AMA notified provider. shivam ECP spoke to patient. 17:23 Reassessment: patient walked out.notifed ECP. shivam 17:38 Reassessment: pt escorted back to room by ROMAN COBOS and charge nurse. zb 17:41 Reassessment: pt agrees to remain in ER until medical workup is complete and until he iw can arrange safe transportation home. 18:30 Reassessment: Patient appears in no apparent distress at this time. Patient and/or zb family updated on plan of care and expected duration. Pain level reassessed. Patient is alert, oriented x 3, equal unlabored respirations, skin warm/dry/pink. pt remains pleasant but anxious. educated on the importance of treatment. pt states he doesn't want his to find out that the drinks. 19:19 Reassessment: Patient appears in no apparent distress at this time. Patient and/or zb family updated on plan of care and expected duration. Pain level reassessed. Patient is alert, oriented x 3, equal unlabored respirations, skin warm/dry/pink. ECP spoke to patient. patient agreed to treatment. IV replaced and fluids started. 19:51 Reassessment: IV fluid continues to infuse. updated patient on plan of care. zb 20:11 Reassessment: Patient appears in no apparent distress at this time. Patient and/or zb family updated on plan of care and expected duration. Pain level reassessed. Patient is alert, oriented x 3, equal unlabored respirations, skin warm/dry/pink. IV fluid continues to infuse. 21:19 Reassessment: Patient appears in no apparent distress at this time. Patient and/or zb family updated on plan of care and expected duration. Pain level reassessed. Patient is alert, oriented x 3, equal unlabored respirations, skin warm/dry/pink. pt in room resting quietly. IV fluids completed. 22:19 Reassessment: Patient appears in no apparent distress at this time. Patient and/or zb family updated on plan of care and expected duration. Pain level reassessed. Patient is alert, oriented x 3, equal unlabored respirations, skin warm/dry/pink. pt at bedside. no changes to care at this time. patient awaiting ride, must come up per MD discretion. 23:17 Reassessment: d/c instructions given. gait steady and even. patient's was at bedside. Vital Signs: 14:51 BP 136 / 74; Pulse 74; Resp 18; Temp 98.7; Pulse Ox 96% ; Weight 86.18 kg; Height 5 ft. zb 10 in. (177.80 cm); 16:15 BP 111 / 64; Pulse 72; Resp 17; Pulse Ox 95% on R/A; mh5 17:50 BP 120 / 84; Pulse 80; Resp 16; Pulse Ox 97% on R/A; zb 19:19 BP 144 / 94; Pulse 64; Resp 18; Pulse Ox 96% on R/A; zb 20:11 BP 143 / 83; Pulse 74; Resp 16; Pulse Ox 98% on R/A; zb 21:19 BP 144 / 93; Pulse 77; Resp 18; Pulse Ox 100% on R/A; zb 22:30 BP 145 / 92; Pulse 71; Resp 16; Pulse Ox 97% on R/A; zb 23:17 BP 142 / 83; Pulse 87; Resp 16; Pulse Ox 97% on R/A; zb 14:51 Body Mass Index 27.26 (86.18 kg, 177.80 cm) zb ED Course: 14:50 Patient arrived in ED. zb 14:54 Dank Barbosa PA is PHCP. cp 14:54 Chris Craig MD is Attending Physician. cp 15:00 Triage completed. zb 15:01 Jessenia Rand, ELLE is Primary Nurse. zb 15:11 CT Head C Spine In Process Unspecified. EDMS 15:32 XRAY Chest (1 view) In Process Unspecified. EDMS 15:42 Urine Dipstick--Ancillary (enter results) Sent. zb 16:09 Blood Culture Adult (2) Sent. mh5 16:09 Lactate Sent. mh5 16:09 ETOH Level Sent. mh5 16:09 Procalcitonin Sent. mh5 16:10 AMMONIA Sent. mh5 16:10 Magnesium Sent. mh5 16:10 Liver (Hepatic) Function Sent. mh5 16:10 Basic Metabolic Panel Sent. mh5 16:10 Basic Metabolic Panel Sent. mh5 16:10 CBC with Diff Sent. mh5 16:10 LFT's Sent. mh5 16:10 Magnesium Sent. mh5 16:11 NT PRO-BNP Sent. mh5 16:11 PT-INR Sent. mh5 16:11 Troponin (emerg Dept Use Only) Sent. mh5 16:11 Initial lab(s) drawn, by me, sent to lab. Urine collected: clean catch specimen, clear, mh5 EKG done, by ED staff, reviewed by Dank HEARN. Maintain EMS IV. Dressing intact. Site clean \T\ dry. 16:11 Patient has correct armband on for positive identification. Placed in gown. Bed in low mh5 position. Call light in reach. Side rails up X 1. classroom monitor on. Pulse ox on. NIBP on. 16:29 Arm band placed on right wrist. zb 19:50 Jessenia Rand RN is Primary Nurse. zb 21:50 Sony Carmona is Hospitalizing Provider. cp 23:17 No provider procedures requiring assistance completed. IV discontinued, intact, zb bleeding controlled, No redness/swelling at site. Pressure dressing applied. Administered Medications: 16:00 Drug: NS 0.9% 1000 ml Route: IV; Rate: 1 bolus; Site: left antecubital; zb 22:34 Follow up: Response: No adverse reaction; IV Status: Completed infusion; IV Intake: zb 1000ml 17:08 Not Given (Duplicate Order): NS 0.9% 1000 ml IV at 1 bolus Per protocol; 1000 mL bolus zb 19:30 Drug: NS 0.9% 1000 ml Route: IV; Rate: 1 bolus; Site: right antecubital; zb 22:34 Follow up: Response: No adverse reaction; IV Status: Completed infusion; IV Intake: zb 1000ml 22:34 Drug: Lactulose 30 grams Volume: 45 ml; Route: PO; zb 23:00 Follow up: Response: No adverse reaction zb Intake: 22:34 IV: 1000ml; Total: 1000ml. zb 22:34 IV: 1000ml; Total: 2000ml. zb Outcome: 21:52 Decision to Hospitalize by Provider. cp 23:11 Discharge ordered by MD. cp 23:18 Discharged to home ambulatory. zb 23:18 Condition: stable 23:18 Discharge instructions given to patient, Instructed on discharge instructions, follow up and referral plans. Demonstrated understanding of instructions, follow-up care. 23:18 Patient left the ED. zb Signatures: Dispatcher [employer] EDMS Taylor Jauregui RN RN iw Page, Corey, PA PA cp Martinez, Maria [facility] Jessenia Rand RN RN zb Corrections: (The following items were deleted from the chart) 16:25 14:51 Chief complaint: EMS states: pt was found unresponsive according to EMS. states zb the woke up within 30 sec of arrive aox 2. Pt has history of multiple syncopal episodes. No history of seizures. or seizure like activity noted at that time. When patient arrive to hospital aox4. hx of hepatic encephalopathy and HTN. Glucose 118. VSS. zb 17:36 15:00 General: Appears in no apparent distress. Behavior is calm, cooperative, zb appropriate for age, history of multiple syncopal episodes. . zb 17:56 17:38 Reassessment: pt escorted back to room by ECP sukhdevb zb
[2021-01-07] MEDS ORDERED: LACTULOSE 20 GM/30 ML UCUP ONE (22:44)
[2021-01-07 23:23] VITALS: TEMP 98.7
[2021-01-07 23:30] VITALS: O2SAT 97
[2021-01-07 23:31] VITALS: BP 142/83
== END 2021-01-07 23:18 | disposition home or self-care (01) ==
LOC: ER 14:39
DX: K72.90 Hepatic failure, unspecified without coma (principal); R94.5 Abnormal results of liver function studies; I10 Essential (primary) hypertension; Z88.0 Allergy status to penicillin
CPT/HCPCS: 96361; 93005; 87040 ×2; 85025; 80048; 36415; 80320; 82140; 83735; 85610; 80076; 80307 ×8; 83605 ×2; 84484; 84145; 83880; 70450; 72125; 71045; 96360; 99285; J7030 ×2; 81003; 81015